=== PATIENT | male | born 1945 | race Caucasian/White ===

== ENCOUNTER 2016-08-05 09:28 | Emergency (ER) | payer MEDICARE, OTHER ==
[2016-08-05] MEDS ORDERED: IPRATROPIUM/ALBUTEROL SULFATE 3 ML AMPUL.NEB NEB ONE (09:36)
[2016-08-05] MEDS ORDERED: metroNIDAZOLE/SODIUM CHLORIDE 500 MG in PREMIX BAG 1 BAG IV ONE (09:37)
[2016-08-05] MEDS ORDERED: KETOROLAC TROMETHAMINE 30 MG/1ML VIAL IVP ONE (09:38)
[2016-08-05 09:57] LABS: BASOPHILS % 0.4 (0.0-1.5); EOSINOPHILS % 2.1 % (0.0-6.8); LYMPHOCYTES # 1.9 # k/uL (0.6-4.0); MONOCYTES # 0.7 # k/uL (0.0-0.9); MONOCYTES % 5.7 % (0.0-11.0)
[2016-08-05 10:15] LABS: eGFR (African) > 60; eGFR (Non-African) > 60
--- NOTE | 2016-08-05 11:10 | Diagnostic Imaging Report ---
[facility] [address] [facility].[address] 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 COMPARISON: 04/22/2016 TECHNIQUE: 2 views of the chest were performed. FINDINGS: The lungs are hyperexpanded. ~Postoperative changes of CABG and left chest AICD are re-identified. ~There is question of subtle new right basilar infiltrate. ~No pneumothorax. ~The heart is borderline enlarged. IMPRESSION: 1. ~Pulmonary hyperexpansion and postoperative changes of the heart. 2. ~Subtle increased opacity in the right lung base may represent developing pneumonia. ~ Electronically signed on Aug 05, 2016 11:04:23 AM [employer] MAINFRAME SYSTEMS PROGRAMMER by: Bill Pena [facility]PITALViolet
--- NOTE | 2016-08-05 11:21 | ED Physician Documentation ---
Upper Respiratory Symptoms - HISTORIAN Historian: patient, spouse - HPI Stated Complaint: SOA and cough Chief Complaint: Cough/ Upper Respiratory Onset: days ago (3) Context: denies: recent foreign travel, insect bite(s), tick(s), recent chemotherapy Associated Symptoms: fever, chills, productive cough, shortness of breath Further Comments: yes (71 year old male patient presents with complaint of SOB, cough, fever and chills for the past 3 days.) - ROS CONST/EYES: denies: weakness CVS/RESP: shortness of breath. denies: chest pain LYMPH: denies: leg swelling, rash GI/: none NEURO/PSYCH: denies: fainting, dizziness MS/SKIN: denies: joint pain, muscle aches - PAST HX Lung Disease: none PE Risk Factors: hypertension Other History: cardiac disease, AMI, CHF, A-Fib, diabetes Type 2, hypertension, other (BPH, CVA 2013, EF 25% 2015) Surgeries/Procedures: cardiac bypass (09/2011), other (spleenectomy, cardiac cath 04/2016, PPM 10/2012) Allergies/Adverse Reactions: Allergies Allergy/AdvReac Type Severity Reaction Status Date / Time carbamazepine [From Tegretol] Allergy Verified 08/05/16 10:08 penicillin G Allergy Verified 08/05/16 10:08 phenytoin sodium Allergy Verified 08/05/16 10:08 [From Dilantin] phenytoin sodium extended Allergy Verified 08/05/16 10:08 [From Dilantin] Home Medications: Ambulatory Orders Medication Instructions Recorded Aspirin EC [Ecotrin] 81 mg PO DAILY 04/16/16 Atorvastatin Calcium [Lipitor] 80 mg PO HS 04/16/16 Finasteride [Proscar] 5 mg PO HS 04/16/16 Furosemide [Lasix] 40 mg PO BID 04/16/16 Glimepiride [Amaryl] 4 mg PO DAILY 04/16/16 Insulin Glargine,Hum.rec.anlog 10 units SQ AM 04/16/16 [Lantus Solostar] Insulin Glargine,Hum.rec.anlog 25 units SQ HS 04/16/16 [Lantus Solostar] Isosorbide Mononitrate [Imdur] 90 mg PO DAILY 04/16/16 Losartan Potassium [Cozaar] 25 mg PO DAILY 04/16/16 Nitroglycerin 0.4 mg SL DIRECTED PRN 04/16/16 Omeprazole [Prilosec] 40 mg PO DAILY 04/16/16 Spironolactone [Aldactone] 12.5 mg PO DAILY 04/16/16 Tamsulosin HCl [Flomax] 0.4 mg PO DAILY 04/16/16 Tramadol HCl [Ultram] 50 mg PO Q12 04/16/16 Warfarin Sodium 2.5 mg PO DAILY 04/16/16 - SOCIAL HX Smoking History: non-smoker - FAMILY HX Family History: denies: none - VITAL SIGNS Vital Signs: Vital Signs Temp Pulse Resp BP Pulse Ox 97.4 F L 54 L 18 138/76 97 08/05/16 09:29 08/05/16 11:00 08/05/16 09:29 08/05/16 09:29 08/05/16 11:00 - REVIEWED ASSESSMENTS Nursing Assessment Reviewed: Yes Vitals Reviewed: Yes Progress - Progress Progress: Multiple episodes of bradycardia noted, as low at 35 and 38 bpm, dual chamber ICD pacemaker. Heart rate ranging from 45-60. states Dr Mayes "had to call the i-marker and they set it lower during his last appointment because it wasn't doing right." Discussed lab and xray results with patient and , recommended consult with cardiology regarding rate. Patient agrees. 1145 Case discussed with Cardiology at [facility], will accept to Er for pacemaker evaluation. Patient accepted by Dr Miguel Mcclain. Will continue O2, levaquin started for CAP, blood cultures completed. ED Results Lab/Radiology - Lab Results Lab Results: Lab Results 08/05/16 08/05/16 08/05/16 10:48 09:50 09:50 WBC RBC Hgb Hct MCV MCH MCHC RDW Plt Count Neut % (Auto) Lymph % (Auto) [place] % (Auto) Eos % (Auto) Baso % (Auto) Neut # Lymph # [place] # Eos # Baso # Reactive Lymphs % Reactive Lymphs # PT 27.4 Seconds H Seconds (9.7-11.5) INR 2.5 H (0.9-1.1) Sodium Potassium Chloride Carbon Dioxide BUN Creatinine Estimated Creat Clear Est GFR ( Amer) Est GFR (Non-Af Amer) Glucose Calcium Total Bilirubin AST ALT Alkaline Phosphatase Troponin I < 0.03 ng/mL ng/mL (0.00-0.06) Total Protein Albumin Influenza Type A Ag Negative (NEGATIVE) Influenza Type B Ag Negative (NEGATIVE) 08/05/16 08/05/16 09:50 09:50 WBC 13.02 K/ul H K/ul (4.00-12.00) RBC 4.37 M/ul M/ul (3.90-5.20) Hgb 11.8 g/dL L g/dL (12.0-18.0) Hct 37.4 % % (37.0-53.0) MCV 85.4 fl fl (80.0-100.0) MCH 27.0 pg L pg (28.0-34.0) MCHC 31.6 g/dL g/dL (30.0-36.0) RDW 17.3 % H % (11.3-14.3) Plt Count 233 K/mm3 K/mm3 (130-400) Neut % (Auto) 76.7 % % (39.0-79.0) Lymph % (Auto) 14.3 % L % (16.0-50.0) [place] % (Auto) 5.7 % % (0.0-11.0) Eos % (Auto) 2.1 % % (0.0-6.8) Baso % (Auto) 0.4 (0.0-1.5) Neut # 10.0 # k/uL H # k/uL (1.4-7.7) Lymph # 1.9 # k/uL # k/uL (0.6-4.0) [place] # 0.7 # k/uL # k/uL (0.0-0.9) Eos # 0.3 # k/uL # k/uL (0.0-0.6) Baso # 0.0 # k/uL # k/uL (0.0-0.5) Reactive Lymphs % 0.9 % % (0.0-5.0) Reactive Lymphs # 0.1 # k/uL # k/uL (0.0-0.8) PT INR Sodium 138 mmol/L mmol/L (136-145) Potassium 4.0 mmol/L mmol/L (3.5-5.0) Chloride 112 mmol/L H mmol/L (98-110) Carbon Dioxide 29 mmol/L mmol/L (20-32) BUN 23 mg/dL mg/dL (10-26) Creatinine 0.9 mg/dL mg/dL (0.4-1.5) Estimated Creat Clear 75 Est GFR ( Amer) > 60 (60 - ) Est GFR (Non-Af Amer) > 60 (60 - ) Glucose 108 mg/dL H mg/dL (70-99) Calcium 9.2 mg/dL mg/dL (8.5-10.5) Total Bilirubin 0.6 mg/dL mg/dL (0.2-1.2) AST 32 U/L U/L (0-41) ALT 53 U/L H U/L (0-45) Alkaline Phosphatase 79 U/L U/L (46-116) Troponin I Total Protein 7.1 g/dL g/dL (6.0-8.5) Albumin 4.4 g/dL g/dL (3.0-5.5) Influenza Type A Ag Influenza Type B Ag - Radiology Radiology Impressions: HISTORY: 71-year-old male with cough and shortness of breath. COMPARISON: 04/22/2016 TECHNIQUE: 2 views of the chest were performed. FINDINGS: The lungs are hyperexpanded. Postoperative changes of CABG and left chest AICD are re-identified. There is question of subtle new right basilar infiltrate. No pneumothorax. The heart is borderline enlarged. IMPRESSION: 1. Pulmonary hyperexpansion and postoperative changes of the heart. 2. Subtle increased opacity in the right lung base may represent developing pneumonia. - Orders Orders: ED Orders Category Date Time Status Continuous EKG monitoring Q30M Care 08/05/16 09:35 Active Continuous Pulse Oximetry Q30M Care 08/05/16 09:[address] Saline Lock/IV NOW Care 08/05/16 09:35 Active CHEST 2 VIEW [CHEST P.A.&LAT 2 VIEWS] [RAD] Stat Exams 08/05/16 Completed BLOOD CULTURE Stat Lab 08/05/16 Ordered CBC/PLATELET/DIFF Stat Lab 08/05/16 09:50 Completed CMP Stat Lab 08/05/16 09:50 Completed INFLUENZA A&B Stat Lab 08/05/16 10:48 Completed PT [PT-INR] Stat Lab 08/05/16 09:50 Completed TROPONIN I (cTnI) Stat Lab 08/05/16 09:50 Completed UA W/MICRO IF INDICATED Stat Lab 08/05/16 09:35 Ordered Ipratropium/Albuterol Sulfate [Duoneb] Med 08/05/16 09:36 Discontinued 3 ml NEB NOW ONE Ketorolac Tromethamine [Toradol] Med 08/05/16 09:38 Discontinued 30 mg IVP NOW ONE Levofloxacin 250Mg/D5w 50Ml [Levaquin] 250 mg Med 08/05/16 11:40 Ordered Premix Bag [Premix Fluid] 1 bag IV NOW Levofloxacin 500Mg/D5w 100Ml [Levaquin] 500 mg Med 08/05/16 11:40 Ordered Premix Bag [Premix Fluid] 1 bag IV NOW metroNIDAZOLE/SODIUM CHLORIDE [Flagyl] 500 mg Med 08/05/16 09:37 Discontinued Premix Bag [Premix Fluid] 1 bag IV NOW Oxygen Daily Oxygen 08/05/16 10:45 Ordered EKG WITH COMPARISON Stat Ther 08/05/16 10:17 Ordered Upper Respiratory Symptoms - EXAM General Appearance: mild distress EENT: eyes nml inspection, nml ENT inspection, lids & conjunct. 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: oriented x3, neuro intact, mood/affect nml, CN's nml as tested Discharge Clincal Impression: CAP (community acquired pneumonia), Bradycardia Home Medications: Ambulatory Orders Aspirin EC [Ecotrin] 81 mg PO DAILY 04/16/16 Atorvastatin Calcium [Lipitor] 80 mg PO HS 04/16/16 Finasteride [Proscar] 5 mg PO HS 04/16/16 Furosemide [Lasix] 40 mg PO BID 04/16/16 Glimepiride [Amaryl] 4 mg PO DAILY 04/16/16 Insulin Glargine,Hum.rec.anlog [Lantus Solostar] 10 units SQ AM 04/16/16 Insulin Glargine,Hum.rec.anlog [Lantus Solostar] 25 units SQ HS 04/16/16 Isosorbide Mononitrate [Imdur] 90 mg PO DAILY 04/16/16 Losartan Potassium [Cozaar] 25 mg PO DAILY 04/16/16 Nitroglycerin 0.4 mg SL DIRECTED PRN 04/16/16 Omeprazole [Prilosec] 40 mg PO DAILY 04/16/16 Spironolactone [Aldactone] 12.5 mg PO DAILY 04/16/16 Tamsulosin HCl [Flomax] 0.4 mg PO DAILY 04/16/16 Tramadol HCl [Ultram] 50 mg PO Q12 04/16/16 Warfarin Sodium 2.5 mg PO DAILY 04/16/16 Condition: Fair Disposition: 02 XFER SHT-TRM HOSP Decision to Admit: NO Decision Time: 11:57
[2016-08-05] MEDS ORDERED: LEVOFLOXACIN 500MG/D5W 100ML 500 MG in PREMIX BAG 1 BAG IV ONE (11:40)
[2016-08-05] MEDS ORDERED: LEVOFLOXACIN 250MG/D5W 50ML 250 MG in PREMIX BAG 1 BAG IV ONE (11:40)
[2016-08-05] MEDS ORDERED: LEVOFLOXACIN 500MG/D5W 100ML 100 ML IV ONE (11:59)
[2016-08-05] MEDS ORDERED: LEVOFLOXACIN 250MG/D5W 50ML 50 ML IV ONE (12:00)
[2016-08-05 12:45] VITALS: BP 114/65
== END 2016-08-05 12:35 | disposition short-term general hospital (02) ==
LOC: ED 09:28
DX: J18.9 Pneumonia, unspecified organism (principal); R00.1 Bradycardia, unspecified; I10 Essential (primary) hypertension; E11.9 Type 2 diabetes mellitus without complications; I25.10 Atherosclerotic heart disease of native coronary artery without angina pectoris; I50.9 Heart failure, unspecified
CPT/HCPCS: 71020; 80053; 84484; 85025; 85610; 87040; 87400; 93005; J1956; 94640; 96365; 96367; 96375; 99284; S1016

== ENCOUNTER 2016-08-21 08:27 | Outpatient (CLI) | payer MEDICARE, OTHER | END 2016-08-21 08:30 | LOC: LAB 08:27 | PROVIDERS: ATTEND Internal Medicine Cardiovascular Disease | DX: Z51.81 Encounter for therapeutic drug level monitoring (principal); Z79.01 Long term (current) use of anticoagulants; I48.2 Chronic atrial fibrillation | CPT/HCPCS: 36415; 85610 ==

== ENCOUNTER 2016-08-27 14:16 | Outpatient (CLI) | payer MEDICARE, OTHER | END 2016-08-27 14:20 | LOC: CARD 14:16 | PROVIDERS: ATTEND Internal Medicine Cardiovascular Disease | DX: I25.5 Ischemic cardiomyopathy (principal) | CPT/HCPCS: G0463 ==

== ENCOUNTER 2016-09-02 08:40 | Outpatient (CLI) | payer MEDICARE, OTHER | END 2016-09-02 08:42 | LOC: LAB 08:40 | PROVIDERS: ATTEND Internal Medicine Cardiovascular Disease | DX: I48.2 Chronic atrial fibrillation (principal); Z79.01 Long term (current) use of anticoagulants | CPT/HCPCS: 36415; 85610 ==

== ENCOUNTER 2016-09-11 07:49 | Outpatient (CLI) | payer MEDICARE, OTHER | END 2016-09-11 07:50 | LOC: POD 07:49 | PROVIDERS: ATTEND Podiatrist Public Medicine | DX: E11.9 Type 2 diabetes mellitus without complications (principal); B35.1 Tinea unguium; L60.0 Ingrowing nail; M79.674 Pain in right toe(s); M79.675 Pain in left toe(s) | CPT/HCPCS: 11721; G0463 ==

== ENCOUNTER 2016-09-16 15:06 | Emergency (ER) | payer MEDICARE, OTHER ==
[2016-09-16] MEDS ORDERED: NITROGLYCERIN/D5W 250 ML IV ONE (15:15)
[2016-09-16] MEDS ORDERED: 0.9 % SODIUM CHLORIDE 1,000 ML IV ONE (15:16)
[2016-09-16 15:26] LABS: BASOPHILS % 0.4 (0.0-1.5); EOSINOPHILS % 1.5 % (0.0-6.8); LYMPHOCYTES # 2.4 # k/uL (0.6-4.0); MEAN CORPUSCULAR HEMOGLOBIN 26.9 pg (28.0-34.0); MONOCYTES # 0.9 # k/uL (0.0-0.9); MONOCYTES % 9.8 % (0.0-11.0); NEUTROPHILS # 5.6 # k/uL (1.4-7.7)
[2016-09-16] MEDS ORDERED: IPRATROPIUM/ALBUTEROL SULFATE 3 ML AMPUL.NEB NEB ONE (15:29)
[2016-09-16 15:43] LABS: eGFR (African) > 60; eGFR (Non-African) > 60
--- NOTE | 2016-09-16 15:58 | Diagnostic Imaging Report ---
GURJIT MCKEON (CREATIVE ENGAGEMENT DIRECTOR) - ER [facility] [address] [facility].[address] [address] Report Submission Date: Sep 16, 2016 3:35:23 PM SEE WHEELER Patient Study Name: KIMBER JOSEPH Date: Sep 16, 2016 3:19:01 PM SEE WHEELER MRN: [id number] Modality Type: CR Gender: M Description: CHEST : 43 Institution: [facility] Physician: GURJIT MCKEON (VIKAS) - ER Portable chest History: Chest pain, cough, shortness of breath Findings: Low lung volumes are observed. Cardiomegaly, central pulmonary artery and large mid, pulmonary vascular congestion, implantable cardiac defibrillator , and coronary artery bypass grafting are observed. There is no confluent infiltrate or pleural effusion. Pulmonary edema has resolved or nearly resolved since the August 05, 2016 exam. Impression: Mild congestive heart failure, improved since the prior exam. Electronically signed on Sep 16, 2016 3:35:23 PM SEE WHEELER by: Kimber PARIKH
[2016-09-16] MEDS ORDERED: methylPREDNISolone SOD SUCC 125 MG/2 ML VIAL IVP ONE (17:08)
--- NOTE | 2016-09-16 17:15 | ED Physician Documentation ---
Syncope/Near Syncope - HISTORIAN Historian: patient - HPI Stated Complaint: chest pain Chief Complaint: Near Syncope Witnessed: Yes Witnessed By: bystander Position at Time of Episode: standing Symptoms Prior to Episode: chest pain Character of Events(s): almost passed out Symptoms after Event: denies: confused after event, incontinent of urine, breathing shallow, breathing stopped, lost pulse Location of Injury: none Associated Symptoms: none Further Comments: yes (71 year old male patient brought in via EMS. Patient was exercising at the PT when he experience CP, his gave him 2 nitro tabs. Patient had near syncopal episode after the 2nd nitro tab. EMS was called. On arrival to ER patient c/o 11/11 chest pain, c/o cough. Denies SOB, denies edema in ankle or lower extremities. States he has been feeling good this week , except for his cough.) - ROS CONST: cough. denies: fever, chills EYES/ENT: none GI/: denies: diarrhea, black stools, problems urinating MS/SKIN/LYMPH: denies: joint pain, leg swelling, rash, swollen glands, ankle swelling NEURO/PSYCH: denies: confusion, anxiety, depression, other - PAST HX Cardiac Disease: CHF, AMI PE Risk Factors: hypertension Other History: diabetes Type 2, Other (BPH, CVA 2013, EF 25% 2015) Surgeries/Procedures: cardiac bypass ( redo 09/2011), other (spleenectomy, PPM 2012, cardiac cath 04/2016) Allergies/Adverse Reactions: Allergies Allergy/AdvReac Type Severity Reaction Status Date / Time carbamazepine [From Tegretol] Allergy Verified 08/05/16 10:08 penicillin G Allergy Verified 08/05/16 10:08 phenytoin sodium Allergy Verified 08/05/16 10:08 [From Dilantin] phenytoin sodium extended Allergy Verified 08/05/16 10:08 [From Dilantin] Home Medications: Ambulatory Orders Medication Instructions Recorded Aspirin EC [Ecotrin] 81 mg PO DAILY 04/16/16 Atorvastatin Calcium [Lipitor] 80 mg PO HS 04/16/16 Finasteride [Proscar] 5 mg PO HS 04/16/16 Furosemide [Lasix] 40 mg PO BID 04/16/16 Glimepiride [Amaryl] 4 mg PO DAILY 04/16/16 Insulin Glargine,Hum.rec.anlog 10 units SQ AM 04/16/16 [Lantus Solostar] Insulin Glargine,Hum.rec.anlog 25 units SQ HS 04/16/16 [Lantus Solostar] Isosorbide Mononitrate [Imdur] 90 mg PO DAILY 04/16/16 Losartan Potassium [Cozaar] 25 mg PO DAILY 04/16/16 Nitroglycerin 0.4 mg SL DIRECTED PRN 04/16/16 Omeprazole [Prilosec] 40 mg PO DAILY 04/16/16 Spironolactone [Aldactone] 12.5 mg PO DAILY 04/16/16 Tamsulosin HCl [Flomax] 0.4 mg PO DAILY 04/16/16 Tramadol HCl [Ultram] 50 mg PO Q12 04/16/16 Warfarin Sodium 2.5 mg PO DAILY 04/16/16 Benzonatate [Tessalon Perles] 200 mg PO TID PRN #30 capsule 09/16/16 Prednisone 30 mg PO DAILY #12 tablet 09/16/16 - SOCIAL HX Smoking History: non-smoker - FAMILY HX Family History: denies: none - VITAL SIGNS Vital Signs: Vital Signs Temp Pulse Resp BP Pulse Ox 97.5 F L 60 16 135/57 94 09/16/16 15:06 09/16/16 20:19 09/16/16 20:19 09/16/16 20:19 09/16/16 20:19 - REVIEWED ASSESSMENTS Nursing Assessment Reviewed: Yes Vitals Reviewed: Yes Progress - Progress Progress: ntg drip at 5mcg/min at arrival. Patient was given ASA in route. CP is not reproducible with palpation. 1600 No further CP 0/10, productive cough - old records reviewed [address] Parrish. Will recheck Trop at 1800, if negative - ok to dc home. Will start IV steroid, likely COPD exacerbation. NTG off. 1845 Trop negative, discharge instructions reviewed, and patient verbalized understanding. ED Results Lab/Radiology - Lab Results Lab Results: Lab Results 09/16/16 09/16/16 09/16/16 18:20 16:55 16:50 WBC RBC Hgb Hct MCV MCH MCHC RDW Plt Count Neut % (Auto) Lymph % (Auto) [place] % (Auto) Eos % (Auto) Baso % (Auto) Neut # Lymph # [place] # Eos # Baso # Reactive Lymphs % Reactive Lymphs # PT INR Sodium Potassium Chloride Carbon Dioxide BUN Creatinine Est GFR ( Amer) Est GFR (Non-Af Amer) Glucose Calcium Total Bilirubin AST ALT Alkaline Phosphatase Troponin I < 0.03 ng/mL L ng/mL (0.03-0.06) NT-Pro-B Natriuret Pep Total Protein Albumin Adenovirus DNA Negative (NEGATIVE) B. pertussis DNA (PCR) Negative (NEGATIVE) C. pneumoniae DNA (PCR) Negative (NEGATIVE) Coronavirus OC43 (PCR) Negative (NEGATIVE) Coronavirus HKU1 (PCR) Negative (NEGATIVE) Coronavirus 229E (PCR) Negative (NEGATIVE) Coronavirus NL63 (PCR) Negative (NEGATIVE) Human Metapneumovir RNA Negative (NEGATIVE) Influenza A (H1) PCR Negative (NEGATIVE) Influenza A (H1N1) Ab Negative (NEGATIVE) Influenza A (H1N1) Ag Negative (NEGATIVE) Influenza A (H3) Ab Negative (NEGATIVE) Influenza Type A Ag Negative (NEGATIVE) H.influenzae Type B Ab Negative (NEGATIVE) Influenza Type B Ag Negative (NEGATIVE) M.pneumoniae DNA (PCR) Negative (NEGATIVE) Parainfluenza 1 (PCR) Negative (NEGATIVE) Parainfluenza 2 (PCR) Negative (NEGATIVE) Parainfluenza 3 (PCR) Negative (NEGATIVE) Parainfluenza 4 (PCR) Negative (NEGATIVE) RSV (PCR) Negative (NEGATIVE) Rhinovirus (PCR) Negative (NEGATIVE) Virus Source Swab 09/16/16 09/16/16 09/16/16 15:15 15:15 15:15 WBC RBC Hgb Hct MCV MCH MCHC RDW Plt Count Neut % (Auto) Lymph % (Auto) [place] % (Auto) Eos % (Auto) Baso % (Auto) Neut # Lymph # [place] # Eos # Baso # Reactive Lymphs % Reactive Lymphs # PT 25.6 Seconds H Seconds (9.7-11.5) INR 2.4 H (0.9-1.1) Sodium 146 mmol/L H mmol/L (136-145) Potassium 3.5 mmol/L mmol/L (3.5-5.0) Chloride 108 mmol/L mmol/L (98-110) Carbon Dioxide 25 mmol/L mmol/L (20-32) BUN 22 mg/dL mg/dL (10-26) Creatinine 0.9 mg/dL mg/dL (0.4-1.5) Est GFR ( Amer) > 60 (60 - ) Est GFR (Non-Af Amer) > 60 (60 - ) Glucose 140 mg/dL H mg/dL (70-99) Calcium 9.8 mg/dL mg/dL (8.5-10.5) Total Bilirubin 0.5 mg/dL mg/dL (0.2-1.2) AST 28 U/L U/L (0-41) ALT 41 U/L U/L (0-45) Alkaline Phosphatase 73 U/L U/L (46-116) Troponin I < 0.03 ng/mL L ng/mL (0.03-0.06) NT-Pro-B Natriuret Pep 938.4 pg/mL H pg/mL (15.0-125.0) Total Protein 6.7 g/dL g/dL (6.0-8.5) Albumin 4.3 g/dL g/dL (3.0-5.5) Adenovirus DNA B. pertussis DNA (PCR) C. pneumoniae DNA (PCR) Coronavirus OC43 (PCR) Coronavirus HKU1 (PCR) Coronavirus 229E (PCR) Coronavirus NL63 (PCR) Human Metapneumovir RNA Influenza A (H1) PCR Influenza A (H1N1) Ab Influenza A (H1N1) Ag Influenza A (H3) Ab Influenza Type A Ag H.influenzae Type B Ab Influenza Type B Ag M.pneumoniae DNA (PCR) Parainfluenza 1 (PCR) Parainfluenza 2 (PCR) Parainfluenza 3 (PCR) Parainfluenza 4 (PCR) RSV (PCR) Rhinovirus (PCR) Virus Source 09/16/16 15:15 WBC 9.40 K/ul K/ul (4.00-12.00) RBC 4.22 M/ul M/ul (3.90-5.20) Hgb 11.4 g/dL L g/dL (12.0-18.0) Hct 35.8 % L % (37.0-53.0) MCV 84.7 fl fl (80.0-100.0) MCH 26.9 pg L pg (28.0-34.0) MCHC 31.8 g/dL g/dL (30.0-36.0) RDW 17.4 % H % (11.3-14.3) Plt Count 275 K/mm3 K/mm3 (130-400) Neut % (Auto) 60.0 % % (39.0-79.0) Lymph % (Auto) 25.8 % % (16.0-50.0) [place] % (Auto) 9.8 % % (0.0-11.0) Eos % (Auto) 1.5 % % (0.0-6.8) Baso % (Auto) 0.4 (0.0-1.5) Neut # 5.6 # k/uL # k/uL (1.4-7.7) Lymph # 2.4 # k/uL # k/uL (0.6-4.0) [place] # 0.9 # k/uL # k/uL (0.0-0.9) Eos # 0.1 # k/uL # k/uL (0.0-0.6) Baso # 0.0 # k/uL # k/uL (0.0-0.5) Reactive Lymphs % 2.4 % % (0.0-5.0) Reactive Lymphs # 0.2 # k/uL # k/uL (0.0-0.8) PT INR Sodium Potassium Chloride Carbon Dioxide BUN Creatinine Est GFR ( Amer) Est GFR (Non-Af Amer) Glucose Calcium Total Bilirubin AST ALT Alkaline Phosphatase Troponin I NT-Pro-B Natriuret Pep Total Protein Albumin Adenovirus DNA B. pertussis DNA (PCR) C. pneumoniae DNA (PCR) Coronavirus OC43 (PCR) Coronavirus HKU1 (PCR) Coronavirus 229E (PCR) Coronavirus NL63 (PCR) Human Metapneumovir RNA Influenza A (H1) PCR Influenza A (H1N1) Ab Influenza A (H1N1) Ag Influenza A (H3) Ab Influenza Type A Ag H.influenzae Type B Ab Influenza Type B Ag M.pneumoniae DNA (PCR) Parainfluenza 1 (PCR) Parainfluenza 2 (PCR) Parainfluenza 3 (PCR) Parainfluenza 4 (PCR) RSV (PCR) Rhinovirus (PCR) Virus Source - Orders Orders: ED Orders Category Date Time Status Continuous EKG monitoring Q30M Care 09/16/16 15:14 Active Continuous Pulse Oximetry Q30M Care 09/16/16 15:[address] Saline Lock/IV NOW Care 09/16/16 15:14 Active CHEST 1 VIEW [RAD] Stat Exams 09/16/16 15:14 Completed BNP [NT-proBNP] Stat Lab 09/16/16 15:15 Completed CBC/PLATELET/DIFF Stat Lab 09/16/16 15:15 Completed CMP Stat Lab 09/16/16 15:15 Completed INFLUENZA A&B Stat Lab 09/16/16 16:50 Completed PT [PT-INR] Stat Lab 09/16/16 15:15 Completed RESPIRATORY VIRAL PROFILE Stat Lab 09/16/16 16:55 Completed TROPONIN I (cTnI) Stat Lab 09/16/16 15:15 Completed TROPONIN I (cTnI) Stat Lab 09/16/16 18:20 Completed 0.9 % Sodium Chloride [Normal Saline] 1,000 ml Med 09/16/16 15:16 Discontinued IV .STK-MED Benzonatate [Tessalon] Med 09/16/16 19:03 Discontinued 200 mg PO NOW ONE Ipratropium/Albuterol Sulfate [Duoneb] Med 09/16/16 15:29 Discontinued 3 ml NEB NOW ONE Nitroglycerin/D5w [Ntg 0.2 mg/ml in D5w] 250 ml Med 09/16/16 15:15 Ordered IV 1T methylPREDNISolone SOD SUCC [Solu-MEDROL] Med 09/16/16 17:08 Discontinued 62.5 mg IVP NOW ONE EKG WITH COMPARISON Stat Ther 09/16/16 15:14 Completed Syncope Physical Exam - Physical Exam General Appearance: mild distress EENT: nml eye inspection, PERRL, nml ENT inspection, no apparent trauma, pharynx nml, no CSF leak Respiratory: no resp distress, other (fine crackles bases) CVS: reg rate & rhythm (1 degree AV, wide QRS), heart sounds normal, equal pulses, no murmur, no gallop, PMI nml, no JVD, no friction rub, other Skin: normal color, warm/dry, NR, INT, PAL, DR Extremities: non-tender, normal range of motion, no evidence of injury, no edema , J, 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 Your BS will run higher while on the steroid. See Dr Parrish in 2 days. Home Medications: Ambulatory Orders Aspirin EC [Ecotrin] 81 mg PO DAILY 04/16/16 Atorvastatin Calcium [Lipitor] 80 mg PO HS 04/16/16 Finasteride [Proscar] 5 mg PO HS 04/16/16 Furosemide [Lasix] 40 mg PO BID 04/16/16 Glimepiride [Amaryl] 4 mg PO DAILY 04/16/16 Insulin Glargine,Hum.rec.anlog [Lantus Solostar] 10 units SQ AM 04/16/16 Insulin Glargine,Hum.rec.anlog [Lantus Solostar] 25 units SQ HS 04/16/16 Isosorbide Mononitrate [Imdur] 90 mg PO DAILY 04/16/16 Losartan Potassium [Cozaar] 25 mg PO DAILY 04/16/16 Nitroglycerin 0.4 mg SL DIRECTED PRN 04/16/16 Omeprazole [Prilosec] 40 mg PO DAILY 04/16/16 Spironolactone [Aldactone] 12.5 mg PO DAILY 04/16/16 Tamsulosin HCl [Flomax] 0.4 mg PO DAILY 04/16/16 Tramadol HCl [Ultram] 50 mg PO Q12 04/16/16 Warfarin Sodium 2.5 mg PO DAILY 04/16/16 Benzonatate [Tessalon Perles] 200 mg PO TID PRN #30 capsule 09/16/16 Prednisone 30 mg PO DAILY #12 tablet 09/16/16 Condition: Stable Disposition: 01 HOME, SELF-CARE Decision to Admit: NO Decision Time: 19:00
[2016-09-16] MEDS ORDERED: BENZONATATE 100 MG CAPSULE PO ONE (19:03)
[2016-09-16 20:22] VITALS: BP 135/57
[2016-09-17 13:50] LABS: ADENOVIRUS DNA NEGATIVE (NEGATIVE); BORDETELLA PERTUSSIS DNA NEGATIVE (NEGATIVE); SOURCE: SWAB
== END 2016-09-16 18:50 | disposition home or self-care (01) ==
LOC: ED 15:06
DX: R07.9 Chest pain, unspecified (principal); J44.1 Chronic obstructive pulmonary disease with (acute) exacerbation
CPT/HCPCS: 71010; 80053; 83880; 84484; 85025; 85610; 87400; 87486; 87581; 87633; 87798; 93005; A9270; J2930; J7030; 96361; 96374; 99283; 99284

== ENCOUNTER 2016-09-24 14:47 | Outpatient (CLI) | payer MEDICARE, OTHER ==
[2016-09-24 17:18] LABS: eGFR (African) > 60; eGFR (Non-African) > 60
== END 2016-09-24 14:50 ==
LOC: CARD 14:47
PROVIDERS: ATTEND Internal Medicine Cardiovascular Disease
DX: I25.5 Ischemic cardiomyopathy (principal); I10 Essential (primary) hypertension; E11.9 Type 2 diabetes mellitus without complications; E78.5 Hyperlipidemia, unspecified; Z95.0 Presence of cardiac pacemaker; Z79.899 Other long term (current) drug therapy; Z79.01 Long term (current) use of anticoagulants
CPT/HCPCS: 36415; 80048; 93005; G0463

== ENCOUNTER 2016-10-01 14:36 | Outpatient (CLI) | payer MEDICARE, OTHER | END 2016-10-01 14:37 | LOC: CARD 14:36 | PROVIDERS: ATTEND Internal Medicine Cardiovascular Disease | DX: I50.9 Heart failure, unspecified (principal) | CPT/HCPCS: G0463 ==

== ENCOUNTER 2016-10-08 08:14 | Outpatient (CLI) | payer MEDICARE, OTHER | END 2016-10-08 09:00 | LOC: LAB 08:14 | PROVIDERS: ATTEND Internal Medicine Cardiovascular Disease | DX: Z51.81 Encounter for therapeutic drug level monitoring (principal); Z79.01 Long term (current) use of anticoagulants; I48.2 Chronic atrial fibrillation | CPT/HCPCS: 36415; 85610 ==

== ENCOUNTER 2016-11-05 14:19 | Outpatient (CLI) | payer MEDICARE, OTHER | END 2016-11-05 14:20 | LOC: CARD 14:19 | PROVIDERS: ATTEND Internal Medicine Cardiovascular Disease | DX: I25.5 Ischemic cardiomyopathy (principal) | CPT/HCPCS: G0463 ==

== ENCOUNTER 2016-11-12 07:50 | Outpatient (CLI) | payer MEDICARE, OTHER | END 2016-11-12 07:52 | LOC: LAB 07:50 | PROVIDERS: ATTEND Internal Medicine Cardiovascular Disease | DX: Z51.81 Encounter for therapeutic drug level monitoring (principal); Z79.01 Long term (current) use of anticoagulants; I48.2 Chronic atrial fibrillation | CPT/HCPCS: 36415; 85610 ==

== ENCOUNTER 2016-12-03 07:42 | Outpatient (CLI) | payer MEDICARE, OTHER | END 2016-12-03 07:43 | LOC: LAB 07:42 | PROVIDERS: ATTEND Internal Medicine Cardiovascular Disease | DX: Z51.81 Encounter for therapeutic drug level monitoring (principal); Z79.01 Long term (current) use of anticoagulants; I48.2 Chronic atrial fibrillation | CPT/HCPCS: 36415; 85610 ==

== ENCOUNTER 2016-12-25 08:44 | Outpatient (CLI) | payer MEDICARE, OTHER | END 2016-12-25 08:45 | LOC: POD 08:44 | PROVIDERS: ATTEND Podiatrist Public Medicine | DX: E11.9 Type 2 diabetes mellitus without complications (principal); B35.1 Tinea unguium; L60.0 Ingrowing nail; M79.674 Pain in right toe(s); M79.675 Pain in left toe(s) | CPT/HCPCS: 11721; G0463 ==

== ENCOUNTER 2016-12-27 11:04 | Outpatient (CLI) | payer MEDICARE, OTHER | END 2016-12-27 11:05 | LOC: LAB 11:04 | PROVIDERS: ATTEND Family Medicine | DX: E11.9 Type 2 diabetes mellitus without complications (principal) | CPT/HCPCS: 36415; 83036 ==

== ENCOUNTER 2017-01-07 08:42 | Outpatient (CLI) | payer MEDICARE, OTHER | END 2017-01-07 08:44 | LOC: LAB 08:42 | PROVIDERS: ATTEND Internal Medicine Cardiovascular Disease | DX: I48.2 Chronic atrial fibrillation (principal) | CPT/HCPCS: 36415; 85610 ==

== ENCOUNTER 2017-02-11 07:59 | Outpatient (CLI) | payer MEDICARE, OTHER | END 2017-02-11 08:00 | LOC: LAB 07:59 | PROVIDERS: ATTEND Internal Medicine Cardiovascular Disease | DX: I48.2 Chronic atrial fibrillation (principal) | CPT/HCPCS: 36415; 85610 ==

== ENCOUNTER 2017-02-11 15:12 | Outpatient (CLI) | payer MEDICARE, OTHER | END 2017-02-11 15:13 | LOC: CARD 15:12 | PROVIDERS: ATTEND Internal Medicine Cardiovascular Disease | DX: I25.5 Ischemic cardiomyopathy (principal); I10 Essential (primary) hypertension; I48.91 Unspecified atrial fibrillation; Z95.810 Presence of automatic (implantable) cardiac defibrillator; Z86.73 Personal history of transient ischemic attack (TIA), and cerebral infarction without residual deficits; I73.9 Peripheral vascular disease, unspecified; E11.9 Type 2 diabetes mellitus without complications; E78.5 Hyperlipidemia, unspecified; Z79.01 Long term (current) use of anticoagulants; Z79.82 Long term (current) use of aspirin | CPT/HCPCS: G0463 ==

== ENCOUNTER 2017-02-17 09:25 | Outpatient (CLI) | payer MEDICARE, OTHER | END 2017-02-17 09:26 | LOC: RT 09:25 | PROVIDERS: ATTEND Internal Medicine Cardiovascular Disease | DX: I25.5 Ischemic cardiomyopathy (principal) | CPT/HCPCS: 94761 ==

== ENCOUNTER 2017-02-23 18:58 | Emergency (ER) | payer MEDICARE, OTHER ==
--- NOTE | 2017-02-23 19:01 | ED Physician Documentation ---
General Adult - HISTORIAN Historian: patient, spouse - [facility] Stated Complaint: hip pain Chief Complaint: General Adult Onset: days ago Timing: still present Severity: moderate Further Comments: yes (Pt is a 72 yo male with spontaneous onset of L hip pain. Pt early complained to his of L foot pain. Later he developed L hip pain. No previous hx hip pain, he says. Pain is worse with weight bearing. 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 Pt has hx gout and states that he has had gouty joint pain in the past.) - ROS CONST: no problems EYES/ENT: none CVS/RESP: none GI/: none MS/SKIN/LYMPH: other (L hip & L foot pain) - PAST HX Past History: other (CHF, COPD, DM, HLD, HTN, Stents & CABG, splenectomy, appendectomy) Allergies/Adverse Reactions: Allergies Allergy/AdvReac Type Severity Reaction Status Date / Time carbamazepine [From Tegretol] Allergy Verified 02/23/17 19:01 penicillin G Allergy Verified 02/23/17 19:01 phenytoin sodium Allergy Verified 02/23/17 19:01 [From Dilantin] phenytoin sodium extended Allergy Verified 02/23/17 19:01 [From Dilantin] Home Medications: Ambulatory Orders Medication Instructions Recorded Aspirin EC [Ecotrin] 81 mg PO DAILY 04/16/16 Atorvastatin Calcium [Lipitor] 80 mg PO HS 04/16/16 Finasteride [Proscar] 5 mg PO HS 04/16/16 Furosemide [Lasix] 40 mg PO BID 04/16/16 Insulin Glargine,Hum.rec.anlog 10 units SQ AM 04/16/16 [Lantus Solostar] Insulin Glargine,Hum.rec.anlog 25 units SQ HS 04/16/16 [Lantus Solostar] Isosorbide Mononitrate [Imdur] 90 mg PO DAILY 04/16/16 Losartan Potassium [Cozaar] 25 mg PO DAILY 04/16/16 Nitroglycerin 0.4 mg SL DIRECTED PRN 04/16/16 Omeprazole [Prilosec] 40 mg PO DAILY 04/16/16 Spironolactone [Aldactone] 12.5 mg PO DAILY 04/16/16 Tamsulosin HCl [Flomax] 0.4 mg PO DAILY 04/16/16 Tramadol HCl [Ultram] 50 mg PO Q12 04/16/16 Warfarin Sodium 2.5 mg PO DAILY 04/16/16 Benzonatate [Tessalon Perles] 200 mg PO TID PRN #30 capsule 09/16/16 Antiarthritic Combination No.2 900 mg PO QDAY 02/23/17 [Glucosamine-Chondroitin] Multivitamin/Ferrous Sulfate 18 mg PO QDAY 02/23/17 [One-Daily Wjnyv-Whf-Xzre Tab] Prednisone 40 mg PO DAILY 02/23/17 amLODIPine BESYLATE [Norvasc] 2.5 mg PO 0900 02/23/17 - SOCIAL HX Smoking History: non-smoker - FAMILY HX Family History: No - VITAL SIGNS Vital Signs: Vital Signs Temp Pulse Resp BP Pulse Ox 135/57 09/16/16 20:19 - REVIEWED ASSESSMENTS Nursing Assessment Reviewed: Yes Vitals Reviewed: Yes Progress - Progress Progress: X-ray L foot: No acute osseous process. X-ray L hip & pelvis: Degenerative spurring. No acute osseous abnormality. [place] (5/325) 2 tabs po in ER. Uric Acid = 10.2 Solu-medrol 80 mg IM in ER. Rx Colchicine 0.6 mg. Take 2 tablets by mouth and then 1 tablet after 1 hr. Rx Prednisone 50 mg. Take one once daily for 4 days. Rx [place] (5/325). Take 1 or 2 every 4 to 6 hrs as needed for moderate to severe pain. Follow up with primary provider in 1 week for reassessment and treatment of gout. General Adult Physical Exam - PHYSICAL EXAM GENERAL APPEARANCE: moderate distress NECK: normal inspection, supple RESPIRATORY: no resp distress, chest non-tender, breath sounds normal CVS: reg rate & rhythm, heart sounds normal BACK: normal inspection SKIN: warm/dry, normal color EXTREMITIES: other (L hip tenderness; no LE rotation or shortening. Pain with flexion. L foot: no swelling, no redness.) NEURO: oriented X3, motor nml, sensation nml Discharge Clincal Impression: elevated uric acid, hx gout Hip pain Qualifiers: Laterality: left Qualified Code(s): M25.552 - Pain in left hip Referrals: Joanne Parrish MD [Primary Care Provider] - Home Medications: Ambulatory Orders Aspirin EC [Ecotrin] 81 mg PO DAILY 04/16/16 Atorvastatin Calcium [Lipitor] 80 mg PO HS 04/16/16 Finasteride [Proscar] 5 mg PO HS 04/16/16 Furosemide [Lasix] 40 mg PO BID 04/16/16 Insulin Glargine,Hum.rec.anlog [Lantus Solostar] 10 units SQ AM 04/16/16 Insulin Glargine,Hum.rec.anlog [Lantus Solostar] 25 units SQ HS 04/16/16 Isosorbide Mononitrate [Imdur] 90 mg PO DAILY 04/16/16 Losartan Potassium [Cozaar] 25 mg PO DAILY 04/16/16 Nitroglycerin 0.4 mg SL DIRECTED PRN 04/16/16 Omeprazole [Prilosec] 40 mg PO DAILY 04/16/16 Spironolactone [Aldactone] 12.5 mg PO DAILY 04/16/16 Tamsulosin HCl [Flomax] 0.4 mg PO DAILY 04/16/16 Tramadol HCl [Ultram] 50 mg PO Q12 04/16/16 Warfarin Sodium 2.5 mg PO DAILY 04/16/16 Benzonatate [Tessalon Perles] 200 mg PO TID PRN #30 capsule 09/16/16 Antiarthritic Combination No.2 [Glucosamine-Chondroitin] 900 mg PO QDAY Multivitamin/Ferrous Sulfate [One-Daily Lvzwi-Nbo-Vnzg Tab] 18 mg PO QDAY Prednisone 40 mg PO DAILY 02/23/17 amLODIPine BESYLATE [Norvasc] 2.5 mg PO 0900 02/23/17 Condition: Stable Disposition: 01 HOME, SELF-CARE Decision to Admit: NO Decision Time: 21:51
--- NOTE | 2017-02-23 19:51 | Diagnostic Imaging Report ---
HALEIGH CHOWDHURY - YUNG [facility] [address] [facility] [address] [address] Report Submission Date: Feb 23, 2017 7:46:28 PM CDT Patient Study Name: KIMBER JOSEPH Date: Feb 23, 2017 7:24:14 PM CDT MRN: [id number] Modality Type: CR Gender: M Description: PELVIS : 41 Institution: [facility] Physician: HALEIGH CHOWDHURY - YUNG Examination: Plain film pelvis/hip History: Hip discomfort Comparison exams: None provided Findings: 3 views of the pelvis and hip demonstrate normal cortical margins. No fracture no dislocation. Joint space narrowing. Groin and vascular calcifications. Pelvic phleboliths. Lumbar fixation hardware. Impression: Degenerative spurring. No acute osseous abnormality. Electronically signed on Feb 23, 2017 7:46:28 PM CDT by: Zeferino PARIKH
[2017-02-23] MEDS: HYDROcodone /APAP 5/325 1 EACH TABLET PO ONE (20:04)
--- NOTE | 2017-02-23 20:20 | Diagnostic Imaging Report ---
HALEIGH CHOWDHURY YUNG [facility] [address] [facility] [address] [address] Report Submission Date: Feb 23, 2017 7:42:33 PM CDT Patient Study Name: KIMBER JOSEPH Date: Feb 23, 2017 7:16:35 PM CDT MRN: [id number] Modality Type: CR Gender: M Description: LOWER EXTREMITY : 41 Institution: [facility] Physician: HALEIGH CHOWDHURY - YUNG Examination: Plain film foot History: Discomfort Findings: 3 views of the foot demonstrates normal cortical margins. No fracture or dislocation. Mild osteopenia. Early articular degenerative changes. No soft tissue swelling. No joint effusion. Scattered vascular calcifications. Impression: No acute osseous process. Electronically signed on Feb 23, 2017 7:42:33 PM CDT by: Zeferino PARIKH
[2017-02-23 21:12] LABS: BASOPHILS % 0.7 (0.0-1.5); EOSINOPHILS % 3.2 % (0.0-6.8); MEAN CORPUSCULAR HEMOGLOBIN 29.2 pg (28.0-34.0); MEAN CORPUSCULAR VOLUME 85.3 fl (80.0-100.0); MONOCYTES % 10.1 % (0.0-11.0); NEUTROPHILS # 4.9 # k/uL (1.4-7.7)
[2017-02-23 21:29] LABS: eGFR (African) > 60; eGFR (Non-African) > 60
[2017-02-23] MEDS ORDERED: methylPREDNISolone SOD SUCC 40 MG/ML VIAL ONE (21:38)
[2017-02-23] MEDS ORDERED: KETOROLAC TROMETHAMINE 30 MG/1ML VIAL ONE (21:38)
[2017-02-23] MEDS: methylPREDNISolone SOD SUCC 40 MG/ML VIAL IM ONE (21:43)
[2017-02-23] MEDS: KETOROLAC TROMETHAMINE 30 MG/1ML VIAL IM ONE (21:43)
[2017-02-23 23:11] VITALS: BP 126/62
== END 2017-02-23 22:00 | disposition home or self-care (01) ==
LOC: ED 18:58
DX: E79.0 Hyperuricemia without signs of inflammatory arthritis and tophaceous disease (principal); M25.552 Pain in left hip
CPT/HCPCS: 73502; 73630; 80053; 84550; 85025; A9270; J1030; 96372; 99283; J1885; J2920

== ENCOUNTER 2017-03-18 07:45 | Outpatient (CLI) | payer MEDICARE, OTHER | END 2017-03-18 09:45 | LOC: LAB 07:45 | PROVIDERS: ATTEND Internal Medicine Cardiovascular Disease | DX: I48.2 Chronic atrial fibrillation (principal) | CPT/HCPCS: 36415; 85610 ==

== ENCOUNTER 2017-03-26 08:23 | Outpatient (CLI) | payer MEDICARE, OTHER | END 2017-03-26 08:24 | LOC: POD 08:23 | PROVIDERS: ATTEND Podiatrist Public Medicine | DX: E11.9 Type 2 diabetes mellitus without complications (principal); M10.072 Idiopathic gout, left ankle and foot; B35.1 Tinea unguium; L60.0 Ingrowing nail; M79.674 Pain in right toe(s); M79.675 Pain in left toe(s) | CPT/HCPCS: 11721; G0463 ==

== ENCOUNTER 2017-04-15 07:24 | Outpatient (CLI) | payer MEDICARE, OTHER ==
[2017-04-15 08:16] LABS: eGFR (African) > 60; eGFR (Non-African) > 60
== END 2017-04-15 07:25 ==
LOC: LAB 07:24
PROVIDERS: ATTEND Internal Medicine Cardiovascular Disease
DX: I48.2 Chronic atrial fibrillation (principal); Z79.4 Long term (current) use of insulin; E11.9 Type 2 diabetes mellitus without complications
CPT/HCPCS: 36415; 80053; 80061; 83036; 85610

== ENCOUNTER 2017-04-15 14:39 | Outpatient (CLI) | payer MEDICARE, OTHER | END 2017-04-15 14:40 | LOC: CARD 14:39 | PROVIDERS: ATTEND Internal Medicine Cardiovascular Disease | DX: I25.5 Ischemic cardiomyopathy (principal); I50.9 Heart failure, unspecified; I48.91 Unspecified atrial fibrillation; I73.89 Other specified peripheral vascular diseases; E11.9 Type 2 diabetes mellitus without complications; E78.5 Hyperlipidemia, unspecified; Z79.01 Long term (current) use of anticoagulants; Z79.899 Other long term (current) drug therapy | CPT/HCPCS: G0463 ==

== ENCOUNTER 2017-05-02 13:49 | Emergency (ER) | payer MEDICARE, OTHER ==
[2017-05-02 14:08] LABS: BASOPHILS % 0.5 (0.0-1.5); EOSINOPHILS % 1.9 % (0.0-6.8); MEAN CORPUSCULAR HEMOGLOBIN 28.5 pg (28.0-34.0); MEAN CORPUSCULAR VOLUME 85.4 fl (80.0-100.0); MONOCYTES % 5.1 % (0.0-11.0); NEUTROPHILS # 9.6 # k/uL (1.4-7.7)
--- NOTE | 2017-05-02 14:18 | Diagnostic Imaging Report ---
HALEIGH CHOWDHURY [facility] [address] [facility].[address] [address] Report Submission Date: May 02, 2017 2:17:15 PM CDT Patient Study Name: KIMBER JOSEPH Date: May 02, 2017 1:59:41 PM CDT MRN: [id number] Modality Type: CR Gender: M Description: CHEST : 41 Institution: [facility] Physician: HALEIGH CHOWDHURY Examination: Portable chest History: Chest discomfort Comparison exam: 16 September 2016 Findings: Single view of the chest demonstrates a normal cardiac silhouette. Sternotomy wires. Vascular calcifications involving the aortic arch. Left-sided cardiac pacemaker. Stable prominence of the central pulmonary vasculature. Lung mckenzie without peripheral infiltrate. No effusion. Osseous structures are appropriate for age. Impression: Stable chronic changes and prominent central pulmonary vasculature. No peripheral consolidation or effusion. Electronically signed on May 02, 2017 2:17:15 PM CDT by: Zeferino PARIKH
[2017-05-02 14:20] LABS: eGFR (African) > 60; eGFR (Non-African) > 60
--- NOTE | 2017-05-02 14:24 | ED Physician Documentation ---
General Adult - HISTORIAN Historian: patient - HPI Stated Complaint: chest pain due to cough Chief Complaint: General Adult Onset: days ago (3) Timing: still present Severity: moderate Further Comments: yes (Pt is a 72 yo male with sob, cough, that has been worsening over the past 2 days. Pt has not had fever. Pt has had chest pain, but this is associated with coughing. Pt has hx CHF, Afib, pacemaker, COPD. Pt was rx'd symbicort, among other meds, but stopped taking symbicort when he was feeling well.) - ROS CONST: weakness EYES/ENT: other (cough) CVS/RESP: chest pain (pt says cp is 2nd to cough), shortness of breath, cough GI/: none MS/SKIN/LYMPH: none - PAST HX Past History: other (Afib, CAD, EF 25% with global hypokinesis, CHF, HTN, Pacemaker, DM, HLD, pneumonia, CVA, seizure, Diverticulitis, cancer, OA, BPH.) Surgeries/Procedures: cardiac bypass, other (pacemaker, arthroscopy) Allergies/Adverse Reactions: Allergies Allergy/AdvReac Type Severity Reaction Status Date / Time carbamazepine [From Tegretol] Allergy Verified 05/02/17 14:19 penicillin G Allergy Verified 05/02/17 14:19 phenytoin sodium Allergy Verified 05/02/17 14:19 [From Dilantin] phenytoin sodium extended Allergy Verified 05/02/17 14:19 [From Dilantin] Home Medications: Ambulatory Orders Medication Instructions Recorded Aspirin EC [Ecotrin] 81 mg PO DAILY 04/16/16 Atorvastatin Calcium [Lipitor] 80 mg PO HS 04/16/16 Finasteride [Proscar] 5 mg PO HS 04/16/16 Insulin Glargine,Hum.rec.anlog 10 units SQ AM 04/16/16 [Lantus Solostar] Insulin Glargine,Hum.rec.anlog 25 units SQ HS 04/16/16 [Lantus Solostar] Isosorbide Mononitrate [Imdur] 90 mg PO DAILY 04/16/16 Losartan Potassium [Cozaar] 25 mg PO DAILY 04/16/16 Nitroglycerin 0.4 mg SL DIRECTED PRN 04/16/16 Omeprazole [Prilosec] 40 mg PO DAILY 04/16/16 Spironolactone [Aldactone] 12.5 mg PO DAILY 04/16/16 Tamsulosin HCl [Flomax] 0.4 mg PO DAILY 04/16/16 Antiarthritic Combination No.2 900 mg PO QDAY 02/23/17 [Glucosamine-Chondroitin] Multivitamin/Ferrous Sulfate 18 mg PO QDAY 02/23/17 [One-Daily Imssi-Naz-Sxxw Tab] Ascorbic Acid [C-1000] 1,000 mg PO QDAY 05/02/17 Budesonide/Formoterol Fumarate 2 puff IH Q12H 05/02/17 [Symbicort 160-4.5 Mcg Inhaler] Metolazone [Zaroxolyn] 5 mg PO QD 05/02/17 [place]-3 Fatty Acids/Epa [Neurepa 1 2 gm PO BID 05/02/17 Gram Capsule] - SOCIAL HX Smoking History: non-smoker - FAMILY HX Family History: No - VITAL SIGNS Vital Signs: Vital Signs Temp Pulse Resp BP Pulse Ox 97.7 F 59 L 14 123/66 93 05/02/17 13:49 05/02/17 13:57 05/02/17 13:49 05/02/17 13:49 05/02/17 13:57 - REVIEWED ASSESSMENTS Nursing Assessment Reviewed: Yes Vitals Reviewed: Yes Progress - Progress Progress: CXR: Single view of the chest demonstrates a normal cardiac silhouette. Sternotomy wires. Vascular calcifications involving the aortic arch. Left-sided cardiac pacemaker. Stable prominence of the central pulmonary vasculature. Lung mckenzie without peripheral infiltrate. No effusion. Osseous structures are appropriate for age. Impression: Stable chronic changes and prominent central pulmonary vasculature. No peripheral consolidation or effusion. Duoneb HFN x 1 Pulmicort HFN Resume Symbicort as directed. F/u with Dr. Glass tomorrow 05/03/17 at 10 am in clinic. - EKG/XRAY/CT EKG: rhythm (undertermined rhythm, pvc's, no pacer spikes seen; HR=67.) ED Results Lab/Radiology - Lab Results Lab Results: Lab Results 05/02/17 05/02/17 14:00 14:00 WBC 13.50 K/ul H K/ul (4.00-12.00) RBC 4.13 M/ul M/ul (3.90-5.20) Hgb 11.8 g/dL L g/dL (12.0-18.0) Hct 35.2 % L % (37.0-53.0) MCV 85.4 fl fl (80.0-100.0) MCH 28.5 pg pg (28.0-34.0) MCHC 33.4 g/dL g/dL (30.0-36.0) RDW 17.7 % H % (11.3-14.3) Plt Count 207 K/mm3 K/mm3 (130-400) Neut % (Auto) 71.1 % % (39.0-79.0) Lymph % (Auto) 20.4 % % (16.0-50.0) [facility] % (Auto) 5.1 % % (0.0-11.0) Eos % (Auto) 1.9 % % (0.0-6.8) Baso % (Auto) 0.5 (0.0-1.5) Neut # (Auto) 9.6 # k/uL H # k/uL (1.4-7.7) Lymph # (Auto) 2.8 # k/uL # k/uL (0.6-4.0) [facility] # (Auto) 0.7 # k/uL # k/uL (0.0-0.9) Eos # (Auto) 0.3 # k/uL # k/uL (0.0-0.6) Baso # (Auto) 0.1 # k/uL # k/uL (0.0-0.5) Reactive Lymphs % 0.9 % % (0.0-5.0) Reactive Lymphs # 0.1 # k/uL # k/uL (0.0-0.8) Sodium 139 mmol/L mmol/L (137-145) Potassium 3.5 mmol/L mmol/L (3.5-5.1) Chloride 106 mmol/L mmol/L (98-107) Carbon Dioxide 26 mmol/L mmol/L (22-30) BUN 24 mg/dL H mg/dL (9-20) Creatinine 0.90 mg/dL mg/dL (0.66-1.25) Estimated Creat Clear 72 Est GFR ( Amer) > 60 (60 - ) Est GFR (Non-Af Amer) > 60 (60 - ) Glucose 170 mg/dL H mg/dL (74-106) Calcium 8.8 mg/dL mg/dL (8.4-10.2) Total Bilirubin 0.3 mg/dL mg/dL (0.2-1.3) AST 28 U/L U/L (15-46) ALT 40 U/L U/L (13-69) Alkaline Phosphatase 72 U/L U/L (38-126) Creatine Kinase 88 U/L U/L (55-170) Total Protein 6.2 g/dL L g/dL (6.3-8.2) Albumin 3.3 g/dL L g/dL (3.5-5.0) - Orders Orders: ED Orders Category Date Time Status Continuous EKG monitoring Q30M Care 05/02/17 13:57 Active Continuous Pulse Oximetry Q30M Care 05/02/17 13:57 Active CHEST 1 VIEW [RAD] Stat Exams 05/02/17 13:57 Completed BLOOD CULTURE Stat Lab 05/02/17 Ordered CBC/PLATELET/DIFF Routine Lab 05/02/17 14:00 Completed CKMB Stat Lab 05/02/17 14:00 Received CMP Routine Lab 05/02/17 14:00 Completed CREATINE KINASE Routine Lab 05/02/17 14:00 Completed NT-proBNP Stat Lab 05/02/17 14:00 Received TROPONIN I (cTnI) Stat Lab 05/02/17 14:00 Received Oxygen Daily Oxygen 05/02/17 14:00 Ordered EKG WITH COMPARISON Stat Ther 05/02/17 13:57 Ordered General Adult Physical Exam - PHYSICAL EXAM GENERAL APPEARANCE: moderate distress EENT: pharynx normal NECK: normal inspection, supple RESPIRATORY: wheezes (R lower lung field) CVS: irregularly irregular rhy ABDOMEN: soft, no organomegaly, normal bowel sounds BACK: normal inspection, no CVA tenderness SKIN: warm/dry, normal color EXTREMITIES: non-tender, normal range of motion NEURO: oriented X3, motor nml, sensation nml Discharge Clincal Impression: sob, cough COPD (chronic obstructive pulmonary disease) Qualifiers: COPD type: unspecified COPD Qualified Code(s): J44.9 - Chronic obstructive pulmonary disease, unspecified Referrals: Joanne Parrish MD [Primary Care Provider] - Condition: Stable Disposition: 01 HOME, SELF-CARE Decision to Admit: NO Decision Time: 16:21
[2017-05-02] MEDS ORDERED: IPRATROPIUM/ALBUTEROL SULFATE 3 ML AMPUL.NEB NEB ONE (14:46)
[2017-05-02] MEDS ORDERED: BUDESONIDE 0.5MG/2ML AMPUL.NEB NEB SCH (16:00)
[2017-05-02] MEDS ORDERED: BUDESONIDE 0.5MG/2ML AMPUL.NEB NEB ONE (16:04)
[2017-05-02 16:32] VITALS: BP 125/56
== END 2017-05-02 16:22 | disposition home or self-care (01) ==
LOC: SUPCPDRO 13:49 → ED 13:49
DX: R06.02 Shortness of breath (principal); R05 Cough; J44.9 Chronic obstructive pulmonary disease, unspecified
CPT/HCPCS: 71010; 80053; 82550; 82553; 83880; 84484; 85025; 85379; 87040; 93005; J7626; 99283; S1016

== ENCOUNTER 2017-05-16 17:07 | Inpatient (IN) | payer MEDICARE, OTHER ==
[2017-05-16] MEDS ORDERED: 0.9 % SODIUM CHLORIDE 500 ML IV ONE (17:54)
[2017-05-16] MEDS ORDERED: IPRATROPIUM/ALBUTEROL SULFATE 3 ML AMPUL.NEB NEB ONE (17:54)
[2017-05-16] MEDS ORDERED: BUDESONIDE 0.5MG/2ML AMPUL.NEB NEB SCH (18:00)
[2017-05-16 18:45] LABS: BASOPHILS % 0.3 (0.0-1.5); EOSINOPHILS % 0.6 % (0.0-6.8); MEAN CORPUSCULAR HEMOGLOBIN 26.9 pg (28.0-34.0); MEAN CORPUSCULAR VOLUME 84.8 fl (80.0-100.0); MONOCYTES % 8.2 % (0.0-11.0); NEUTROPHILS # 12.3 # k/uL (1.4-7.7)
--- NOTE | 2017-05-16 18:56 | Diagnostic Imaging Report ---
NICOLLE VILLAFANA [facility] [address] [facility].[address] [address] Report Submission Date: May 16, 2017 6:53:28 PM CDT Patient Study Name: KIMBER JOSEPH Date: May 16, 2017 6:21:11 PM CDT MRN: [id number] Modality Type: CR Gender: M Description: CHEST : 41 Institution: [facility] Physician: NICOLLE VILLAFANA a prior radiograph of the chest Clinical history Comparison May 02, 2017 Technique PA upright Findings: Cardiomegaly is unchanged. The aorta is tortuous and calcified. Pacemaker is unchanged. There is a new infiltrate in the medial right lung base.. Central pulmonary vascularity is within normal limits. Impression: New medial right lung base infiltrate otherwise no change from the previous chest radiograph of the aida Electronically signed on May 16, 2017 6:53:28 PM CDT by: Chiki PARIKH
[2017-05-16 18:58] LABS: eGFR (African) > 60; eGFR (Non-African) > 60
--- NOTE | 2017-05-16 18:58 | Diagnostic Imaging Report ---
NICOLLE VILLAFANA [facility] [address] [facility].[address] [address] Report Submission Date: May 16, 2017 6:55:50 PM CDT Patient Study Name: KIMBER JOSEPH Date: May 16, 2017 6:28:11 PM CDT MRN: [id number] Modality Type: CR Gender: M Description: ABDOMEN : 41 Institution: [facility] Physician: NICOLLE VILLAFANA Clinical history: Abdominal pain Technique ap supine radiograph of the abdomen Findings: The bowel gas pattern is nonspecific. No renal calcifications are seen. No abdominal mass. Postoperative changes overlie the abdomen. There is lumbar fusion. Heavy aortoiliac vascular calcification is present. Impression: Extensive vascular calcification. L5/S1 fusion Postoperative changes in the abdomen Nonspecific bowel gas pattern Electronically signed on May 16, 2017 6:55:50 PM CDT by: Chiki PARIKH
[2017-05-16] MEDS ORDERED: cefTRIAXone SODIUM ADVANTAGE 1 GM in NORMAL SALINE ADD-VANTAGE 50 ML IV ONE (19:48)
[2017-05-16] MEDS ORDERED: cefTRIAXone SODIUM 1 GM VIAL ONE (20:07)
--- NOTE | 2017-05-16 20:09 | ED Physician Documentation ---
Upper Respiratory Symptoms - HISTORIAN Historian: patient - HPI Stated Complaint: Cough- Shortness of Breath Chief Complaint: Cough/ Upper Respiratory Additional Information: Wet cough for several weeks, no improvement with Symbicort. Onset: days ago (14) Duration: sudden-Onset Context: denies: recent foreign travel, insect bite(s), tick(s), recent chemotherapy, multiple patients, same sx Severity: moderate Associated Symptoms: productive cough Worsened by Deep Breath: Yes Further Comments: no - ROS CONST/EYES: denies: weakness, eye redness, eye itching CVS/RESP: other (productive cough). denies: chest pain, shortness of breath, palpitations LYMPH: denies: leg swelling, rash, swollen glands, ankle swelling GI/: none NEURO/PSYCH: denies: fainting, dizziness, confusion, anxiety, depression MS/SKIN: denies: joint pain, muscle aches, rash - PAST HX Lung Disease: COPD PE Risk Factors: hypertension Other History: cardiac disease, CHF, diabetes Type 2, hypertension, other (bph, hyperlipidemia, gerd) Surgeries/Procedures: cardiac bypass, cholecystectomy Immunizations: referred to PCP Allergies/Adverse Reactions: Allergies Allergy/AdvReac Type Severity Reaction Status Date / Time carbamazepine [From Tegretol] Allergy Verified 05/02/17 14:19 penicillin G Allergy Verified 05/02/17 14:19 phenytoin sodium Allergy Verified 05/02/17 14:19 [From Dilantin] phenytoin sodium extended Allergy Verified 05/02/17 14:19 [From Dilantin] Home Medications: Ambulatory Orders Medication Instructions Recorded Aspirin EC [Ecotrin] 81 mg PO DAILY 04/16/16 Atorvastatin Calcium [Lipitor] 80 mg PO HS 04/16/16 Finasteride [Proscar] 5 mg PO HS 04/16/16 Insulin Glargine,Hum.rec.anlog 10 units SQ AM 04/16/16 [Lantus Solostar] Insulin Glargine,Hum.rec.anlog 25 units SQ HS 04/16/16 [Lantus Solostar] Isosorbide Mononitrate [Imdur] 90 mg PO DAILY 04/16/16 Losartan Potassium [Cozaar] 25 mg PO DAILY 04/16/16 Nitroglycerin 0.4 mg SL DIRECTED PRN 04/16/16 Omeprazole [Prilosec] 40 mg PO DAILY 04/16/16 Tamsulosin HCl [Flomax] 0.4 mg PO DAILY 04/16/16 Antiarthritic Combination No.2 900 mg PO QDAY 02/23/17 [Glucosamine-Chondroitin] Multivitamin/Ferrous Sulfate 18 mg PO QDAY 02/23/17 [One-Daily Fpjpa-Wrh-Ytkb Tab] Ascorbic Acid [C-1000] 1,000 mg PO QDAY 05/02/17 Budesonide/Formoterol Fumarate 2 puff IH Q12H 05/02/17 [Symbicort 160-4.5 Mcg Inhaler] Metolazone [Zaroxolyn] 5 mg PO QD 05/02/17 [place]-3 Fatty Acids/Epa [Neurepa 1 2 gm PO BID 05/02/17 Gram Capsule] - SOCIAL HX Smoking History: quit greater than 1 year Alcohol Use: none Drug Use: none - FAMILY HX Family History: no significant history - VITAL SIGNS Vital Signs: Vital Signs Temp Pulse Resp BP Pulse Ox 98.8 F 72 22 137/65 96 05/16/17 17:10 05/16/17 17:10 05/16/17 17:10 05/16/17 17:10 05/16/17 17:10 - REVIEWED ASSESSMENTS Nursing Assessment Reviewed: Yes Vitals Reviewed: Yes Progress - Results/Orders Results/Orders: cbc, cmp, ua, pt/ptt/inr, bnp, cxr ordered in er - Progress Progress: Blood cultures taken in er, rocephin 1 gram ivpb started in er, case discussed with Dr. Gipson who accepts admission. Critical Care Note - Critical Care Note Total Time (mins): 0 ED Results Lab/Radiology - Lab Results Lab Results: Lab Results 05/16/17 05/16/17 05/16/17 18:30 18:30 18:30 WBC RBC Hgb Hct MCV MCH MCHC RDW Plt Count Neut % (Auto) Lymph % (Auto) [place] % (Auto) Eos % (Auto) Baso % (Auto) Neut # (Auto) Lymph # (Auto) [place] # (Auto) Eos # (Auto) Baso # (Auto) Reactive Lymphs % Reactive Lymphs # PT 26.2 Seconds H Seconds (9.4-11.6) INR 2.48 H (0.9-1.2) APTT 33.0 Seconds H Seconds (24.5-32.8) Sodium 140 mmol/L mmol/L (137-145) Potassium 3.4 mmol/L L mmol/L (3.5-5.1) Chloride 108 mmol/L H mmol/L (98-107) Carbon Dioxide 22 mmol/L mmol/L (22-30) BUN 28 mg/dL H mg/dL (9-20) Creatinine 1.00 mg/dL mg/dL (0.66-1.25) Estimated Creat Clear 54 Est GFR ( Amer) > 60 (60 - ) Est GFR (Non-Af Amer) > 60 (60 - ) Glucose 128 mg/dL H mg/dL (74-106) Calcium 9.4 mg/dL mg/dL (8.4-10.2) Total Bilirubin 0.4 mg/dL mg/dL (0.2-1.3) AST 29 U/L U/L (15-46) ALT 46 U/L U/L (13-69) Alkaline Phosphatase 83 U/L U/L (38-126) NT-Pro-B Natriuret Pep 1091.9 pg/mL H pg/mL (15.0-125.0) Total Protein 6.5 g/dL g/dL (6.3-8.2) Albumin 3.5 g/dL g/dL (3.5-5.0) 05/16/17 18:30 WBC 16.00 K/ul H K/ul (4.00-12.00) RBC 4.35 M/ul M/ul (3.90-5.20) Hgb 11.7 g/dL L g/dL (12.0-18.0) Hct 36.9 % L % (37.0-53.0) MCV 84.8 fl fl (80.0-100.0) MCH 26.9 pg L pg (28.0-34.0) MCHC 31.7 g/dL g/dL (30.0-36.0) RDW 17.9 % H % (11.3-14.3) Plt Count 253 K/mm3 K/mm3 (130-400) Neut % (Auto) 77.3 % % (39.0-79.0) Lymph % (Auto) 12.0 % L % (16.0-50.0) [place] % (Auto) 8.2 % % (0.0-11.0) Eos % (Auto) 0.6 % % (0.0-6.8) Baso % (Auto) 0.3 (0.0-1.5) Neut # (Auto) 12.3 # k/uL H # k/uL (1.4-7.7) Lymph # (Auto) 1.9 # k/uL # k/uL (0.6-4.0) [place] # (Auto) 1.3 # k/uL H # k/uL (0.0-0.9) Eos # (Auto) 0.1 # k/uL # k/uL (0.0-0.6) Baso # (Auto) 0.0 # k/uL # k/uL (0.0-0.5) Reactive Lymphs % 1.6 % % (0.0-5.0) Reactive Lymphs # 0.3 # k/uL # k/uL (0.0-0.8) PT INR APTT Sodium Potassium Chloride Carbon Dioxide BUN Creatinine Estimated Creat Clear Est GFR ( Amer) Est GFR (Non-Af Amer) Glucose Calcium Total Bilirubin AST ALT Alkaline Phosphatase NT-Pro-B Natriuret Pep Total Protein Albumin - Radiology Radiology Impressions: cxr shows right middle lobe infiltrate - Orders Orders: ED Orders Category Date Time Status Place IV Lock 1T Care 05/16/17 17:54 Active CHEST P.A.&LAT 2 VIEWS [RAD] Stat Exams 05/16/17 Completed KUB [ABDOMEN 1 VIEW] [RAD] Stat Exams 05/16/17 Completed BLOOD CULTURE Routine Lab 05/16/17 18:30 Received CBC/PLATELET/DIFF Routine Lab 05/16/17 18:30 Completed CMP Routine Lab 05/16/17 18:30 Completed NT-proBNP Routine Lab 05/16/17 18:30 Completed PT-INR Routine Lab 05/16/17 18:30 Completed PTT Routine Lab 05/16/17 18:30 Completed URINALYSIS Routine Lab 05/16/17 17:51 Ordered 0.9 % Sodium Chloride [Normal Saline] 500 ml Med 05/16/17 17:54 Discontinued IV NOW Budesonide [Pulmicort] Med 05/16/17 18:00 Ordered 0.5 mg NEB 1T Ipratropium/Albuterol Sulfate [Duoneb] Med 05/16/17 17:54 Discontinued 3 ml NEB NOW ONE cefTRIAXone SODIUM ADVANTAGE [Rocephin Advantage] 1 gm Med 05/16/17 19:48 Active Normal Saline Add-[place] [Sodium Chloride] 50 ml IV NOW Upper Respiratory Symptoms - EXAM General Appearance: alert, moderate distress EENT: eyes nml inspection, nml ENT inspection, lids & conjunct. nml, PERRL, ear nml Neck: normal inspection, thyroid normal Respiratory: no pain on inspiration, speaks full sentences, rales, rhonchi. No : accessory muscle use, stridor, no pleuritic chest pain, resp. fatigue Abdomen: non-tender, no organomegaly, nml bowel sounds, no distention, tenderness (bilateral lower quadrants) CVS: reg rate & rhythm, heart sounds normal, equal pulses Skin: color nml, no rash Extremities: non-tender, normal range of motion Neuro/Psych: oriented x3, neuro intact, mood/affect nml Discharge Clincal Impression: Pneumonia Qualifiers: Pneumonia type: due to unspecified organism Laterality: right Lung location: middle lobe of lung Qualified Code(s): J18.1 - Lobar pneumonia, unspecified organism Referrals: Cong Glass MD [Primary Care Provider] - 2 Days Comments: Pt. transferred to [facility] in stable condition Condition: Stable Disposition: 01 HOME, SELF-CARE Decision to Admit: NO Decision Time: 20:00
[2017-05-16] MEDS ORDERED: NITROGLYCERIN 0.4 MG TAB.SUBL SL PRN (20:41)
[2017-05-16] MEDS ORDERED: WARFARIN SODIUM 2.5 MG TABLET PO SCH (21:00)
--- NOTE | 2017-05-16 21:05 | History and Physical Report ---
History of Present Illnes - History of Present Illness Reason for Visit: dyspnea History of Present Illness: 72-year-old white male who stated he is been having some increasing dyspnea over the last 3 to 4 weeks. Patient was recently seen in the ED and in the clinic for evaluation. Patient was felt to be having some mild exacerbation of COPD and congestive heart failure. Patient states that despite therapy he has been getting worse especially over the last 24 hours. Patient has developed a productive sounding cough. Patient data the is unable to get any flameout. Patient denies any orthotic symptoms. Patient is not had a pedal edema. Patient denies any chest pain or chest pressure. Patient was subsequently evaluated in the ED again. Chest x-ray showed a right middle lobe pneumonia with a leukocytosis. It was felt that with the patient other chronic comorbidities to admit the patient to acute care further evaluation and treatment. Patient stated he is getting worn out by his cough. Has developed some left lower quadrant abdominal wall pain felt to be related to coughing. Patient stated he is not had any chills. Has had a mild low-grade fever at times. 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 Endocrine: Diabetes (type 2) Dermatology: Other (skin cancer) - Past Surgical History Past Surgical History: Arthroscopy, CABG, Other (spleenectomy) - Past Family History Mother Family History: CAD, Other (Alzheimers disease) Father Family History: Cancer (colon) Brother 1 Family History: CAD, (45yo) Brother 2 Family History: DM - Past Social History Smoke: No Occupation: Retired from the [employer] Alcohol: None Drugs: None Lives: With Family Domestic Violence: Negative - Health Maintenance Health Maintenance: Pneumococcal Vaccine (23 & 13). denies: Influenza Vaccine Influenza Vaccine: No, Hx of Guillian-Phillips Syn. w/in 6 wks. after influenza Pneumonia Vaccine: Yes Resuscitation Status: Resusciation Status Resuscitation Status Full Code - Unable to Obtain History Unable to Obtain: No Review of Systems - Review of Systems Constitutional: Weakness. negative: Fever, Chills, Sweats Eyes: negative: pain, vision change ENT: Nose Congestion (clear). negative: Ear Pain, Ear Discharge, Nose Pain, Mouth Pain, Mouth Swelling, Throat Swelling Respiratory: Cough, Dry (occcasionally productive), Shortness of Breath, SOB with Excertion, Wheezing. negative: Hemoptysis, Pleuritic Pain, Sputum Cardiovascular: negative: Chest Pain, Palpitations, Orthopnea, Edema Gastrointestinal: Abdominal Pain (LLQ, felt to be related to coughing), Diarrhea. negative: Nausea, Vomiting, Melena Genitourinary: negative: Dysuria, Frequency, Incontinence, Hematuria, Retention Musculoskeletal: Back Pain Skin: negative: Rash, Lesions, Jaundice Neurological: negative: Weakness, Change in Speech, Confusion - Medications/Allergies Allergies/Adverse Reactions: Allergies Allergy/AdvReac Type Severity Reaction Status Date / Time carbamazepine [From Tegretol] Allergy Verified 05/02/17 14:19 penicillin G Allergy Verified 05/02/17 14:19 phenytoin sodium Allergy Verified 05/02/17 14:19 [From Dilantin] phenytoin sodium extended Allergy Verified 05/02/17 14:19 [From Dilantin] Current Inpatient Medications: Current Inpatient Medications Albuterol/Ipratropium (Duoneb) 3 ml NEB Q4 [facility] Aspirin (Ecotrin) 81 mg PO DAILY [facility] Atorvastatin Calcium (Lipitor) 80 mg PO HS [facility] Budesonide (Pulmicort) 0.5 mg NEB 1T [facility] Last Admin: 05/16/17 18:05 Dose: 0.5 mg Carvedilol (Coreg) 25 mg PO BID [facility] Finasteride (Proscar) 5 mg PO HS [facility] Furosemide (Lasix) 40 mg PO SEE.INSTRUCTIONS [facility] Glimepiride (Amaryl) 4 mg PO 0730 [facility] Azithromycin 500 mg/ Sodium (Chloride) 250 mls @ 125 mls/hr IV Q24H [facility] Stop: 05/21/17 20:59 Ceftriaxone Sodium 1 gm/ (Sodium Chloride) 50 mls @ 100 mls/hr IV QD [facility] Insulin Detemir (Levemir Flex-Pen) 25 unit SQ HS [facility] Insulin Detemir (Levemir Flex-Pen) 10 unit SQ AM [facility] Isosorbide Mononitrate (Imdur) 90 mg PO DAILY [facility] Losartan Potassium (Cozaar) 25 mg PO DAILY [facility] Metolazone (Zaroxolyn) 5 mg PO QD [facility] Multivitamins (Tab-A-Murray) 1 each PO DAILY [facility] Nitroglycerin (Nitroquick) 0.4 mg SL DIRECTED PRN PRN Reason: Chest Pain Pantoprazole Sodium (Protonix) 40 mg PO 0700 [facility] Spironolactone (Aldactone) 12.5 mg PO QDAY [facility] Tamsulosin HCl (Flomax) 0.4 mg PO DAILY [facility] Tramadol HCl (Ultram) 50 mg PO Q12 [facility] Warfarin Sodium (Coumadin) 2.5 mg PO D [facility] Exam - Exam Vital Signs: Vital Signs (72 hours) 05/16/17 20:35 Temperature 97.6 F Pulse Rate [ 54 L Pulse ox] Respiratory 16 Rate Blood Pressure 111/47 [Right Arm] O2 Sat by Pulse 96 Oximetry General: Alert, Oriented to Person, Oriented to Place, Oriented to Time, Cooperative, Moderate distress HEENT: Atraumatic, PERRLA, EOMI, Mouth Mucous membr. moist/[place], Nose Mucous membr. moist/[place], Edentulous (dentures), Hearing Grossly Normal Neck: Normal Range of Motion Carotids: WNL Thyroid: WNL Lungs: Speaks full Sentences, Respiratory Distress (mild), Wheezes (L>R), Rales (course bilateral), Rhonchi (RLL area). No: Prolonged Expiration Cardiovascular: Regular rate, Normal S1, Normal S2, No murmurs. No: Murmur Abdomen: Normal bowel sounds, Soft, No hepatospenomegaly, No masses, Other ( tenderness to the abd wall over the RLQ area) Integumentary: Normal, [place], Warm, Dry Extremities: No clubbing, No cyanosis, No edema, Normal pulses, No tenderness/ swelling Neurological: Normal gait, Normal speech, Strength Equal Bilat, Normal tone, Sensation intact, Cranial nerves 3-12 NL, Reflexes 2+ Psych/Mental Status: Mental status NL, Mood NL, Appropriate Affect, Intact Judgment Assessment/Plan - Assessment/Plan (1) Pneumonia Status: Acute Current Visit: Yes Qualifiers: Pneumonia type: due to unspecified organism Laterality: right Lung location: middle lobe of lung Qualified Code(s): J18.1 - Lobar pneumonia, unspecified organism (2) Chest pain Status: Acute Current Visit: No Qualifiers: Chest pain type: chest pain on breathing Qualified Code(s): R07.1 - Chest pain on breathing (3) CAD (coronary artery disease) Status: Chronic Current Visit: No Qualifiers: Coronary Disease-Associated Artery/Lesion type: bypass graft [place] vs. 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
[2017-05-16 21:06] VITALS: BMI 29.2
[2017-05-16] MEDS: IPRATROPIUM/ALBUTEROL SULFATE 3 ML AMPUL.NEB NEB SCH (21:20)
[2017-05-16] MEDS: PANTOPRAZOLE SODIUM 40 MG TABLET PO SCH (21:20)
[2017-05-16] MEDS ORDERED: 0.9 % SODIUM CHLORIDE 250 ML IV ONE (21:24)
[2017-05-16] MEDS ORDERED: CARVEDILOL 12.5 MG TABLET PO ONE (21:25)
[2017-05-16] MEDS ORDERED: AZITHROMYCIN 500 MG VIAL IV ONE (21:25)
[2017-05-16] MEDS: GLIMEPIRIDE 2 MG TABLET PO SCH (21:30)
[2017-05-16] MEDS: LOSARTAN POTASSIUM 50 MG TABLET PO SCH (21:31)
[2017-05-16] MEDS: MULTIVITAMIN 1 EACH TABLET PO SCH (21:32)
[2017-05-16] MEDS: cefTRIAXone SODIUM 1 GM in 0.9 % SODIUM CHLORIDE 50 ML IV SCH (21:32)
[2017-05-16] MEDS: ATORVASTATIN CALCIUM 80 MG TABLET PO SCH (21:39)
[2017-05-16] MEDS: METOLAZONE 2.5 MG TABLET PO SCH (21:39)
[2017-05-16] MEDS: FINASTERIDE 5 MG TABLET PO SCH (21:39)
[2017-05-16] MEDS: traMADol HCL 50 MG TABLET PO SCH (21:39)
[2017-05-16] MEDS: INSULIN DETEMIR 100 UNIT/ML 3ML PEN.INJCTR SQ SCH (21:40)
[2017-05-16] MEDS: CARVEDILOL 25 MG TABLET PO SCH (21:40)
[2017-05-16] MEDS: AZITHROMYCIN 500 MG in 0.9 % SODIUM CHLORIDE 250 ML IV SCH (21:42)
[2017-05-17] MEDS ORDERED: CARVEDILOL 12.5 MG TABLET PO ONE ×2 (00:17→13:21)
[2017-05-17] MEDS: IPRATROPIUM/ALBUTEROL SULFATE 3 ML AMPUL.NEB NEB SCH ×6 (01:00→21:03)
[2017-05-17] MEDS: PANTOPRAZOLE SODIUM 40 MG TABLET PO SCH (05:28)
[2017-05-17 06:30] LABS: BASOPHILS % 0.4 (0.0-1.5); EOSINOPHILS % 1.1 % (0.0-6.8); MEAN CORPUSCULAR VOLUME 84.5 fl (80.0-100.0); MONOCYTES % 8.4 % (0.0-11.0); NEUTROPHILS # 8.7 # k/uL (1.4-7.7)
[2017-05-17 06:39] LABS: APPEARANCE,URINE CLEAR (CLEAR); COLOR,URINE YELLOW (YELLOW); OCCULT BLOOD,URINE TRACE-INTACT (NEGATIVE); PH URINE 5.5 (5.0 - 8.0); UROBILINOGEN URINE 0.2 Eu (0.2-1.0)
[2017-05-17 06:39] LABS: eGFR (African) > 60; eGFR (Non-African) > 60
[2017-05-17] MEDS: SPIRONOLACTONE 25 MG TABLET PO SCH (07:29)
[2017-05-17] MEDS: GLIMEPIRIDE 2 MG TABLET PO SCH (07:29)
[2017-05-17] MEDS: CARVEDILOL 25 MG TABLET PO SCH ×2 (07:30→20:09)
[2017-05-17] MEDS: LOSARTAN POTASSIUM 50 MG TABLET PO SCH (07:32)
[2017-05-17] MEDS: ISOSORBIDE MONONITRATE 30 MG TAB.ER.24H PO SCH (07:34)
[2017-05-17] MEDS: ASPIRIN EC 81 MG TABLET.DR PO SCH (07:34)
[2017-05-17] MEDS: MULTIVITAMIN 1 EACH TABLET PO SCH (07:35)
[2017-05-17] MEDS: traMADol HCL 50 MG TABLET PO SCH ×2 (07:35→20:09)
[2017-05-17] MEDS: TAMSULOSIN HCL 0.4 MG CAP.ER.24H PO SCH (07:36)
[2017-05-17] MEDS: WARFARIN SODIUM 2.5 MG TABLET PO SCH (08:42)
[2017-05-17] MEDS: INSULIN DETEMIR 100 UNIT/ML 3ML PEN.INJCTR SQ SCH ×2 (08:43→20:12)
--- NOTE | 2017-05-17 16:55 | Diagnostic Imaging Report ---
[facility]/MED SURG [facility] [address] [facility].[address] [address] Report Submission Date: May 17, 2017 3:58:02 PM CDT Patient Study Name: KIMBER JOSEPH Date: May 17, 2017 2:53:56 PM CDT MRN: [id number] Modality Type: CT\SR Gender: M Description: CT ABD & PELVIS W/ CON : 41 Institution: [facility] Physician: [facility] WING/MED SURG CT abdomen and pelvis with contrast Date of study: May 17, 2017. CLINICAL HISTORY: RLQ PAIN (Hx) / RLQ PAIN (DICOM Hx) TECHNIQUE: 5 mm contiguous axial images of the abdomen and pelvis with IV contrast. With ; WATER/OMNI 300 & 87 CC OMNIPAQUE FINDINGS: The lung bases are clear aside from left basilar dependent lung densities. Abdomen: Dense calcified atherosclerotic plaque is present in the common hepatic artery and left hepatic artery. The liver somewhat enlarged. The pancreas is normal. There are multiple splenules in the left upper abdomen. The gallbladder is unremarkable. The kidneys enhance appropriately and symmetrically. Bilateral perinephric scarring is noted. There are left renal lower pole and upper pole cortical cysts. The aorta is normal in caliber with diffuse atherosclerotic calcifications evident. The small bowel is nondistended. Slight infiltration of the central abdominal mesenteric fat is noted. Pelvis: Diverticulosis of the descending and sigmoid colon is present. There is wall thickening of the sigmoid colon in the lower and left pelvis consistent with colitis. An area of inflammatory stranding along the medial aspect of the sigmoid colon in the central pelvis may also represent a component of acute diverticulitis. There is wall thickening of the distal and terminal ileum in the right pelvis that may represent a reactive ileitis or underlying small bowel inflammation. The appendix is not identified. The distal ureters and bladder are normal. There is no evidence of free air or free fluid. The rectum is filled with stool. The remaining pelvic structures are within normal limits and the bones of the pelvis are intact. Fat containing bilateral inguinal hernias are noted. There is artifact associated with L5/S1 posterior transpedicular fusion. Slight grade I L45 anterior spondylolisthesis is present as well as degenerative lumbar spondylosis. IMPRESSION: Descending and sigmoid colon diverticulosis with wall thickening of the sigmoid colon in the lower and left pelvis consistent with colitis. An area of inflammation and inflammatory stranding along the medial aspect of the sigmoid colon in the central pelvis may also represent a component of acute diverticulitis. Thickening of the distal and terminal ileum of the right pelvis that may represent a reactive ileitis or underlying small bowel inflammation. Appendix not identified. Electronically signed on May 17, 2017 3:58:02 PM CDT by: Kayla PARIKH
[2017-05-17] MEDS ORDERED: 0.9 % SODIUM CHLORIDE 50 ML IV ONE (20:00)
[2017-05-17] MEDS ORDERED: cefTRIAXone SODIUM 1 GM VIAL ONE (20:00)
[2017-05-17] MEDS ORDERED: SALINE FLUSH 10 ML DISP.SYRIN IVF ONE ×2 (20:00→20:54)
[2017-05-17] MEDS: METOLAZONE 2.5 MG TABLET PO SCH (20:08)
[2017-05-17] MEDS: FINASTERIDE 5 MG TABLET PO SCH (20:08)
[2017-05-17] MEDS: ATORVASTATIN CALCIUM 80 MG TABLET PO SCH (20:09)
[2017-05-17] MEDS: cefTRIAXone SODIUM 1 GM in 0.9 % SODIUM CHLORIDE 50 ML IV SCH (20:15)
[2017-05-17] MEDS ORDERED: 0.9 % SODIUM CHLORIDE 250 ML IV ONE (20:54)
[2017-05-17] MEDS ORDERED: AZITHROMYCIN 500 MG VIAL IV ONE (20:54)
[2017-05-17] MEDS: AZITHROMYCIN 500 MG in 0.9 % SODIUM CHLORIDE 250 ML IV SCH (21:00)
[2017-05-18] MEDS ORDERED: CARVEDILOL 12.5 MG TABLET PO ONE ×2 (00:21→15:25)
[2017-05-18] MEDS: IPRATROPIUM/ALBUTEROL SULFATE 3 ML AMPUL.NEB NEB SCH ×6 (01:14→21:13)
[2017-05-18] MEDS: PANTOPRAZOLE SODIUM 40 MG TABLET PO SCH (06:02)
[2017-05-18 06:19] LABS: BASOPHILS % 0.6 (0.0-1.5); EOSINOPHILS % 2.7 % (0.0-6.8); MEAN CORPUSCULAR HEMOGLOBIN 27.1 pg (28.0-34.0); MEAN CORPUSCULAR VOLUME 85.6 fl (80.0-100.0); MONOCYTES % 7.9 % (0.0-11.0); NEUTROPHILS # 7.4 # k/uL (1.4-7.7)
[2017-05-18 06:32] LABS: eGFR (African) > 60; eGFR (Non-African) > 60
[2017-05-18] MEDS: GLIMEPIRIDE 2 MG TABLET PO SCH (07:35)
[2017-05-18] MEDS: SPIRONOLACTONE 25 MG TABLET PO SCH (08:01)
[2017-05-18] MEDS ORDERED: metroNIDAZOLE/SODIUM CHLORIDE 100 ML IV ONE ×3 (08:04→21:18)
[2017-05-18] MEDS ORDERED: SALINE FLUSH 10 ML DISP.SYRIN IVF ONE ×2 (08:05→13:02)
[2017-05-18] MEDS: metroNIDAZOLE/SODIUM CHLORIDE 500 MG in PREMIX BAG 1 BAG IV SCH ×3 (08:06→22:00)
[2017-05-18] MEDS: WARFARIN SODIUM 2.5 MG TABLET PO SCH (08:13)
[2017-05-18] MEDS: CARVEDILOL 25 MG TABLET PO SCH ×2 (08:19→19:31)
[2017-05-18] MEDS: LOSARTAN POTASSIUM 50 MG TABLET PO SCH (08:20)
[2017-05-18] MEDS: ASPIRIN EC 81 MG TABLET.DR PO SCH (08:21)
[2017-05-18] MEDS: TAMSULOSIN HCL 0.4 MG CAP.ER.24H PO SCH (08:21)
[2017-05-18] MEDS: ISOSORBIDE MONONITRATE 30 MG TAB.ER.24H PO SCH (08:21)
[2017-05-18] MEDS: INSULIN DETEMIR 100 UNIT/ML 3ML PEN.INJCTR SQ SCH ×2 (08:22→19:33)
[2017-05-18] MEDS: MULTIVITAMIN 1 EACH TABLET PO SCH (08:26)
[2017-05-18] MEDS: traMADol HCL 50 MG TABLET PO SCH ×2 (08:29→19:31)
[2017-05-18] MEDS: INSULIN REGULAR, HUMAN 100 UNIT/ML 3ML VIAL SQ SCH (17:14)
--- NOTE | 2017-05-18 19:06 | Inpatient Progress Note ---
Subjective - Required Recertification Statement I anticipate X number of days because-include discharge plan: 1 day - Review of Systems Events since last encounter: Patient states that his cough seems to be getting some better. Is still having s difficult time getting phlegm up. No fever or chills. Wheezing seems to be some better. He is not sure if HFN treatment seems to be helping. No chest pain or pressure. No swelling in feet. No bleeding problems. Is still having some pain in the RLQ area. Has had two normal BM today. No blood noted. No nausea noted, appetite is still poor. General: Denies: Chills Pulmonary: Dyspnea, Cough. Denies: Pleuritic Chest Pain Cardiovascular: Denies: Chest Pain, Palpitations, Orthopnea, Edema Gastrointestinal: Abdominal Pain. Denies: Nausea, Vomiting, Diarrhea, Constipation, Melena, Hematochezia Objective - Exam Vitals and I&O: Vital Signs Temp 97.4 F L 05/18/17 17:38 Pulse 64 05/18/17 17:38 Resp 18 05/18/17 17:38 BP 137/76 05/18/17 17:38 Pulse Ox 97 05/18/17 17:38 Intake & Output 05/17/17 05/18/17 05/18/17 23:59 11:59 23:59 Intake Total 1440 360 480 Output Total 700 975 Balance 740 -615 480 Intake: IV 300 Left Hand 300 Oral 1140 360 480 Output: Urine 700 975 Other: Voiding Method Toilet Urinal # Voids 3 # Bowel Movements 2 General: Alert, Oriented to Person, Oriented to Place, Oriented to Time, Cooperative, No acute distress Neck: Supple, No JVD Lungs: Speaks full Sentences, Wheezes (mild with forced expiration.), Rhonchi ( course bilateral, R>L). No: Rales Cardiovascular: Regular rate, Normal S1, Normal S2 Abdomen: Normal bowel sounds, Soft, Other (tenderness to the LLQ area. No guarding or rebound tenderness noted.). No: Distended Extremities: No: No clubbing, No cyanosis, No edema Skin: No: Normal, [place], Warm, Dry Neurological: Normal gait, Normal speech, Strength Equal Bilat Psych/Mental Status: Mental status NL, Mood NL, Appropriate Affect - Results Results: Laboratory Results WBC 10.90 K/ul (4.00-12.00) 05/18/17 06:15 RBC 4.37 M/ul (3.90-5.20) 05/18/17 06:15 Hgb 11.9 g/dL (12.0-18.0) L 05/18/17 06:15 Hct 37.4 % (37.0-53.0) 05/18/17 06:15 MCV 85.6 fl (80.0-100.0) 05/18/17 06:15 MCH 27.1 pg (28.0-34.0) L 05/18/17 06:15 MCHC 31.7 g/dL (30.0-36.0) 05/18/17 06:15 RDW 17.8 % (11.3-14.3) H 05/18/17 06:15 Plt Count 241 K/mm3 (130-400) 05/18/17 06:15 Neut % (Auto) 67.5 % (39.0-79.0) 05/18/17 06:15 Lymph % (Auto) 19.3 % (16.0-50.0) 05/18/17 06:15 [place] % (Auto) 7.9 % (0.0-11.0) 05/18/17 06:15 Eos % (Auto) 2.7 % (0.0-6.8) 05/18/17 06:15 Baso % (Auto) 0.6 (0.0-1.5) 05/18/17 06:15 Neut # (Auto) 7.4 # k/uL (1.4-7.7) 05/18/17 06:15 Lymph # (Auto) 2.1 # k/uL (0.6-4.0) 05/18/17 06:15 [place] # (Auto) 0.9 # k/uL (0.0-0.9) 05/18/17 06:15 Eos # (Auto) 0.3 # k/uL (0.0-0.6) 05/18/17 06:15 Baso # (Auto) 0.1 # k/uL (0.0-0.5) 05/18/17 06:15 Reactive Lymphs % 2.0 % (0.0-5.0) 05/18/17 06:15 Reactive Lymphs # 0.2 # k/uL (0.0-0.8) 05/18/17 06:15 PT 26.2 Seconds (9.4-11.6) H 05/16/17 18:30 INR 2.48 (0.9-1.2) H 05/16/17 18:30 APTT 33.0 Seconds (24.5-32.8) H 05/16/17 18:30 Sodium 139 mmol/L (137-145) 05/18/17 06:15 Potassium 3.7 mmol/L (3.5-5.1) 05/18/17 06:15 Chloride 104 mmol/L (98-107) 05/18/17 06:15 Carbon Dioxide 26 mmol/L (22-30) 05/18/17 06:15 BUN 20 mg/dL (9-20) 05/18/17 06:15 Creatinine 1.00 mg/dL (0.66-1.25) 05/18/17 06:15 Estimated Creat Clear 66 05/18/17 06:15 Est GFR ( Amer) > 60 (60-) 05/18/17 06:15 Est GFR (Non-Af Amer) > 60 (60-) 05/18/17 06:15 Glucose 220 mg/dL (74-106) H 05/18/17 06:15 Calcium 9.7 mg/dL (8.4-10.2) 05/18/17 06:15 Total Bilirubin 0.3 mg/dL (0.2-1.3) 05/18/17 06:15 AST 23 U/L (15-46) 05/18/17 06:15 ALT 44 U/L (13-69) 05/18/17 06:15 Alkaline Phosphatase 77 U/L (38-126) 05/18/17 06:15 NT-Pro-B Natriuret Pep 1091.9 pg/mL (15.0-125.0) H 05/16/17 18:30 Total Protein 6.4 g/dL (6.3-8.2) 05/18/17 06:15 Albumin 3.4 g/dL (3.5-5.0) L 05/18/17 06:15 Urine Color Yellow (YELLOW) 05/16/17 18:54 Urine Appearance Clear (CLEAR) 05/16/17 18:54 Urine pH 5.5 (5.0 - 8.0) 05/16/17 18:54 Ur Specific [place] 1.015 (1.010-1.030) 05/16/17 18:54 Urine Protein 1+ mg/dL (NEGATIVE) H 05/16/17 18:54 Urine Ketones Negative mg/dL (NEGATIVE) 05/16/17 18:54 Urine Occult Blood Trace-intact (NEGATIVE) H 05/16/17 18:54 Urine Nitrite Negative (NEGATIVE) 05/16/17 18:54 Urine Bilirubin Negative (NEGATIVE) 05/16/17 18:54 Urine Urobilinogen 0.2 Eu (0.2-1.0) 05/16/17 18:54 Ur Leukocyte Esterase Negative (NEGATIVE) 05/16/17 18:54 Urine Glucose Negative mg/dL (NEGATIVE) 05/16/17 18:54 Assessment/Plan - Assessment/Plan (1) Pneumonia Status: Acute Current Visit: Yes Qualifiers: Pneumonia type: due to unspecified organism Laterality: right Lung location: middle lobe of lung Qualified Code(s): J18.1 - Lobar pneumonia, unspecified organism Assessment: cough seems to be improving, WBC has improved, SAO2 is stable. Will conitnue with present treatment. WIll repeat CXR in AM. (2) Chest pain Status: Acute Current Visit: No Qualifiers: Chest pain type: chest pain on breathing Qualified Code(s): R07.1 - Chest pain on breathing (3) CAD (coronary artery disease) Status: Chronic Current Visit: No Qualifiers: Coronary Disease-Associated Artery/Lesion type: bypass graft [place] vs. 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 Is on coumadin. Will recheck INR in the AM due to antibiotic therapy. (8) Diverticulitis Status: Acute Current Visit: Yes Plan: Patients' WBC count is improving, with results of CT scan showing possible diverticulitis and patient is still having some abd pain, I will start some metronidizole.
[2017-05-18] MEDS ORDERED: cefTRIAXone SODIUM 1 GM VIAL ONE (19:09)
[2017-05-18] MEDS ORDERED: 0.9 % SODIUM CHLORIDE 50 ML IV ONE (19:10)
--- NOTE | 2017-05-18 19:20 | Inpatient Progress Note ---
Subjective - Required Recertification Statement I anticipate X number of days because-include discharge plan: 2 days - Review of Systems Events since last encounter: Patient states he continued to have some mild shortness of breath with exertion. Patient called with about the same. Patient states that is just productive but is not able to get up completely out. Patient is not had any fever or chills that he is aware. Patient continued to have some mild left lower quadrant abdominal pain. Patient denies any nausea vomiting. General: Denies: Chills Pulmonary: Dyspnea, Cough. Denies: Pleuritic Chest Pain Cardiovascular: Denies: Chest Pain, Palpitations Gastrointestinal: Abdominal Pain. Denies: Nausea, Vomiting, Diarrhea, Constipation, Melena, Hematochezia Objective - Exam Vitals and I&O: Vital Signs Temp 97.4 F L 05/18/17 17:38 Pulse 64 05/18/17 17:38 Resp 18 05/18/17 17:38 BP 137/76 05/18/17 17:38 Pulse Ox 97 05/18/17 17:38 Intake & Output 05/17/17 05/18/17 05/18/17 23:59 11:59 23:59 Intake Total 1440 360 480 Output Total 700 975 Balance 740 -615 480 Intake: IV 300 Left Hand 300 Oral 1140 360 480 Output: Urine 700 975 Other: Voiding Method Toilet Urinal # Voids 3 # Bowel Movements 2 General: Alert, Oriented to Person, Oriented to Place, Oriented to Time, Cooperative Neck: Supple, No JVD, No thyromegaly Lungs: Normal air movement, Speaks full Sentences, Respiratory Distress (mild), Wheezes, Rhonchi. No: Strid[place] Cardiovascular: Regular rate, Normal S1, Normal S2 Abdomen: Normal bowel sounds, Soft, No hepatospenomegaly, Other (tenderness in the RLQ) Extremities: No clubbing, No cyanosis, No edema Skin: Normal, [place], Warm, Dry, Pale - Results Results: Laboratory Results WBC 10.90 K/ul (4.00-12.00) 05/18/17 06:15 RBC 4.37 M/ul (3.90-5.20) 05/18/17 06:15 Hgb 11.9 g/dL (12.0-18.0) L 05/18/17 06:15 Hct 37.4 % (37.0-53.0) 05/18/17 06:15 MCV 85.6 fl (80.0-100.0) 05/18/17 06:15 MCH 27.1 pg (28.0-34.0) L 05/18/17 06:15 MCHC 31.7 g/dL (30.0-36.0) 05/18/17 06:15 RDW 17.8 % (11.3-14.3) H 05/18/17 06:15 Plt Count 241 K/mm3 (130-400) 05/18/17 06:15 Neut % (Auto) 67.5 % (39.0-79.0) 05/18/17 06:15 Lymph % (Auto) 19.3 % (16.0-50.0) 05/18/17 06:15 [place] % (Auto) 7.9 % (0.0-11.0) 05/18/17 06:15 Eos % (Auto) 2.7 % (0.0-6.8) 05/18/17 06:15 Baso % (Auto) 0.6 (0.0-1.5) 05/18/17 06:15 Neut # (Auto) 7.4 # k/uL (1.4-7.7) 05/18/17 06:15 Lymph # (Auto) 2.1 # k/uL (0.6-4.0) 05/18/17 06:15 [place] # (Auto) 0.9 # k/uL (0.0-0.9) 05/18/17 06:15 Eos # (Auto) 0.3 # k/uL (0.0-0.6) 05/18/17 06:15 Baso # (Auto) 0.1 # k/uL (0.0-0.5) 05/18/17 06:15 Reactive Lymphs % 2.0 % (0.0-5.0) 05/18/17 06:15 Reactive Lymphs # 0.2 # k/uL (0.0-0.8) 05/18/17 06:15 PT 26.2 Seconds (9.4-11.6) H 05/16/17 18:30 INR 2.48 (0.9-1.2) H 05/16/17 18:30 APTT 33.0 Seconds (24.5-32.8) H 05/16/17 18:30 Sodium 139 mmol/L (137-145) 05/18/17 06:15 Potassium 3.7 mmol/L (3.5-5.1) 05/18/17 06:15 Chloride 104 mmol/L (98-107) 05/18/17 06:15 Carbon Dioxide 26 mmol/L (22-30) 05/18/17 06:15 BUN 20 mg/dL (9-20) 05/18/17 06:15 Creatinine 1.00 mg/dL (0.66-1.25) 05/18/17 06:15 Estimated Creat Clear 66 05/18/17 06:15 Est GFR ( Amer) > 60 (60-) 05/18/17 06:15 Est GFR (Non-Af Amer) > 60 (60-) 05/18/17 06:15 Glucose 220 mg/dL (74-106) H 05/18/17 06:15 Calcium 9.7 mg/dL (8.4-10.2) 05/18/17 06:15 Total Bilirubin 0.3 mg/dL (0.2-1.3) 05/18/17 06:15 AST 23 U/L (15-46) 05/18/17 06:15 ALT 44 U/L (13-69) 05/18/17 06:15 Alkaline Phosphatase 77 U/L (38-126) 05/18/17 06:15 NT-Pro-B Natriuret Pep 1091.9 pg/mL (15.0-125.0) H 05/16/17 18:30 Total Protein 6.4 g/dL (6.3-8.2) 05/18/17 06:15 Albumin 3.4 g/dL (3.5-5.0) L 05/18/17 06:15 Urine Color Yellow (YELLOW) 05/16/17 18:54 Urine Appearance Clear (CLEAR) 05/16/17 18:54 Urine pH 5.5 (5.0 - 8.0) 05/16/17 18:54 Ur Specific [place] 1.015 (1.010-1.030) 05/16/17 18:54 Urine Protein 1+ mg/dL (NEGATIVE) H 05/16/17 18:54 Urine Ketones Negative mg/dL (NEGATIVE) 05/16/17 18:54 Urine Occult Blood Trace-intact (NEGATIVE) H 05/16/17 18:54 Urine Nitrite Negative (NEGATIVE) 05/16/17 18:54 Urine Bilirubin Negative (NEGATIVE) 05/16/17 18:54 Urine Urobilinogen 0.2 Eu (0.2-1.0) 05/16/17 18:54 Ur Leukocyte Esterase Negative (NEGATIVE) 05/16/17 18:54 Urine Glucose Negative mg/dL (NEGATIVE) 05/16/17 18:54 Assessment/Plan - Assessment/Plan (1) Pneumonia Status: Acute Current Visit: Yes Qualifiers: Pneumonia type: due to unspecified organism Laterality: right Lung location: middle lobe of lung Qualified Code(s): J18.1 - Lobar pneumonia, unspecified organism Assessment: WBC count is improved. Patient states that his breathing is about the same to some better. (2) CAD (coronary artery disease) Status: Chronic Current Visit: No Qualifiers: Coronary Disease-Associated Artery/Lesion type: bypass graft [place] vs. transplanted heart: [place] heart Associated angina: without angina Qualified Code(s): I25.810 - Atherosclerosis of coronary artery bypass graft(s) without angina pectoris Assessment: stable (3) Congestive heart failure (CHF) Status: Chronic Current Visit: No Qualifiers: Assessment: stable (4) Diabetes mellitus Status: Chronic Current Visit: No Qualifiers: Diabetes mellitus type: type 2 Diabetes mellitus complication status: with unspecified complications Diabetes mellitus mcc insulin use: with manager intermediate use Qualified Code(s): E11.8 - Type 2 diabetes mellitus with unspecified complications; 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 No guarding or rebound tenderness noted. Will get CT scan to look for possible diverticulitis.
[2017-05-18] MEDS: cefTRIAXone SODIUM 1 GM in 0.9 % SODIUM CHLORIDE 50 ML IV SCH (19:29)
[2017-05-18] MEDS: ATORVASTATIN CALCIUM 80 MG TABLET PO SCH (19:30)
[2017-05-18] MEDS: METOLAZONE 2.5 MG TABLET PO SCH (19:31)
[2017-05-18] MEDS: FINASTERIDE 5 MG TABLET PO SCH (19:31)
[2017-05-18] MEDS: BUDESONIDE 0.5MG/2ML AMPUL.NEB NEB SCH (21:12)
[2017-05-18] MEDS: AZITHROMYCIN 500 MG in 0.9 % SODIUM CHLORIDE 250 ML IV SCH (23:30)
[2017-05-19] MEDS ORDERED: AZITHROMYCIN 500 MG VIAL IV ONE (00:37)
[2017-05-19] MEDS ORDERED: 0.9 % SODIUM CHLORIDE 250 ML IV ONE (00:37)
[2017-05-19] MEDS: IPRATROPIUM/ALBUTEROL SULFATE 3 ML AMPUL.NEB NEB SCH ×6 (01:05→20:51)
[2017-05-19] MEDS: BUDESONIDE 0.5MG/2ML AMPUL.NEB NEB SCH ×3 (01:07→22:03)
[2017-05-19] MEDS ORDERED: metroNIDAZOLE/SODIUM CHLORIDE 100 ML IV ONE ×3 (05:03→21:40)
[2017-05-19] MEDS ORDERED: CARVEDILOL 12.5 MG TABLET PO ONE (05:04)
[2017-05-19] MEDS: metroNIDAZOLE/SODIUM CHLORIDE 500 MG in PREMIX BAG 1 BAG IV SCH ×3 (06:00→21:42)
[2017-05-19 06:19] LABS: BASOPHILS % 0.5 (0.0-1.5); EOSINOPHILS % 3.2 % (0.0-6.8); MEAN CORPUSCULAR VOLUME 85.6 fl (80.0-100.0); MONOCYTES % 7.2 % (0.0-11.0)
[2017-05-19] MEDS: PANTOPRAZOLE SODIUM 40 MG TABLET PO SCH (06:31)
[2017-05-19] MEDS ORDERED: SALINE FLUSH 10 ML DISP.SYRIN IVF ONE ×5 (06:57→20:55)
[2017-05-19] MEDS: INSULIN REGULAR, HUMAN 100 UNIT/ML 3ML VIAL SQ SCH ×3 (07:45→16:21)
[2017-05-19 08:03] LABS: eGFR (African) > 60; eGFR (Non-African) > 60
[2017-05-19] MEDS ORDERED: POTASSIUM CHLORIDE 20 MEQ TABLET.ER PO ONE (08:09)
[2017-05-19] MEDS: GLIMEPIRIDE 2 MG TABLET PO SCH (08:21)
[2017-05-19] MEDS: SPIRONOLACTONE 25 MG TABLET PO SCH (08:23)
[2017-05-19] MEDS: CARVEDILOL 25 MG TABLET PO SCH (08:23)
[2017-05-19] MEDS: LOSARTAN POTASSIUM 50 MG TABLET PO SCH (08:26)
[2017-05-19] MEDS: ASPIRIN EC 81 MG TABLET.DR PO SCH (08:27)
[2017-05-19] MEDS: TAMSULOSIN HCL 0.4 MG CAP.ER.24H PO SCH (08:28)
[2017-05-19] MEDS: ISOSORBIDE MONONITRATE 30 MG TAB.ER.24H PO SCH (08:29)
[2017-05-19] MEDS: MULTIVITAMIN 1 EACH TABLET PO SCH (08:32)
[2017-05-19] MEDS: traMADol HCL 50 MG TABLET PO SCH ×2 (08:38→21:18)
[2017-05-19] MEDS: WARFARIN SODIUM 2.5 MG TABLET PO SCH (08:39)
[2017-05-19] MEDS: INSULIN DETEMIR 100 UNIT/ML 3ML PEN.INJCTR SQ SCH ×2 (08:40→21:05)
[2017-05-19] MEDS: [UNRECOGNIZED DRUG - OTHER] PO SCH ×2 (11:35→21:02)
[2017-05-19] MEDS: ACIDOPHILUS PO SCH ×2 (11:35→21:02)
--- NOTE | 2017-05-19 12:50 | Inpatient Progress Note ---
Subjective - Required Recertification Statement I anticipate X number of days because-include discharge plan: 2 - Review of Systems Subjective: Patient worried about his cough. Feels about like he did when he came in. Objective - Exam Vitals and I&O: Vital Signs Temp 97.2 F L 05/19/17 10:00 Pulse 68 05/19/17 10:00 Resp 22 05/19/17 10:00 BP 124/67 05/19/17 10:00 Pulse Ox 96 05/19/17 10:00 Intake & Output 05/18/17 05/19/17 05/19/17 23:59 11:59 23:59 Intake Total 480 360 Balance 480 360 Weight 72.575 kg Intake: Oral 480 360 Other: Voiding Method Urinal Urinal # Voids 1 # Bowel Movements 2 General: Alert, Oriented to Person, Oriented to Place, Oriented to Time, Cooperative, No acute distress Lungs: Rhonchi Cardiovascular: Regular rate Abdomen: Normal bowel sounds, Soft. No: No tenderness (Tender BLQ) - Results Results: Laboratory Results WBC 11.40 K/ul (4.00-12.00) 05/19/17 06:10 RBC 4.24 M/ul (3.90-5.20) 05/19/17 06:10 Hgb 11.5 g/dL (12.0-18.0) L 05/19/17 06:10 Hct 36.3 % (37.0-53.0) L 05/19/17 06:10 MCV 85.6 fl (80.0-100.0) 05/19/17 06:10 MCH 27.0 pg (28.0-34.0) L 05/19/17 06:10 MCHC 31.6 g/dL (30.0-36.0) 05/19/17 06:10 RDW 17.5 % (11.3-14.3) H 05/19/17 06:10 Plt Count 220 K/mm3 (130-400) 05/19/17 06:10 Neut % (Auto) 69.7 % (39.0-79.0) 05/19/17 06:10 Lymph % (Auto) 18.0 % (16.0-50.0) 05/19/17 06:10 [place] % (Auto) 7.2 % (0.0-11.0) 05/19/17 06:10 Eos % (Auto) 3.2 % (0.0-6.8) 05/19/17 06:10 Baso % (Auto) 0.5 (0.0-1.5) 05/19/17 06:10 Neut # (Auto) 8.0 # k/uL (1.4-7.7) H 05/19/17 06:10 Lymph # (Auto) 2.1 # k/uL (0.6-4.0) 05/19/17 06:10 [place] # (Auto) 0.8 # k/uL (0.0-0.9) 05/19/17 06:10 Eos # (Auto) 0.4 # k/uL (0.0-0.6) 05/19/17 06:10 Baso # (Auto) 0.0 # k/uL (0.0-0.5) 05/19/17 06:10 Reactive Lymphs % 1.5 % (0.0-5.0) 05/19/17 06:10 Reactive Lymphs # 0.2 # k/uL (0.0-0.8) 05/19/17 06:10 PT 26.3 Seconds (9.4-11.6) H 05/19/17 06:10 INR 2.48 (0.9-1.2) H 05/19/17 06:10 APTT 33.0 Seconds (24.5-32.8) H 05/16/17 18:30 Sodium 135 mmol/L (137-145) L 05/19/17 06:10 Potassium 3.4 mmol/L (3.5-5.1) L 05/19/17 06:10 Chloride 102 mmol/L (98-107) 05/19/17 06:10 Carbon Dioxide 25 mmol/L (22-30) 05/19/17 06:10 BUN 20 mg/dL (9-20) 05/19/17 06:10 Creatinine 1.00 mg/dL (0.66-1.25) 05/19/17 06:10 Estimated Creat Clear 66 05/19/17 06:10 Est GFR ( Amer) > 60 (60-) 05/19/17 06:10 Est GFR (Non-Af Amer) > 60 (60-) 05/19/17 06:10 Glucose 216 mg/dL (74-106) H 05/19/17 06:10 Calcium 9.5 mg/dL (8.4-10.2) 05/19/17 06:10 Total Bilirubin 0.2 mg/dL (0.2-1.3) 05/19/17 06:10 AST 21 U/L (15-46) 05/19/17 06:10 ALT 40 U/L (13-69) 05/19/17 06:10 Alkaline Phosphatase 79 U/L (38-126) 05/19/17 06:10 NT-Pro-B Natriuret Pep 1091.9 pg/mL (15.0-125.0) H 05/16/17 18:30 Total Protein 6.4 g/dL (6.3-8.2) 05/19/17 06:10 Albumin 3.2 g/dL (3.5-5.0) L 05/19/17 06:10 Urine Color Yellow (YELLOW) 05/16/17 18:54 Urine Appearance Clear (CLEAR) 05/16/17 18:54 Urine pH 5.5 (5.0 - 8.0) 05/16/17 18:54 Ur Specific [place] 1.015 (1.010-1.030) 05/16/17 18:54 Urine Protein 1+ mg/dL (NEGATIVE) H 05/16/17 18:54 Urine Ketones Negative mg/dL (NEGATIVE) 05/16/17 18:54 Urine Occult Blood Trace-intact (NEGATIVE) H 05/16/17 18:54 Urine Nitrite Negative (NEGATIVE) 05/16/17 18:54 Urine Bilirubin Negative (NEGATIVE) 05/16/17 18:54 Urine Urobilinogen 0.2 Eu (0.2-1.0) 05/16/17 18:54 Ur Leukocyte Esterase Negative (NEGATIVE) 05/16/17 18:54 Urine Glucose Negative mg/dL (NEGATIVE) 05/16/17 18:54 Assessment/Plan - Assessment/Plan (1) Diverticulitis Status: Acute Current Visit: Yes Comment: Patient continues to have some pain in th LLQ area. No guarding or rebound tenderness noted. Will get CT scan to look for possible diverticulitis. Plan: Continue on IV flagyl and rocephin. Trial of liquid diet. (2) Pneumonia Status: Acute Current Visit: Yes Qualifiers: Pneumonia type: due to unspecified organism Laterality: right Lung location: middle lobe of lung Qualified Code(s): J18.1 - Lobar pneumonia, unspecified organism Plan: WBC back to normal. Try to wean off O2. CXR today unchanged - does not show failure. Zithromax 3 days complete. Send viral respiratory panel. Start acidophilus with the 3 antibiotics. Replace K+ orally.
--- NOTE | 2017-05-19 14:54 | Diagnostic Imaging Report ---
BRITT QUAN [facility] [address] [address] Report Submission Date: May 19, 2017 7:18:39 AM CDT Patient Study Name: KIMBER JOSEPH Date: May 19, 2017 6:56:00 AM CDT MRN: [id number] Modality Type: CR Gender: M Description: CHEST : 41 Institution: [facility] Physician: BRITT QUAN HISTORY: 72-year-old male with cough, pneumonia. COMPARISON: Chest x-ray dated 05/16/2017 TECHNIQUE: 2 views of the chest were performed. FINDINGS: Left chest AICD and postoperative changes of median sternotomy are re- identified. No pneumothorax, new infiltrates, pleural effusions, or pulmonary edema. The heart is not enlarged. IMPRESSION: Postoperative changes of the heart without evidence of acute intrathoracic process. Electronically signed on May 19, 2017 7:18:39 AM CDT by: Bill PARIKH
[2017-05-19] MEDS: FUROSEMIDE 40 MG TABLET PO SCH ×3 (15:23→19:24)
[2017-05-19 16:40] LABS: ADENOVIRUS DNA NEGATIVE (NEGATIVE); BORDETELLA PERTUSSIS DNA NEGATIVE (NEGATIVE); SOURCE: SWAB
[2017-05-19] MEDS: CARVEDILOL 12.5 MG TABLET PO SCH (21:03)
[2017-05-19] MEDS: FINASTERIDE 5 MG TABLET PO SCH (21:06)
[2017-05-19] MEDS: ATORVASTATIN CALCIUM 80 MG TABLET PO SCH (21:06)
[2017-05-19] MEDS: cefTRIAXone SODIUM 1 GM in 0.9 % SODIUM CHLORIDE 50 ML IV SCH (21:07)
[2017-05-19] MEDS: METOLAZONE 2.5 MG TABLET PO SCH (21:07)
[2017-05-20] MEDS ORDERED: metroNIDAZOLE/SODIUM CHLORIDE 100 ML IV ONE ×3 (04:40→21:19)
[2017-05-20] MEDS ORDERED: SALINE FLUSH 10 ML DISP.SYRIN IVF ONE ×4 (05:35→20:47)
[2017-05-20] MEDS: metroNIDAZOLE/SODIUM CHLORIDE 500 MG in PREMIX BAG 1 BAG IV SCH ×3 (05:37→21:32)
[2017-05-20] MEDS: PANTOPRAZOLE SODIUM 40 MG TABLET PO SCH (05:37)
[2017-05-20] MEDS: FUROSEMIDE 20 MG TABLET PO SCH ×2 (05:37→13:05)
[2017-05-20] MEDS: IPRATROPIUM/ALBUTEROL SULFATE 3 ML AMPUL.NEB NEB SCH ×6 (05:48→21:04)
[2017-05-20 06:08] LABS: BASOPHILS % 0.6 (0.0-1.5); EOSINOPHILS % 3.5 % (0.0-6.8); MEAN CORPUSCULAR HEMOGLOBIN 26.9 pg (28.0-34.0); MEAN CORPUSCULAR VOLUME 84.9 fl (80.0-100.0); MONOCYTES % 8.8 % (0.0-11.0); NEUTROPHILS # 6.2 # k/uL (1.4-7.7)
[2017-05-20 06:31] LABS: eGFR (African) > 60; eGFR (Non-African) > 60
--- NOTE | 2017-05-20 07:20 | Inpatient Progress Note ---
Subjective - Required Recertification Statement I anticipate X number of days because-include discharge plan: 1 - Review of Systems Subjective: Patient feeling some better today. Still coughing and feels a bit SOB if too active though walked in [place] yesterday. Still having LLQ pain but it is some better. Normal BM yesterday. Objective - Exam Vitals and I&O: Vital Signs Temp 97.7 F 05/20/17 05:41 Pulse 62 05/20/17 05:41 Resp 20 05/20/17 05:41 BP 110/85 05/20/17 05:41 Pulse Ox 95 05/20/17 05:41 Intake & Output 05/19/17 05/19/17 05/20/17 11:59 23:59 11:59 Intake Total 360 1180 200 Balance 360 1180 200 Weight 72.575 kg Intake: IV 200 Left Forearm 200 Oral 360 1180 Other: Voiding Method Urinal Urinal # Voids 1 3 2 General: Alert, Oriented to Person, Oriented to Place, Oriented to Time, Cooperative, Mild distress (If talks too much gets a cough and mild SOB) Neck: Supple Lungs: Rhonchi Cardiovascular: Regular rate Abdomen: Normal bowel sounds, Soft. No: No tenderness (BLQ) - Results Results: Laboratory Results WBC 9.60 K/ul (4.00-12.00) 05/20/17 06:00 RBC 4.29 M/ul (3.90-5.20) 05/20/17 06:00 Hgb 11.5 g/dL (12.0-18.0) L 05/20/17 06:00 Hct 36.4 % (37.0-53.0) L 05/20/17 06:00 MCV 84.9 fl (80.0-100.0) 05/20/17 06:00 MCH 26.9 pg (28.0-34.0) L 05/20/17 06:00 MCHC 31.7 g/dL (30.0-36.0) 05/20/17 06:00 RDW 17.4 % (11.3-14.3) H 05/20/17 06:00 Plt Count 226 K/mm3 (130-400) 05/20/17 06:00 Neut % (Auto) 63.7 % (39.0-79.0) 05/20/17 06:00 Lymph % (Auto) 20.8 % (16.0-50.0) 05/20/17 06:00 [place] % (Auto) 8.8 % (0.0-11.0) 05/20/17 06:00 Eos % (Auto) 3.5 % (0.0-6.8) 05/20/17 06:00 Baso % (Auto) 0.6 (0.0-1.5) 05/20/17 06:00 Neut # (Auto) 6.2 # k/uL (1.4-7.7) 05/20/17 06:00 Lymph # (Auto) 2.0 # k/uL (0.6-4.0) 05/20/17 06:00 [place] # (Auto) 0.8 # k/uL (0.0-0.9) 05/20/17 06:00 Eos # (Auto) 0.3 # k/uL (0.0-0.6) 05/20/17 06:00 Baso # (Auto) 0.1 # k/uL (0.0-0.5) 05/20/17 06:00 Reactive Lymphs % 2.5 % (0.0-5.0) 05/20/17 06:00 Reactive Lymphs # 0.2 # k/uL (0.0-0.8) 05/20/17 06:00 PT 26.3 Seconds (9.4-11.6) H 05/19/17 06:10 INR 2.48 (0.9-1.2) H 05/19/17 06:10 APTT 33.0 Seconds (24.5-32.8) H 05/16/17 18:30 Sodium 137 mmol/L (137-145) 05/20/17 06:00 Potassium 3.6 mmol/L (3.5-5.1) 05/20/17 06:00 Chloride 101 mmol/L (98-107) 05/20/17 06:00 Carbon Dioxide 29 mmol/L (22-30) 05/20/17 06:00 BUN 17 mg/dL (9-20) 05/20/17 06:00 Creatinine 0.90 mg/dL (0.66-1.25) 05/20/17 06:00 Estimated Creat Clear 73 10/17/17 06:00 Est GFR ( Amer) > 60 (60-) 05/20/17 06:00 Est GFR (Non-Af Amer) > 60 (60-) 05/20/17 06:00 Glucose 99 mg/dL (74-106) 05/20/17 06:00 Calcium 9.8 mg/dL (8.4-10.2) 05/20/17 06:00 Total Bilirubin 0.2 mg/dL (0.2-1.3) 05/19/17 06:10 AST 21 U/L (15-46) 05/19/17 06:10 ALT 40 U/L (13-69) 05/19/17 06:10 Alkaline Phosphatase 79 U/L (38-126) 05/19/17 06:10 NT-Pro-B Natriuret Pep 1091.9 pg/mL (15.0-125.0) H 05/16/17 18:30 Total Protein 6.4 g/dL (6.3-8.2) 05/19/17 06:10 Albumin 3.2 g/dL (3.5-5.0) L 05/19/17 06:10 Urine Color Yellow (YELLOW) 05/16/17 18:54 Urine Appearance Clear (CLEAR) 05/16/17 18:54 Urine pH 5.5 (5.0 - 8.0) 05/16/17 18:54 Ur Specific [place] 1.015 (1.010-1.030) 05/16/17 18:54 Urine Protein 1+ mg/dL (NEGATIVE) H 05/16/17 18:54 Urine Ketones Negative mg/dL (NEGATIVE) 05/16/17 18:54 Urine Occult Blood Trace-intact (NEGATIVE) H 05/16/17 18:54 Urine Nitrite Negative (NEGATIVE) 05/16/17 18:54 Urine Bilirubin Negative (NEGATIVE) 05/16/17 18:54 Urine Urobilinogen 0.2 Eu (0.2-1.0) 05/16/17 18:54 Ur Leukocyte Esterase Negative (NEGATIVE) 05/16/17 18:54 Urine Glucose Negative mg/dL (NEGATIVE) 05/16/17 18:54 Adenovirus DNA Negative (NEGATIVE) 05/19/17 11:00 B. pertussis DNA (PCR) Negative (NEGATIVE) 05/19/17 11:00 C. pneumoniae DNA (PCR) Negative (NEGATIVE) 05/19/17 11:00 Coronavirus OC43 (PCR) Negative (NEGATIVE) 05/19/17 11:00 Coronavirus HKU1 (PCR) Negative (NEGATIVE) 05/19/17 11:00 Coronavirus 229E (PCR) Negative (NEGATIVE) 05/19/17 11:00 Coronavirus NL63 (PCR) Negative (NEGATIVE) 05/19/17 11:00 Human Metapneumovir RNA Negative (NEGATIVE) 05/19/17 11:00 Influenza A (H1) PCR Negative (NEGATIVE) 05/19/17 11:00 Influenza A (H1N1) Ab Negative (NEGATIVE) 05/19/17 11:00 Influenza A (H1N1) Ag Negative (NEGATIVE) 05/19/17 11:00 Influenza A (H3) Ab Negative (NEGATIVE) 05/19/17 11:00 H.influenzae Type B Ab Negative (NEGATIVE) 05/19/17 11:00 M.pneumoniae DNA (PCR) Negative (NEGATIVE) 05/19/17 11:00 Parainfluenza 1 (PCR) Negative (NEGATIVE) 05/19/17 11:00 Parainfluenza 2 (PCR) Negative (NEGATIVE) 05/19/17 11:00 Parainfluenza 3 (PCR) Negative (NEGATIVE) 05/19/17 11:00 Parainfluenza 4 (PCR) Negative (NEGATIVE) 05/19/17 11:00 RSV (PCR) Negative (NEGATIVE) 05/19/17 11:00 Rhinovirus (PCR) Negative (NEGATIVE) 05/19/17 11:00 Virus Source Swab 05/19/17 11:00 Assessment/Plan - Assessment/Plan (1) Diverticulitis Status: Acute Current Visit: Yes Comment: Patient continues to have some pain in th LLQ area. No guarding or rebound tenderness noted. Will get CT scan to look for possible diverticulitis. Plan: Continue IV antbiotics today. Has done a full liquid diet since yesterday. Continue today. (2) Pneumonia Status: Acute Current Visit: Yes Qualifiers: Pneumonia type: due to unspecified organism Laterality: right Lung location: middle lobe of lung Qualified Code(s): J18.1 - Lobar pneumonia, unspecified organism Plan: IV zithromax complete. Now on rocephin - will leave IV as also for diverticulitis. Encourage cough and IS.
[2017-05-20] MEDS: INSULIN REGULAR, HUMAN 100 UNIT/ML 3ML VIAL SQ SCH ×3 (07:35→16:24)
[2017-05-20] MEDS: BUDESONIDE 0.5MG/2ML AMPUL.NEB NEB SCH ×2 (08:53→21:03)
[2017-05-20] MEDS: [UNRECOGNIZED DRUG - OTHER] PO SCH ×2 (09:00→21:36)
[2017-05-20] MEDS: GLIMEPIRIDE 2 MG TABLET PO SCH (09:00)
[2017-05-20] MEDS: ACIDOPHILUS PO SCH ×2 (09:00→21:36)
[2017-05-20] MEDS: SPIRONOLACTONE 25 MG TABLET PO SCH (09:01)
[2017-05-20] MEDS: CARVEDILOL 12.5 MG TABLET PO SCH ×2 (09:01→21:33)
[2017-05-20] MEDS: WARFARIN SODIUM 2.5 MG TABLET PO SCH (09:02)
[2017-05-20] MEDS: LOSARTAN POTASSIUM 50 MG TABLET PO SCH (09:04)
[2017-05-20] MEDS: ISOSORBIDE MONONITRATE 30 MG TAB.ER.24H PO SCH (09:05)
[2017-05-20] MEDS: ASPIRIN EC 81 MG TABLET.DR PO SCH (09:05)
[2017-05-20] MEDS: TAMSULOSIN HCL 0.4 MG CAP.ER.24H PO SCH (09:05)
[2017-05-20] MEDS: traMADol HCL 50 MG TABLET PO SCH ×2 (09:06→21:43)
[2017-05-20] MEDS: MULTIVITAMIN 1 EACH TABLET PO SCH (09:06)
[2017-05-20] MEDS: INSULIN DETEMIR 100 UNIT/ML 3ML PEN.INJCTR SQ SCH ×2 (09:07→21:30)
[2017-05-20] MEDS: FUROSEMIDE 40 MG TABLET PO SCH (13:05)
[2017-05-20] MEDS: cefTRIAXone SODIUM 1 GM in 0.9 % SODIUM CHLORIDE 50 ML IV SCH (21:03)
[2017-05-20] MEDS: ATORVASTATIN CALCIUM 80 MG TABLET PO SCH (21:34)
[2017-05-20] MEDS: FINASTERIDE 5 MG TABLET PO SCH (21:35)
[2017-05-20] MEDS: METOLAZONE 2.5 MG TABLET PO SCH (21:35)
[2017-05-21] MEDS: IPRATROPIUM/ALBUTEROL SULFATE 3 ML AMPUL.NEB NEB SCH ×4 (04:58→13:30)
[2017-05-21] MEDS ORDERED: metroNIDAZOLE/SODIUM CHLORIDE 100 ML IV ONE ×2 (05:22→12:18)
[2017-05-21] MEDS ORDERED: SALINE FLUSH 10 ML DISP.SYRIN IVF ONE ×3 (05:56→13:27)
[2017-05-21] MEDS: metroNIDAZOLE/SODIUM CHLORIDE 500 MG in PREMIX BAG 1 BAG IV SCH ×2 (06:03→12:22)
[2017-05-21] MEDS: PANTOPRAZOLE SODIUM 40 MG TABLET PO SCH (06:08)
[2017-05-21] MEDS: FUROSEMIDE 20 MG TABLET PO SCH (06:11)
[2017-05-21] MEDS: GLIMEPIRIDE 2 MG TABLET PO SCH (07:09)
[2017-05-21] MEDS: INSULIN REGULAR, HUMAN 100 UNIT/ML 3ML VIAL SQ SCH ×2 (07:13→11:17)
--- NOTE | 2017-05-21 07:40 | Discharge Summary ---
Discharge Summary - Discharge Sumary History of Present Illness: 72-year-old white male who stated he is been having some increasing dyspnea over the last 3 to 4 weeks. Patient was recently seen in the ED and in the clinic for evaluation. Patient was felt to be having some mild exacerbation of COPD and congestive heart failure. Patient states that despite therapy he has been getting worse especially over the last 24 hours. Patient has developed a productive sounding cough. Patient data the is unable to get any flameout. Patient denies any orthotic symptoms. Patient is not had a pedal edema. Patient denies any chest pain or chest pressure. Patient was subsequently evaluated in the ED again. Chest x-ray showed a right middle lobe pneumonia with a leukocytosis. It was felt that with the patient other chronic comorbidities to admit the patient to acute care further evaluation and treatment. Patient stated he is getting worn out by his cough. Has developed some left lower quadrant abdominal wall pain felt to be related to coughing. Patient stated he is not had any chills. Has had a mild low-grade fever at times. Condition at Discharge: Stable Home Medications: Ambulatory Orders Medication Instructions Recorded Aspirin EC [Ecotrin] 81 mg PO DAILY 04/16/16 Atorvastatin Calcium [Lipitor] 80 mg PO HS 04/16/16 Finasteride [Proscar] 5 mg PO HS 04/16/16 Insulin Glargine,Hum.rec.anlog 10 units SQ AM 04/16/16 [Lantus Solostar] Insulin Glargine,Hum.rec.anlog 25 units SQ HS 04/16/16 [Lantus Solostar] Isosorbide Mononitrate [Imdur] 90 mg PO DAILY 04/16/16 Losartan Potassium [Cozaar] 25 mg PO DAILY 04/16/16 Nitroglycerin 0.4 mg SL DIRECTED PRN 04/16/16 Omeprazole [Prilosec] 40 mg PO DAILY 04/16/16 Tamsulosin HCl [Flomax] 0.4 mg PO DAILY 04/16/16 Antiarthritic Combination No.2 900 mg PO QDAY 02/23/17 [Glucosamine-Chondroitin] Multivitamin/Ferrous Sulfate 18 mg PO QDAY 02/23/17 [One-Daily Kviaw-Jct-Zsuh Tab] Ascorbic Acid [C-1000] 1,000 mg PO QDAY 05/02/17 Budesonide/Formoterol Fumarate 2 puff IH Q12H 05/02/17 [Symbicort 160-4.5 Mcg Inhaler] Metolazone [Zaroxolyn] 5 mg PO QD 05/02/17 [place]-3 Fatty Acids/Epa [Neurepa 1 2 gm PO BID 05/02/17 Gram Capsule] Levofloxacin [Levaquin] 500 mg PO DAILY #5 tablet 05/20/17 Metronidazole 375 mg PO TID #15 capsule 05/20/17 Consultations this Visit: None Procedures this Visit: None Allergies/Adverse Reactions: Allergies Allergy/AdvReac Type Severity Reaction Status Date / Time carbamazepine [From Tegretol] Allergy Verified 05/02/17 14:19 penicillin G Allergy Verified 05/02/17 14:19 phenytoin sodium Allergy Verified 05/02/17 14:19 [From Dilantin] phenytoin sodium extended Allergy Verified 05/02/17 14:19 [From Dilantin] Patient Problems: Current Active Problems Problem Status Onset Abdominal pain, LLQ (left lower quadrant) Acute Diverticulitis Acute Pneumonia Acute Discharge Summary: Patient was admitted with pneumonia and diverticulitis. Treated with IV zithromax 500 mg, rocephin, and flagyl as well as O2 and HFN. O2 eventually weaned off. Cough remained but repeat CXR showed no change. Abdominal pain improved. Tolerated a regular diet. Discharged home in good condition. Hospital Course: Discharge Dx. Pneumonia. CAD. CHF. DM. Disposition - home
[2017-05-21] MEDS: [UNRECOGNIZED DRUG - OTHER] PO SCH (08:33)
[2017-05-21] MEDS: ACIDOPHILUS PO SCH (08:33)
[2017-05-21] MEDS: SPIRONOLACTONE 25 MG TABLET PO SCH (08:34)
[2017-05-21] MEDS: CARVEDILOL 12.5 MG TABLET PO SCH (08:34)
[2017-05-21] MEDS: WARFARIN SODIUM 2.5 MG TABLET PO SCH (08:35)
[2017-05-21] MEDS: INSULIN DETEMIR 100 UNIT/ML 3ML PEN.INJCTR SQ SCH (08:39)
[2017-05-21] MEDS: LOSARTAN POTASSIUM 50 MG TABLET PO SCH (08:41)
[2017-05-21] MEDS: TAMSULOSIN HCL 0.4 MG CAP.ER.24H PO SCH (08:43)
[2017-05-21] MEDS: ASPIRIN EC 81 MG TABLET.DR PO SCH (08:43)
[2017-05-21] MEDS: ISOSORBIDE MONONITRATE 30 MG TAB.ER.24H PO SCH (08:43)
[2017-05-21] MEDS: MULTIVITAMIN 1 EACH TABLET PO SCH (08:44)
[2017-05-21] MEDS: traMADol HCL 50 MG TABLET PO SCH (08:47)
[2017-05-21 10:25] VITALS: BP 141/69
[2017-05-21] MEDS ORDERED: [UNRECOGNIZED DRUG - OTHER] IM ONE (14:00)
[2017-05-21] MEDS: BUDESONIDE 0.5MG/2ML AMPUL.NEB NEB SCH (15:14)
[2017-05-21] MEDS: FUROSEMIDE 40 MG TABLET PO SCH (15:47)
== END 2017-05-21 14:15 | disposition home health service (06) | DRG 194 ==
LOC: ED 17:07 → SOUTH 20:07 → OBSVTOIN 20:45
PROVIDERS: ADMIT Family Medicine; ATTEND Family Medicine
DX: J18.9 Pneumonia, unspecified organism (principal); K57.92 Diverticulitis of intestine, part unspecified, without perforation or abscess without bleeding
CPT/HCPCS: 36415; 71020; 74000; 74177; 80048; 80053; 81002; 83880; 85025; 85610; 85730; 87040; 87486; 87581; 87633; 87798; 94640; 94760; A9270; G0378; J0456; J0696; J1815; J3490; J7050; J7060; J7626; Q9966; 99223; 99232; 99238; 99283; 99284; A9698; S1016

== ENCOUNTER 2017-06-04 08:36 | Outpatient (CLI) | payer MEDICARE, OTHER | END 2017-06-04 08:37 | LOC: LAB 08:36 | PROVIDERS: ATTEND Family Medicine | DX: R19.7 Diarrhea, unspecified (principal) | CPT/HCPCS: 87493 ==

== ENCOUNTER 2017-06-08 10:30 | Emergency (ER) | payer MEDICARE, OTHER ==
--- NOTE | 2017-06-08 11:22 | ED Physician Documentation ---
Upper Respiratory Symptoms - HISTORIAN Historian: patient, spouse - HPI Stated Complaint: cough, weakness Chief Complaint: Cough/ Upper Respiratory Additional Information: pt c/o cough weakness not eating still on BRAT diet. matt piña inhosp 05-20-17 for pneumonis-not recovered totally from that ache all over worse essp past 2-3 days-has poor immune response - spleen removed yrs ago Onset: days ago (2) Duration: intermittent episodes Context: other (recently exposed at [employer] to very sick flu pt.). denies: recent foreign travel Severity: moderate Associated Symptoms: productive cough, shortness of breath. denies: fever, chills Worsened by Deep Breath: Yes - ROS CONST/EYES: weakness, other (anorexia) CVS/RESP: shortness of breath LYMPH: denies: leg swelling, swollen glands GI/: problems urinating (dec ua output) MS/SKIN: muscle aches - PAST HX Lung Disease: COPD, pneumonia, other (htn cad divertic dm at 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) Immunizations: influenza Allergies/Adverse Reactions: Allergies Allergy/AdvReac Type Severity Reaction Status Date / Time carbamazepine [From Tegretol] Allergy Verified 06/08/17 10:51 penicillin G Allergy Verified 06/08/17 10:51 phenytoin sodium Allergy Verified 06/08/17 10:51 [From Dilantin] phenytoin sodium extended Allergy Verified 06/08/17 10:51 [From Dilantin] Home Medications: Ambulatory Orders Medication Instructions Recorded Aspirin EC [Ecotrin] 81 mg PO DAILY 04/16/16 Atorvastatin Calcium [Lipitor] 80 mg PO HS 04/16/16 Finasteride [Proscar] 5 mg PO HS 04/16/16 Insulin Glargine,Hum.rec.anlog 10 units SQ AM 04/16/16 [Lantus Solostar] Insulin Glargine,Hum.rec.anlog 25 units SQ HS 04/16/16 [Lantus Solostar] Isosorbide Mononitrate [Imdur] 90 mg PO DAILY 04/16/16 Losartan Potassium [Cozaar] 25 mg PO DAILY 04/16/16 Nitroglycerin 0.4 mg SL DIRECTED PRN 04/16/16 Omeprazole [Prilosec] 40 mg PO DAILY 04/16/16 Tamsulosin HCl [Flomax] 0.4 mg PO DAILY 04/16/16 Antiarthritic Combination No.2 900 mg PO QDAY 02/23/17 [Glucosamine-Chondroitin] Multivitamin/Ferrous Sulfate 18 mg PO QDAY 02/23/17 [One-Daily Qhtqm-Cue-Rosz Tab] Ascorbic Acid [C-1000] 1,000 mg PO QDAY 05/02/17 Budesonide/Formoterol Fumarate 2 puff IH Q12H 05/02/17 [Symbicort 160-4.5 Mcg Inhaler] Metolazone [Zaroxolyn] 5 mg PO QD 05/02/17 [place]-3 Fatty Acids/Epa [Neurepa 1 2 gm PO BID 05/02/17 Gram Capsule] Metronidazole 375 mg PO TID #15 capsule 05/20/17 - SOCIAL HX Smoking History: non-smoker Alcohol Use: none Drug Use: none - FAMILY HX Family History: no significant history - VITAL SIGNS Vital Signs: Vital Signs Temp Pulse Resp BP Pulse Ox 98.2 F 63 14 104/49 98 06/08/17 10:54 06/08/17 12:30 06/08/17 10:54 06/08/17 10:54 06/08/17 12:30 - REVIEWED ASSESSMENTS Nursing Assessment Reviewed: Yes Vitals Reviewed: Yes ED Results Lab/Radiology - Lab Results Lab Results: Lab Results 06/08/17 06/08/17 06/08/17 11:40 11:40 11:40 WBC RBC Hgb Hct MCV MCH MCHC RDW Plt Count Neut % (Auto) Lymph % (Auto) [place] % (Auto) Eos % (Auto) Baso % (Auto) Neut # (Auto) Lymph # (Auto) [place] # (Auto) Eos # (Auto) Baso # (Auto) Reactive Lymphs % Reactive Lymphs # Sodium 138 mmol/L mmol/L (137-145) Potassium 3.7 mmol/L mmol/L (3.5-5.1) Chloride 105 mmol/L mmol/L (98-107) Carbon Dioxide 24 mmol/L mmol/L (22-30) BUN 28 mg/dL H mg/dL (9-20) Creatinine 1.00 mg/dL mg/dL (0.66-1.25) Estimated Creat Clear 64 Est GFR ( Amer) > 60 (60 - ) Est GFR (Non-Af Amer) > 60 (60 - ) Glucose 156 mg/dL H mg/dL (74-106) Calcium 9.0 mg/dL mg/dL (8.4-10.2) Total Bilirubin 0.6 mg/dL mg/dL (0.2-1.3) AST 32 U/L U/L (15-46) ALT 41 U/L U/L (13-69) Alkaline Phosphatase 77 U/L U/L (38-126) Creatine Kinase Troponin I 0.13 ng/mL H ng/mL (0.03-0.06) Total Protein 6.3 g/dL g/dL (6.3-8.2) Albumin 3.1 g/dL L g/dL (3.5-5.0) Influenza Type A Ag Negative (NEGATIVE) Influenza Type B Ag Negative (NEGATIVE) 06/08/17 06/08/17 11:40 11:40 WBC 15.30 K/ul H K/ul (4.00-12.00) RBC 3.69 M/ul L M/ul (3.90-5.20) Hgb 10.1 g/dL L g/dL (12.0-18.0) Hct 31.5 % L % (37.0-53.0) MCV 85.4 fl fl (80.0-100.0) MCH 27.5 pg L pg (28.0-34.0) MCHC 32.1 g/dL g/dL (30.0-36.0) RDW 17.1 % H % (11.3-14.3) Plt Count 242 K/mm3 K/mm3 (130-400) Neut % (Auto) 83.9 % H % (39.0-79.0) Lymph % (Auto) 9.1 % L % (16.0-50.0) [place] % (Auto) 4.7 % % (0.0-11.0) Eos % (Auto) 0.6 % % (0.0-6.8) Baso % (Auto) 0.3 (0.0-1.5) Neut # (Auto) 12.9 # k/uL H # k/uL (1.4-7.7) Lymph # (Auto) 1.4 # k/uL # k/uL (0.6-4.0) [place] # (Auto) 0.7 # k/uL # k/uL (0.0-0.9) Eos # (Auto) 0.1 # k/uL # k/uL (0.0-0.6) Baso # (Auto) 0.0 # k/uL # k/uL (0.0-0.5) Reactive Lymphs % 1.4 % % (0.0-5.0) Reactive Lymphs # 0.2 # k/uL # k/uL (0.0-0.8) Sodium Potassium Chloride Carbon Dioxide BUN Creatinine Estimated Creat Clear Est GFR ( Amer) Est GFR (Non-Af Amer) Glucose Calcium Total Bilirubin AST ALT Alkaline Phosphatase Creatine Kinase 34 U/L L U/L (55-170) Troponin I Total Protein Albumin Influenza Type A Ag Influenza Type B Ag - Radiology Radiology Impressions: cxr=probable persistent pneumonia w/ infiltratles rt mid and lower lobes - Orders Orders: ED Orders Category Date Time Status Assess pulse oximetry Q1H Care 06/08/17 11:08 Active Continuous EKG monitoring Q30M Care 06/08/17 11:10 Active Continuous Pulse Oximetry Q30M Care 06/08/17 11:[address] IV Lock 1T Care 06/08/17 11:13 Active CHEST P.A.&LAT 2 VIEWS [RAD] Stat Exams 06/08/17 Completed BLOOD CULTURE Stat Lab 06/08/17 11:40 Received CBC/PLATELET/DIFF Routine Lab 06/08/17 11:40 Completed CMP Routine Lab 06/08/17 11:40 Completed CREATINE KINASE Routine Lab 06/08/17 11:40 Completed INFLUENZA A&B Routine Lab 06/08/17 11:40 Completed TROPONIN I (cTnI) Stat Lab 06/08/17 11:40 Completed URINALYSIS Routine Lab 06/08/17 Ordered 0.9 % Sodium Chloride [Normal Saline] 1,000 ml Med 06/08/17 11:14 Discontinued IV Q1H Ipratropium/Albuterol Sulfate [Duoneb] Med 06/08/17 11:08 Discontinued 3 ml NEB NOW ONE Oxygen Daily Oxygen 06/08/17 11:15 Ordered EKG WITH COMPARISON Stat Ther 06/08/17 11:10 Ordered Upper Respiratory Symptoms - EXAM General Appearance: moderate distress, lethargic EENT: eyes nml inspection Neck: normal inspection. No: lymphadenopathy, carotid bruit Respiratory: speaks full sentences, wheezes, rales. No: breath sounds nml Abdomen: non-tender, no distention CVS: irregularly irregular rhy (has hx at fib ecg sinus rhythm w/1st deg block no at fib on ekg), occasional extrasystoles Skin: color nml, no rash Extremities: non-tender, normal range of motion Neuro/Psych: oriented x3, depressed mood/affect. No: mood/affect nml Discharge Clincal Impression: possible mi chf at fib, possible residual pneumonia-, atypical influenza, UNCON DIABETES Referrals: Joanne Parrish MD [Primary Care Provider] - 2 Days Comments: disc w/pt-- DR LOBO [facility] [place] [facility] DIRECT ADMIT Condition: Fair Disposition: XFER SHT-TRM HOSP Decision to Admit: [id number] Decision Time: 12:57
[2017-06-08] MEDS: IPRATROPIUM/ALBUTEROL SULFATE 3 ML AMPUL.NEB NEB ONE (11:48)
[2017-06-08] MEDS: 0.9 % SODIUM CHLORIDE 1,000 ML IV ONE (11:49)
[2017-06-08 11:57] LABS: BASOPHILS % 0.3 (0.0-1.5); EOSINOPHILS % 0.6 % (0.0-6.8); MEAN CORPUSCULAR HEMOGLOBIN 27.5 pg (28.0-34.0); MEAN CORPUSCULAR VOLUME 85.4 fl (80.0-100.0); MONOCYTES % 4.7 % (0.0-11.0); NEUTROPHILS # 12.9 # k/uL (1.4-7.7)
[2017-06-08 12:07] LABS: eGFR (African) > 60; eGFR (Non-African) > 60
--- NOTE | 2017-06-08 12:46 | Diagnostic Imaging Report ---
[facility] [address] [facility].[address] [address] Report Submission Date: Jun 08, 2017 11:50:07 AM [employer] Patient Study Name: KIMBER JOSEPH Date: Jun 08, 2017 11:34:30 AM [employer] MRN: [id number] Modality Type: CR Gender: M Description: CHEST : 41 Institution: [facility] Physician: VONDA GUZMAN - ER Examination: PA and lateral chest. History: Evaluate lung mckenzie. Comparison exam: 19 May 2017 Findings: PA lateral chest demonstrate a normal cardiac silhouette. Vascular calcifications involving aortic arch. Sternotomy wires. Left-sided cardiac pacemaker. Right middle and lower lung parenchymal infiltrate. No blunting of the costophrenic margins. Osseous structures have remained stable. Impression: Right middle and lower lung parenchymal infiltrates. Electronically signed on Jun 08, 2017 11:50:07 AM [employer] by: Zeferino PARIKH
[2017-06-08 13:16] VITALS: BP 114/58
== END 2017-06-08 13:14 | disposition short-term general hospital (02) ==
LOC: ED 10:30
DX: J11.1 Influenza due to unidentified influenza virus with other respiratory manifestations (principal); E11.65 Type 2 diabetes mellitus with hyperglycemia
CPT/HCPCS: 71020; 80053; 82550; 84484; 85025; 87040; 87400; 93005; J7030; 96360; 99284; S1016

== ENCOUNTER 2017-06-14 11:50 | Inpatient (IN) | payer MEDICARE, OTHER ==
--- NOTE | 2017-06-14 11:57 | History and Physical Report ---
History of Present Illnes - History of Present Illness Reason for Visit: gait disturbance History of Present Illness: Patient is a 72-year-old white male who was recently admitted to the hospital acute care for pneumonia and diverticulitis. Patient was treated with IV antibiotic therapy. Patient was subsequently discharged home. Patient did fairly well for the first few days and then started to develop some generalized weakness. Patient subsequently was seen in the emergency room for chest pain and loss. Patient was found to have an elevated troponin was transferred over to [facility] for further evaluation and treatment. During his hospital stay there he was found to have a non-STEMI. Patient does have a history of coronary artery disease with congestive heart failure and a poor ejection fraction of 15 to 20% with global hypokinesis of the left ventricle. During his hospital stay patient has become a week. Physical therapy consult with the pain it was felt that the patient would benefit from some SNF PT and occupational therapy. Patient does have a history of diabetes mellitus and blood sugars have been stable. Patient has a history of chronic a to a fib it is on anticoagulation therapy for this.Patient was subsequently transferred to this institution for further rehab services. - Past Medical History Cardiac: AFIB (s/p ICD ), CAD, CHF, HTN, Other (cardomyopathy, AAA) Pulmonary: Pneumonia TILER: CVA, Seizure Gastrointestinal: Diverticulosis Heme/Onc: Cancer (skin) Musculoskeletal: Osteoarthritis Rheumatologic: Gout Renal/: Benign prostatic enlarg. Endocrine: Diabetes (type 2) Dermatology: Other (skin cancer) - Past Surgical History Past Surgical History: Arthroscopy, CABG (x2), Other (spleenectomy) - Past Social History Smoke: No Occupation: Retired from the [employer] Alcohol: None Drugs: None Lives: With Family Domestic Violence: Negative - Health Maintenance Health Maintenance: Pneumococcal Vaccine (23 & 13). denies: Influenza Vaccine Pneumonia Vaccine: Yes (Pneumo 23: 06/28/12 ) Resuscitation Status: Full Code Review of Systems - Review of Systems Constitutional: negative: Chills, Weakness Eyes: negative: pain, vision change ENT: negative: Ear Pain, Ear Discharge, Nose Pain, Nose Discharge, Nose Congestion Respiratory: negative: Cough, Dry, Shortness of Breath, Hemoptysis, SOB with Excertion, Pleuritic Pain, Sputum, Wheezing, Deferred, Other Cardiovascular: negative: Chest Pain, Palpitations, Orthopnea, Paroxysmal Noc. Dyspnea, Edema, Light Headedness Gastrointestinal: negative: Nausea, Vomiting, Abdominal Pain, Diarrhea, Constipation, Melena, Hematochezia Genitourinary: negative: Dysuria, Frequency, Incontinence, Hematuria, Retention Musculoskeletal: negative: Neck Pain, Back Pain Skin: negative: Rash Neurological: Weakness - Medications/Allergies Allergies/Adverse Reactions: Allergies Allergy/AdvReac Type Severity Reaction Status Date / Time carbamazepine [From Tegretol] Allergy Verified 06/08/17 10:51 penicillin G Allergy Verified 06/08/17 10:51 phenytoin sodium Allergy Verified 06/08/17 10:51 [From Dilantin] phenytoin sodium extended Allergy Verified 06/08/17 10:51 [From Dilantin] Home Medications: Home Medications Guaifenesin [Mucus Relief] 600 mg PO BID 06/14/17 Exam - Exam General: Alert, Oriented to Person, Oriented to Place, Oriented to Time, Cooperative HEENT: Atraumatic, PERRLA, Mouth Mucous membr. moist/[place], Edentulous (dentures) , Hearing Grossly Normal Neck: Normal Range of Motion. No: Stridor, Lymphadenopathy Carotids: WNL Thyroid: WNL Lungs: Clear to auscultation, Normal air movement, Speaks full Sentences, Respiratory Distress, Rhonchi (few scattered on the right) Cardiovascular: No murmurs, Irregularly Irregular Abdomen: Normal bowel sounds, Soft, No tenderness, No hepatospenomegaly, No masses. No: Distended Integumentary: Normal, [place], Warm, Dry Extremities: No clubbing, No cyanosis, No edema, Normal pulses Neurological: Normal gait (slightly wobbly), Normal speech, Strength Equal Bilat , Normal tone Psych/Mental Status: Mental status NL, Mood NL, Appropriate Affect Assessment/Plan - Assessment/Plan (1) COPD (chronic obstructive pulmonary disease) Status: Acute Current Visit: No Qualifiers: COPD type: unspecified COPD Qualified Code(s): J44.9 - Chronic obstructive pulmonary disease, unspecified (2) Hip pain Status: Acute Current Visit: No Qualifiers: Laterality: left Qualified Code(s): M25.552 - Pain in left hip (3) CAD (coronary artery disease) Status: Chronic Current Visit: No Qualifiers: Coronary Disease-Associated Artery/Lesion type: bypass graft [place] vs. transplanted heart: [place] heart Associated angina: without angina Qualified Code(s): I25.810 - Atherosclerosis of coronary artery bypass graft(s) without angina pectoris (4) Congestive heart failure (CHF) Status: Chronic Current Visit: No Qualifiers: (5) Diabetes mellitus Status: Chronic Current Visit: No Qualifiers: Diabetes mellitus type: type 2 Diabetes mellitus complication status: with unspecified complications Diabetes mellitus longterm insulin use: with longterm use Qualified Code(s): E11.8 - Type 2 diabetes mellitus with unspecified complications; Z79.4 - exterminator termite (current) use of insulin (6) Hypertension Status: Chronic Current Visit: No Qualifiers: Hypertension type: essential hypertension Qualified Code(s): I10 - Essential (primary) hypertension (7) Intermittent atrial fibrillation Status: Chronic Current Visit: No (8) Gait disturbance Status: Acute Current Visit: Yes VTE Assessment - RISK FACTOR SCORE VTE RISK FACTOR SCORES: AGE OVER 60 YEARS, ANTICIPATED BED CONFINEMENT OR IMMOBILIZATION > 24 HOURS, CONGESTIVE HEART FAILURE OR MYOCARDIAL INFARCTION - RISK VTE HIGH RISK: SCORE OF 3-4 (RISK PROXIMAL DVT 4-8%) PROPHYLAXIS NEEDED (on anticoagluation therapy)
[2017-06-14] MEDS ORDERED: NITROGLYCERIN 0.4 MG TAB.SUBL SL PRN (12:20)
[2017-06-14 12:33] VITALS: BMI 27.1
[2017-06-14] MEDS ORDERED: NYSTATIN 500,000 UNIT/5 ML UDC PO SCH (13:00)
[2017-06-14] MEDS ORDERED: WARFARIN SODIUM 2.5 MG TABLET PO ONE (13:02)
[2017-06-14] MEDS ORDERED: INSULIN NPH/REG 100 UNIT/ML 3ML VIAL SQ ONE (13:02)
[2017-06-14] MEDS: WARFARIN SODIUM 2.5 MG TABLET PO SCH (13:05)
[2017-06-14] MEDS: NYSTATIN 500,000 UNIT/5 ML UDC PO SCH ×3 (13:07→20:54)
[2017-06-14] MEDS: INSULIN REGULAR, HUMAN 100 UNIT/ML 3ML VIAL SQ SCH ×2 (13:07→17:02)
[2017-06-14] MEDS ORDERED: CARVEDILOL 12.5 MG TABLET PO ONE (16:35)
[2017-06-14] MEDS: IPRATROPIUM/ALBUTEROL SULFATE 3 ML AMPUL.NEB NEB SCH (17:46)
[2017-06-14] MEDS: FISH OIL 1,000 MG CAP PO SCH (20:23)
[2017-06-14] MEDS: FINASTERIDE 5 MG TABLET PO SCH (20:26)
[2017-06-14] MEDS: CARVEDILOL 25 MG TABLET PO SCH (20:26)
[2017-06-14] MEDS: ATORVASTATIN CALCIUM 80 MG TABLET PO SCH (20:26)
[2017-06-14] MEDS: FLUTICASONE/SALMETEROL 250-50 INHALER IH SCH (20:29)
[2017-06-14] MEDS: INSULIN DETEMIR 100 UNIT/ML 3ML PEN.INJCTR SQ SCH (20:49)
[2017-06-14] MEDS: traMADol HCL 50 MG TABLET PO PRN (20:51)
[2017-06-14] MEDS ORDERED: FATTY ACIDS PO SCH (21:00)
[2017-06-14] MEDS ORDERED: OMEGA PO SCH (21:00)
[2017-06-14] MEDS ORDERED: EPA PO SCH (21:00)
[2017-06-15] MEDS: IPRATROPIUM/ALBUTEROL SULFATE 3 ML AMPUL.NEB NEB SCH ×4 (01:00→17:51)
[2017-06-15] MEDS ORDERED: CARVEDILOL 12.5 MG TABLET PO ONE ×2 (05:43→17:25)
[2017-06-15] MEDS ORDERED: WARFARIN SODIUM 2.5 MG TABLET PO ONE (05:43)
[2017-06-15] MEDS: PANTOPRAZOLE SODIUM 40 MG TABLET PO SCH (06:33)
[2017-06-15] MEDS ORDERED: MULTIVITAMIN PO SCH (09:00)
[2017-06-15] MEDS ORDERED: [UNRECOGNIZED DRUG - OTHER] PO SCH (09:00)
[2017-06-15] MEDS ORDERED: FERROUS SULFATE PO SCH (09:00)
[2017-06-15] MEDS: INSULIN REGULAR, HUMAN 100 UNIT/ML 3ML VIAL SQ SCH ×3 (09:35→16:42)
[2017-06-15] MEDS: FLUTICASONE/SALMETEROL 250-50 INHALER IH SCH ×2 (09:42→20:29)
[2017-06-15] MEDS: CARVEDILOL 25 MG TABLET PO SCH ×2 (09:43→20:29)
[2017-06-15] MEDS: SPIRONOLACTONE 25 MG TABLET PO SCH (09:43)
[2017-06-15] MEDS: ASPIRIN EC 81 MG TABLET.DR PO SCH (09:44)
[2017-06-15] MEDS: FISH OIL 1,000 MG CAP PO SCH ×2 (09:44→20:29)
[2017-06-15] MEDS: FUROSEMIDE 40 MG TABLET PO SCH (09:45)
[2017-06-15] MEDS: TAMSULOSIN HCL 0.4 MG CAP.ER.24H PO SCH (09:45)
[2017-06-15] MEDS: NYSTATIN 500,000 UNIT/5 ML UDC PO SCH ×4 (09:46→20:38)
[2017-06-15] MEDS: INSULIN DETEMIR 100 UNIT/ML 3ML PEN.INJCTR SQ SCH ×2 (09:46→20:35)
[2017-06-15] MEDS: MULTIVITAMIN 1 EACH TABLET PO SCH (09:47)
[2017-06-15] MEDS: FUROSEMIDE 20 MG TABLET PO SCH (13:47)
[2017-06-15] MEDS: WARFARIN SODIUM 2.5 MG TABLET PO SCH (13:47)
[2017-06-15] MEDS: FINASTERIDE 5 MG TABLET PO SCH (20:30)
[2017-06-15] MEDS: ATORVASTATIN CALCIUM 80 MG TABLET PO SCH (20:30)
[2017-06-15] MEDS: traMADol HCL 50 MG TABLET PO PRN (20:32)
[2017-06-16] MEDS: IPRATROPIUM/ALBUTEROL SULFATE 3 ML AMPUL.NEB NEB SCH ×4 (00:25→17:06)
[2017-06-16] MEDS ORDERED: CARVEDILOL 12.5 MG TABLET PO ONE ×2 (05:25→16:19)
[2017-06-16] MEDS ORDERED: WARFARIN SODIUM 2.5 MG TABLET PO ONE (05:25)
[2017-06-16] MEDS: PANTOPRAZOLE SODIUM 40 MG TABLET PO SCH (06:19)
[2017-06-16 06:29] LABS: BASOPHILS % 0.3 (0.0-1.5); EOSINOPHILS % 1.5 % (0.0-6.8); MEAN CORPUSCULAR HEMOGLOBIN 27.1 pg (28.0-34.0); MEAN CORPUSCULAR VOLUME 84.3 fl (80.0-100.0); MONOCYTES % 5.5 % (0.0-11.0); NEUTROPHILS # 16.8 # k/uL (1.4-7.7)
[2017-06-16 06:38] LABS: eGFR (African) > 60; eGFR (Non-African) > 60
[2017-06-16] MEDS: INSULIN REGULAR, HUMAN 100 UNIT/ML 3ML VIAL SQ SCH ×3 (07:30→17:07)
[2017-06-16] MEDS: FLUTICASONE/SALMETEROL 250-50 INHALER IH SCH ×2 (09:42→20:13)
[2017-06-16] MEDS: SPIRONOLACTONE 25 MG TABLET PO SCH (09:43)
[2017-06-16] MEDS: ASPIRIN EC 81 MG TABLET.DR PO SCH (09:43)
[2017-06-16] MEDS: CARVEDILOL 25 MG TABLET PO SCH ×2 (09:43→20:13)
[2017-06-16] MEDS: FISH OIL 1,000 MG CAP PO SCH ×2 (09:44→20:15)
[2017-06-16] MEDS: FUROSEMIDE 40 MG TABLET PO SCH (09:44)
[2017-06-16] MEDS: TAMSULOSIN HCL 0.4 MG CAP.ER.24H PO SCH (09:44)
[2017-06-16] MEDS: INSULIN DETEMIR 100 UNIT/ML 3ML PEN.INJCTR SQ SCH ×2 (09:45→20:21)
[2017-06-16] MEDS: NYSTATIN 500,000 UNIT/5 ML UDC PO SCH ×4 (09:47→20:12)
[2017-06-16] MEDS: MULTIVITAMIN 1 EACH TABLET PO SCH (09:48)
[2017-06-16] MEDS: MAG HYDROX/AL HYDROX/SIMETH 30 ML UDC PO PRN (10:48)
--- NOTE | 2017-06-16 11:21 | Diagnostic Imaging Report ---
[facility]MED SURG [facility] [address] [facility] [address] [place], [place]. [address] Report Submission Date: Jun 16, 2017 10:09:01 AM PROPERTY ASSESSMENT MONITOR Patient Study Name: KIMBER JOSEPH Date: Jun 16, 2017 9:26:53 AM PROPERTY ASSESSMENT MONITOR MRN: [id number] Modality Type: CT\SR Gender: M Description: CT CHEST W/O CONTRAST : 41 Institution: [facility] Physician: [facility]/MED SURG Examination: CT chest History: Cough. Chest discomfort. Comparison exams: Plain film dated 08 June 2017 Technique: CT chest without contrast protocol Findings: Bilateral patchy parenchymal infiltrates, left greater than right. Mild posterior pleural thickening. No effusion. Anterior mediastinum and handy are without gross mass or pathologic adenopathy: though sensitivity is reduced on a noncontrast exam. Thoracic aorta demonstrates peripheral atherosclerotic disease. No aneurysm. Cardiac silhouette not enlarged. Coronary vascular calcifications. No effusion. Lower neck structures and upper abdominal organs are without gross abnormality. Aortic vascular calcifications including the celiac axis. Osseous structures demonstrate degenerative changes. Sternotomy wires. Cardiac pacemaker. Impression: Bilateral, left greater right, parenchymal infiltrates. No gross effusion. Followup recommended to document resolution. Electronically signed on Jun 16, 2017 10:09:01 AM PROPERTY ASSESSMENT MONITOR by: Zeferino PARIKH
--- NOTE | 2017-06-16 12:06 | Inpatient Progress Note ---
Subjective - Required Recertification Statement I anticipate X number of days because-include discharge plan: 14 - Review of Systems Subjective: Patient continues with a cough. Noted some burning in his esophageal area this am. Much better with Mylanta. Objective - Exam Vitals and I&O: Vital Signs Temp 97.1 F L 06/16/17 09:00 Pulse 74 06/16/17 09:00 Resp 20 06/16/17 09:00 BP 144/67 06/16/17 09:00 Pulse Ox 93 06/16/17 09:00 Intake & Output 06/15/17 06/16/17 06/16/17 23:59 11:59 23:59 Intake Total 360 360 Output Total 300 800 Balance 60 -440 Weight 66.678 kg Intake: Oral 360 360 Output: Urine 300 800 Other: Voiding Method Urinal # Voids 0 General: Alert, Oriented to Person, Oriented to Place, Oriented to Time, Cooperative Lungs: Rhonchi Cardiovascular: Regular rate - Results Results: Laboratory Results WBC 20.00 K/ul (4.00-12.00) H 06/16/17 06:00 RBC 4.57 M/ul (3.90-5.20) 06/16/17 06:00 Hgb 12.4 g/dL (12.0-18.0) 06/16/17 06:00 Hct 38.5 % (37.0-53.0) 06/16/17 06:00 MCV 84.3 fl (80.0-100.0) 06/16/17 06:00 MCH 27.1 pg (28.0-34.0) L 06/16/17 06:00 MCHC 32.2 g/dL (30.0-36.0) 06/16/17 06:00 RDW 16.2 % (11.3-14.3) H 06/16/17 06:00 Plt Count 288 K/mm3 (130-400) 06/16/17 06:00 Neut % (Auto) 84.2 % (39.0-79.0) H 06/16/17 06:00 Lymph % (Auto) 7.8 % (16.0-50.0) L 06/16/17 06:00 Nuckolls % (Auto) 5.5 % (0.0-11.0) 06/16/17 06:00 Eos % (Auto) 1.5 % (0.0-6.8) 06/16/17 06:00 Baso % (Auto) 0.3 (0.0-1.5) 06/16/17 06:00 Neut # (Auto) 16.8 # k/uL (1.4-7.7) H 06/16/17 06:00 Lymph # (Auto) 1.6 # k/uL (0.6-4.0) 06/16/17 06:00 [place]uckolls # (Auto) 1.1 # k/uL (0.0-0.9) H 06/16/17 06:00 Eos # (Auto) 0.3 # k/uL (0.0-0.6) 06/16/17 06:00 Baso # (Auto) 0.0 # k/uL (0.0-0.5) 06/16/17 06:00 Reactive Lymphs % 0.8 % (0.0-5.0) 06/16/17 06:00 Reactive Lymphs # 0.2 # k/uL (0.0-0.8) 06/16/17 06:00 PT 21.5 Seconds (9.4-11.6) H 06/16/17 06:00 INR 2.04 (0.9-1.2) H 06/16/17 06:00 Sodium 135 mmol/L (136-145) L 06/16/17 06:00 Potassium 3.6 mmol/L (3.5-5.1) 06/16/17 06:00 Chloride 95 mmol/L (98-107) L 06/16/17 06:00 Carbon Dioxide 33 mmol/L (22-30) H 06/16/17 06:00 BUN 53 mg/dL (9-20) H 06/16/17 06:00 Creatinine 1.20 mg/dL (0.66-1.25) 06/16/17 06:00 Estimated Creat Clear 50 06/16/17 06:00 Est GFR ( Amer) > 60 (60-) 06/16/17 06:00 Est GFR (Non-Af Amer) > 60 (60-) 06/16/17 06:00 Glucose 95 mg/dL (74-106) 06/16/17 06:00 Calcium 9.6 mg/dL (8.4-10.2) 06/16/17 06:00 Total Bilirubin 0.4 mg/dL (0.2-1.3) 06/16/17 06:00 AST 27 U/L (15-46) 06/16/17 06:00 ALT 54 U/L (13-69) 06/16/17 06:00 Alkaline Phosphatase 99 U/L (38-126) 06/16/17 06:00 Total Protein 6.9 g/dL (6.3-8.2) 06/16/17 06:00 Albumin 3.4 g/dL (3.5-5.0) L 06/16/17 06:00 Assessment/Plan - Assessment/Plan (1) Bilateral pulmonary infiltrates on chest x-ray Status: Acute Current Visit: Yes Plan: WBC 20,000 this am. Back in 05/20 it was normal when he was admitted to [facility] for pneumonia and treated with rocephin and zithromax. On transfer to [facility] WBC was 15,000. At [facility] it was 20-25,000 - never returning to baseline. Their CXR showed pneumonia and they treated him with oral levaquin [address] today shows B infiltrates. I believe patient has hospital acquired pneumonia that has not been treated adequately at [facility]> Will start IV vancomycin with pharmacy dosing for 10 days. Add probioitic. Recheck WBC in 48 hours. (2) Gait disturbance Status: Acute Current Visit: Yes
[2017-06-16] MEDS ORDERED: VANCOMYCIN PHARMACY TO DOSE IV SCH (13:00)
[2017-06-16] MEDS ORDERED: SALINE FLUSH 10 ML DISP.SYRIN IVF ONE ×2 (13:02→14:07)
[2017-06-16] MEDS: VANCOMYCIN HCL 1.25 GM in 0.9 % SODIUM CHLORIDE 250 ML IV SCH (13:10)
[2017-06-16] MEDS: FUROSEMIDE 20 MG TABLET PO SCH ×2 (13:33→14:02)
[2017-06-16] MEDS: WARFARIN SODIUM 2.5 MG TABLET PO SCH (17:07)
[2017-06-16] MEDS: ATORVASTATIN CALCIUM 80 MG TABLET PO SCH (20:15)
[2017-06-16] MEDS: [UNRECOGNIZED DRUG - OTHER] PO SCH (20:16)
[2017-06-16] MEDS: FINASTERIDE 5 MG TABLET PO SCH (20:16)
[2017-06-16] MEDS: traMADol HCL 50 MG TABLET PO PRN (20:32)
[2017-06-17] MEDS: IPRATROPIUM/ALBUTEROL SULFATE 3 ML AMPUL.NEB NEB SCH ×4 (05:55→16:33)
[2017-06-17] MEDS: PANTOPRAZOLE SODIUM 40 MG TABLET PO SCH (06:00)
[2017-06-17] MEDS: INSULIN REGULAR, HUMAN 100 UNIT/ML 3ML VIAL SQ SCH ×3 (08:12→17:06)
[2017-06-17] MEDS: [UNRECOGNIZED DRUG - OTHER] PO SCH ×2 (08:42→21:11)
[2017-06-17] MEDS: FLUTICASONE/SALMETEROL 250-50 INHALER IH SCH ×2 (08:42→21:10)
[2017-06-17] MEDS: ASPIRIN EC 81 MG TABLET.DR PO SCH (08:43)
[2017-06-17] MEDS: CARVEDILOL 12.5 MG TABLET PO SCH ×2 (08:43→21:11)
[2017-06-17] MEDS: SPIRONOLACTONE 25 MG TABLET PO SCH (08:43)
[2017-06-17] MEDS: FUROSEMIDE 40 MG TABLET PO SCH (08:44)
[2017-06-17] MEDS: NYSTATIN 500,000 UNIT/5 ML UDC PO SCH ×4 (08:44→21:10)
[2017-06-17] MEDS: FISH OIL 1,000 MG CAP PO SCH ×2 (08:44→21:01)
[2017-06-17] MEDS: TAMSULOSIN HCL 0.4 MG CAP.ER.24H PO SCH (08:44)
[2017-06-17] MEDS: MULTIVITAMIN 1 EACH TABLET PO SCH (08:45)
[2017-06-17] MEDS: INSULIN DETEMIR 100 UNIT/ML 3ML PEN.INJCTR SQ SCH ×2 (08:54→21:08)
[2017-06-17] MEDS: VANCOMYCIN HCL 1.25 GM in 0.9 % SODIUM CHLORIDE 250 ML IV SCH (12:50)
[2017-06-17] MEDS ORDERED: SALINE FLUSH 10 ML DISP.SYRIN IVF ONE (12:51)
[2017-06-17] MEDS: FUROSEMIDE 20 MG TABLET PO SCH (13:34)
[2017-06-17] MEDS: WARFARIN SODIUM 2.5 MG TABLET PO SCH (17:05)
[2017-06-17] MEDS: FINASTERIDE 5 MG TABLET PO SCH (21:11)
[2017-06-17] MEDS: ATORVASTATIN CALCIUM 80 MG TABLET PO SCH (21:11)
[2017-06-18] MEDS: IPRATROPIUM/ALBUTEROL SULFATE 3 ML AMPUL.NEB NEB SCH ×4 (01:03→18:03)
[2017-06-18 06:34] LABS: BASOPHILS % 0.3 (0.0-1.5); EOSINOPHILS % 1.6 % (0.0-6.8); MEAN CORPUSCULAR HEMOGLOBIN 26.9 pg (28.0-34.0); MEAN CORPUSCULAR VOLUME 84.3 fl (80.0-100.0); MONOCYTES % 8.9 % (0.0-11.0); NEUTROPHILS # 11.6 # k/uL (1.4-7.7)
[2017-06-18] MEDS: PANTOPRAZOLE SODIUM 40 MG TABLET PO SCH (06:37)
[2017-06-18] MEDS: INSULIN REGULAR, HUMAN 100 UNIT/ML 3ML VIAL SQ SCH ×3 (07:37→16:31)
[2017-06-18] MEDS: INSULIN DETEMIR 100 UNIT/ML 3ML PEN.INJCTR SQ SCH ×2 (07:38→20:39)
[2017-06-18] MEDS: FLUTICASONE/SALMETEROL 250-50 INHALER IH SCH ×2 (08:13→20:30)
[2017-06-18] MEDS: [UNRECOGNIZED DRUG - OTHER] PO SCH ×2 (08:13→20:31)
[2017-06-18] MEDS: SPIRONOLACTONE 25 MG TABLET PO SCH (08:14)
[2017-06-18] MEDS: CARVEDILOL 12.5 MG TABLET PO SCH ×2 (08:14→20:31)
[2017-06-18] MEDS: ASPIRIN EC 81 MG TABLET.DR PO SCH (08:15)
[2017-06-18] MEDS: TAMSULOSIN HCL 0.4 MG CAP.ER.24H PO SCH (08:15)
[2017-06-18] MEDS: MULTIVITAMIN 1 EACH TABLET PO SCH (08:16)
[2017-06-18] MEDS: NYSTATIN 500,000 UNIT/5 ML UDC PO SCH ×4 (08:16→20:30)
[2017-06-18] MEDS: FUROSEMIDE 40 MG TABLET PO SCH (08:16)
[2017-06-18] MEDS: FISH OIL 1,000 MG CAP PO SCH ×2 (08:18→20:30)
[2017-06-18] MEDS ORDERED: ONDANSETRON HCL/PF 4 MG/ 2ML VIAL IVP PRN (09:17)
[2017-06-18] MEDS: FUROSEMIDE 20 MG TABLET PO SCH (13:07)
[2017-06-18] MEDS: VANCOMYCIN HCL 1.25 GM in 0.9 % SODIUM CHLORIDE 250 ML IV SCH (13:09)
[2017-06-18] MEDS: WARFARIN SODIUM 2.5 MG TABLET PO SCH (17:44)
[2017-06-18] MEDS: ATORVASTATIN CALCIUM 80 MG TABLET PO SCH (20:30)
[2017-06-18] MEDS: FINASTERIDE 5 MG TABLET PO SCH (20:31)
[2017-06-19] MEDS: PANTOPRAZOLE SODIUM 40 MG TABLET PO SCH (06:07)
[2017-06-19] MEDS: IPRATROPIUM/ALBUTEROL SULFATE 3 ML AMPUL.NEB NEB SCH ×4 (06:08→17:40)
[2017-06-19] MEDS: INSULIN REGULAR, HUMAN 100 UNIT/ML 3ML VIAL SQ SCH ×3 (07:47→16:53)
[2017-06-19 08:58] LABS: BASOPHILS % 0.4 (0.0-1.5); EOSINOPHILS % 1.8 % (0.0-6.8); MEAN CORPUSCULAR HEMOGLOBIN 27.4 pg (28.0-34.0); MEAN CORPUSCULAR VOLUME 85.7 fl (80.0-100.0); MONOCYTES % 10.5 % (0.0-11.0); NEUTROPHILS # 9.9 # k/uL (1.4-7.7)
[2017-06-19] MEDS: NYSTATIN 500,000 UNIT/5 ML UDC PO SCH ×4 (09:11→19:08)
[2017-06-19] MEDS: FISH OIL 1,000 MG CAP PO SCH ×2 (09:12→19:08)
[2017-06-19] MEDS: FLUTICASONE/SALMETEROL 250-50 INHALER IH SCH ×2 (09:12→19:08)
[2017-06-19] MEDS: SPIRONOLACTONE 25 MG TABLET PO SCH (09:13)
[2017-06-19] MEDS: TAMSULOSIN HCL 0.4 MG CAP.ER.24H PO SCH (09:14)
[2017-06-19] MEDS: ASPIRIN EC 81 MG TABLET.DR PO SCH (09:14)
[2017-06-19] MEDS: MULTIVITAMIN 1 EACH TABLET PO SCH (09:15)
[2017-06-19] MEDS: CARVEDILOL 12.5 MG TABLET PO SCH ×2 (09:16→19:09)
[2017-06-19] MEDS: [UNRECOGNIZED DRUG - OTHER] PO SCH ×2 (09:16→19:09)
[2017-06-19] MEDS: INSULIN DETEMIR 100 UNIT/ML 3ML PEN.INJCTR SQ SCH ×2 (09:18→19:15)
[2017-06-19] MEDS: FUROSEMIDE 40 MG TABLET PO SCH (09:18)
[2017-06-19] MEDS ORDERED: SALINE FLUSH 10 ML DISP.SYRIN IVF ONE ×3 (14:12→21:09)
[2017-06-19] MEDS: FUROSEMIDE 20 MG TABLET PO SCH (14:20)
[2017-06-19] MEDS: VANCOMYCIN HCL 1.25 GM in 0.9 % SODIUM CHLORIDE 250 ML IV SCH (14:20)
[2017-06-19] MEDS ORDERED: COLCHICINE 0.6 MG TABLET PO ONE (16:33)
[2017-06-19] MEDS: WARFARIN SODIUM 2.5 MG TABLET PO SCH (16:57)
[2017-06-19] MEDS: ATORVASTATIN CALCIUM 80 MG TABLET PO SCH (19:08)
[2017-06-19] MEDS: FINASTERIDE 5 MG TABLET PO SCH (19:08)
[2017-06-19] MEDS: COLCHICINE 0.6 MG TABLET PO SCH (19:09)
[2017-06-19] MEDS: VANCOMYCIN HCL 1 GM in 0.9 % SODIUM CHLORIDE 250 ML IV SCH (21:31)
[2017-06-20] MEDS: IPRATROPIUM/ALBUTEROL SULFATE 3 ML AMPUL.NEB NEB SCH ×5 (00:10→23:47)
[2017-06-20] MEDS: PANTOPRAZOLE SODIUM 40 MG TABLET PO SCH (06:16)
[2017-06-20] MEDS: INSULIN REGULAR, HUMAN 100 UNIT/ML 3ML VIAL SQ SCH ×3 (07:50→16:47)
[2017-06-20] MEDS: COLCHICINE 0.6 MG TABLET PO SCH ×2 (09:00→20:00)
[2017-06-20] MEDS: FLUTICASONE/SALMETEROL 250-50 INHALER IH SCH ×2 (09:56→20:00)
[2017-06-20] MEDS: [UNRECOGNIZED DRUG - OTHER] PO SCH ×2 (09:56→20:00)
[2017-06-20] MEDS: SPIRONOLACTONE 25 MG TABLET PO SCH (09:57)
[2017-06-20] MEDS: TAMSULOSIN HCL 0.4 MG CAP.ER.24H PO SCH (09:58)
[2017-06-20] MEDS: FISH OIL 1,000 MG CAP PO SCH ×2 (09:58→20:01)
[2017-06-20] MEDS: ASPIRIN EC 81 MG TABLET.DR PO SCH (09:58)
[2017-06-20] MEDS: NYSTATIN 500,000 UNIT/5 ML UDC PO SCH ×4 (09:59→20:00)
[2017-06-20] MEDS: FUROSEMIDE 40 MG TABLET PO SCH (09:59)
[2017-06-20] MEDS: INSULIN DETEMIR 100 UNIT/ML 3ML PEN.INJCTR SQ SCH ×2 (10:00→20:08)
[2017-06-20] MEDS: MULTIVITAMIN 1 EACH TABLET PO SCH (10:04)
[2017-06-20] MEDS: VANCOMYCIN HCL 1 GM in 0.9 % SODIUM CHLORIDE 250 ML IV SCH ×2 (10:04→22:13)
[2017-06-20] MEDS: CARVEDILOL 12.5 MG TABLET PO SCH ×2 (10:05→20:01)
[2017-06-20] MEDS ORDERED: SALINE FLUSH 10 ML DISP.SYRIN IVF ONE ×2 (10:11→14:28)
[2017-06-20] MEDS: FUROSEMIDE 20 MG TABLET PO SCH (14:19)
[2017-06-20] MEDS: WARFARIN SODIUM 2.5 MG TABLET PO SCH (17:32)
[2017-06-20] MEDS: ATORVASTATIN CALCIUM 80 MG TABLET PO SCH (20:00)
[2017-06-20] MEDS: FINASTERIDE 5 MG TABLET PO SCH (20:00)
[2017-06-21] MEDS: IPRATROPIUM/ALBUTEROL SULFATE 3 ML AMPUL.NEB NEB SCH ×3 (06:03→18:16)
[2017-06-21] MEDS: PANTOPRAZOLE SODIUM 40 MG TABLET PO SCH (06:09)
[2017-06-21] MEDS: FLUTICASONE/SALMETEROL 250-50 INHALER IH SCH ×2 (08:46→19:46)
[2017-06-21] MEDS: CARVEDILOL 12.5 MG TABLET PO SCH ×2 (08:46→19:45)
[2017-06-21] MEDS: ASPIRIN EC 81 MG TABLET.DR PO SCH (08:46)
[2017-06-21] MEDS: SPIRONOLACTONE 25 MG TABLET PO SCH (08:47)
[2017-06-21] MEDS: COLCHICINE 0.6 MG TABLET PO SCH ×3 (08:47→20:18)
[2017-06-21] MEDS: FISH OIL 1,000 MG CAP PO SCH ×2 (08:48→19:45)
[2017-06-21] MEDS: FUROSEMIDE 40 MG TABLET PO SCH (08:48)
[2017-06-21] MEDS: TAMSULOSIN HCL 0.4 MG CAP.ER.24H PO SCH (08:48)
[2017-06-21] MEDS: MULTIVITAMIN 1 EACH TABLET PO SCH (08:49)
[2017-06-21] MEDS: NYSTATIN 500,000 UNIT/5 ML UDC PO SCH ×4 (08:50→20:13)
[2017-06-21] MEDS: [UNRECOGNIZED DRUG - OTHER] PO SCH ×2 (08:51→20:34)
[2017-06-21] MEDS: INSULIN REGULAR, HUMAN 100 UNIT/ML 3ML VIAL SQ SCH ×3 (08:54→18:00)
[2017-06-21] MEDS: INSULIN DETEMIR 100 UNIT/ML 3ML PEN.INJCTR SQ SCH ×2 (08:55→19:37)
[2017-06-21] MEDS ORDERED: 0.9 % SODIUM CHLORIDE 250 ML IV ONE ×2 (10:18)
[2017-06-21] MEDS ORDERED: VANCOMYCIN HCL 1 GM VIAL IV ONE ×2 (10:18)
[2017-06-21] MEDS: VANCOMYCIN HCL 1 GM in 0.9 % SODIUM CHLORIDE 250 ML IV SCH ×2 (11:00→22:00)
[2017-06-21] MEDS ORDERED: SALINE FLUSH 10 ML DISP.SYRIN IVF ONE ×2 (12:07→22:03)
[2017-06-21] MEDS: FUROSEMIDE 20 MG TABLET PO SCH (13:07)
[2017-06-21] MEDS: WARFARIN SODIUM 2.5 MG TABLET PO SCH (18:03)
[2017-06-21] MEDS: FINASTERIDE 5 MG TABLET PO SCH (19:45)
[2017-06-21] MEDS: ATORVASTATIN CALCIUM 80 MG TABLET PO SCH (19:45)
[2017-06-22] MEDS: MAG HYDROX/AL HYDROX/SIMETH 30 ML UDC PO PRN (04:52)
[2017-06-22] MEDS: IPRATROPIUM/ALBUTEROL SULFATE 3 ML AMPUL.NEB NEB SCH ×4 (05:40→18:06)
[2017-06-22] MEDS: PANTOPRAZOLE SODIUM 40 MG TABLET PO SCH (05:41)
[2017-06-22] MEDS: INSULIN REGULAR, HUMAN 100 UNIT/ML 3ML VIAL SQ SCH ×3 (07:27→16:40)
[2017-06-22] MEDS: [UNRECOGNIZED DRUG - OTHER] PO SCH ×2 (08:11→19:35)
[2017-06-22] MEDS: SPIRONOLACTONE 25 MG TABLET PO SCH (08:12)
[2017-06-22] MEDS: FLUTICASONE/SALMETEROL 250-50 INHALER IH SCH ×2 (08:12→19:34)
[2017-06-22] MEDS: FISH OIL 1,000 MG CAP PO SCH ×2 (08:13→19:33)
[2017-06-22] MEDS: TAMSULOSIN HCL 0.4 MG CAP.ER.24H PO SCH (08:13)
[2017-06-22] MEDS: ASPIRIN EC 81 MG TABLET.DR PO SCH (08:13)
[2017-06-22] MEDS: CARVEDILOL 12.5 MG TABLET PO SCH ×2 (08:13→19:38)
[2017-06-22] MEDS: FUROSEMIDE 40 MG TABLET PO SCH (08:14)
[2017-06-22] MEDS: INSULIN DETEMIR 100 UNIT/ML 3ML PEN.INJCTR SQ SCH ×2 (08:14→19:35)
[2017-06-22] MEDS ORDERED: COLCHICINE 0.6 MG TABLET PO ONE ×2 (08:16→19:28)
[2017-06-22] MEDS: COLCHICINE 0.6 MG TABLET PO SCH ×2 (08:16→19:33)
[2017-06-22] MEDS: MULTIVITAMIN 1 EACH TABLET PO SCH (08:17)
[2017-06-22] MEDS: NYSTATIN 500,000 UNIT/5 ML UDC PO SCH ×4 (08:17→19:33)
[2017-06-22] MEDS ORDERED: SALINE FLUSH 10 ML DISP.SYRIN IVF ONE ×2 (09:47→22:00)
[2017-06-22] MEDS: VANCOMYCIN HCL 1 GM in 0.9 % SODIUM CHLORIDE 250 ML IV SCH ×2 (09:48→22:00)
[2017-06-22] MEDS: FUROSEMIDE 20 MG TABLET PO SCH (13:46)
[2017-06-22] MEDS: WARFARIN SODIUM 2.5 MG TABLET PO SCH (16:43)
[2017-06-22] MEDS: FINASTERIDE 5 MG TABLET PO SCH (19:34)
[2017-06-22] MEDS: ATORVASTATIN CALCIUM 80 MG TABLET PO SCH (19:35)
[2017-06-23] MEDS: IPRATROPIUM/ALBUTEROL SULFATE 3 ML AMPUL.NEB NEB SCH ×4 (00:19→17:54)
[2017-06-23] MEDS: PANTOPRAZOLE SODIUM 40 MG TABLET PO SCH (06:06)
[2017-06-23] MEDS: INSULIN REGULAR, HUMAN 100 UNIT/ML 3ML VIAL SQ SCH ×3 (07:25→16:58)
[2017-06-23] MEDS: FLUTICASONE/SALMETEROL 250-50 INHALER IH SCH ×2 (09:08→20:58)
[2017-06-23] MEDS: NYSTATIN 500,000 UNIT/5 ML UDC PO SCH ×4 (09:08→21:07)
[2017-06-23] MEDS: FISH OIL 1,000 MG CAP PO SCH ×2 (09:09→20:59)
[2017-06-23] MEDS: SPIRONOLACTONE 25 MG TABLET PO SCH (09:09)
[2017-06-23] MEDS: INSULIN DETEMIR 100 UNIT/ML 3ML PEN.INJCTR SQ SCH ×2 (09:10→21:04)
[2017-06-23] MEDS: ASPIRIN EC 81 MG TABLET.DR PO SCH (09:13)
[2017-06-23] MEDS: TAMSULOSIN HCL 0.4 MG CAP.ER.24H PO SCH (09:13)
[2017-06-23] MEDS: FUROSEMIDE 40 MG TABLET PO SCH (09:14)
[2017-06-23] MEDS: CARVEDILOL 12.5 MG TABLET PO SCH ×2 (09:14→21:01)
[2017-06-23] MEDS: MULTIVITAMIN 1 EACH TABLET PO SCH (09:14)
[2017-06-23] MEDS: [UNRECOGNIZED DRUG - OTHER] PO SCH ×2 (09:14→21:01)
[2017-06-23] MEDS ORDERED: COLCHICINE 0.6 MG TABLET PO ONE ×2 (09:22→21:02)
[2017-06-23] MEDS: COLCHICINE 0.6 MG TABLET PO SCH ×2 (09:23→21:06)
[2017-06-23] MEDS ORDERED: SALINE FLUSH 10 ML DISP.SYRIN IVF ONE (09:35)
[2017-06-23] MEDS: VANCOMYCIN HCL IV SCH (10:16)
[2017-06-23] MEDS: SODIUM CHLORIDE 0.9% IV SCH (10:16)
[2017-06-23] MEDS: FUROSEMIDE 20 MG TABLET PO SCH (14:24)
[2017-06-23] MEDS: WARFARIN SODIUM 2.5 MG TABLET PO SCH (16:59)
[2017-06-23] MEDS ORDERED: VANCOMYCIN HCL 1 GM in 0.9 % SODIUM CHLORIDE 250 ML IV SCH (21:00)
[2017-06-23] MEDS: ATORVASTATIN CALCIUM 80 MG TABLET PO SCH (21:07)
[2017-06-23] MEDS: FINASTERIDE 5 MG TABLET PO SCH (21:07)
[2017-06-24] MEDS: IPRATROPIUM/ALBUTEROL SULFATE 3 ML AMPUL.NEB NEB SCH ×4 (00:10→17:52)
[2017-06-24] MEDS ORDERED: COLCHICINE 0.6 MG TABLET PO ONE ×3 (03:21→18:41)
[2017-06-24] MEDS: PANTOPRAZOLE SODIUM 40 MG TABLET PO SCH (06:16)
[2017-06-24] MEDS: SPIRONOLACTONE 25 MG TABLET PO SCH (09:37)
[2017-06-24] MEDS: [UNRECOGNIZED DRUG - OTHER] PO SCH ×2 (09:37→20:02)
[2017-06-24] MEDS: CARVEDILOL 12.5 MG TABLET PO SCH ×2 (09:37→20:03)
[2017-06-24] MEDS: COLCHICINE 0.6 MG TABLET PO SCH ×2 (09:37→20:03)
[2017-06-24] MEDS: FLUTICASONE/SALMETEROL 250-50 INHALER IH SCH ×2 (09:38→20:02)
[2017-06-24] MEDS: FISH OIL 1,000 MG CAP PO SCH ×2 (09:39→20:04)
[2017-06-24] MEDS: ASPIRIN EC 81 MG TABLET.DR PO SCH (09:39)
[2017-06-24] MEDS: TAMSULOSIN HCL 0.4 MG CAP.ER.24H PO SCH (09:40)
[2017-06-24] MEDS: FUROSEMIDE 40 MG TABLET PO SCH (09:41)
[2017-06-24] MEDS: NYSTATIN 500,000 UNIT/5 ML UDC PO SCH ×4 (09:42→20:05)
[2017-06-24] MEDS: MULTIVITAMIN 1 EACH TABLET PO SCH (09:42)
[2017-06-24] MEDS: INSULIN DETEMIR 100 UNIT/ML 3ML PEN.INJCTR SQ SCH ×2 (09:46→20:30)
[2017-06-24] MEDS: VANCOMYCIN HCL IV SCH (10:20)
[2017-06-24] MEDS: SODIUM CHLORIDE 0.9% IV SCH (10:20)
[2017-06-24] MEDS: INSULIN REGULAR, HUMAN 100 UNIT/ML 3ML VIAL SQ SCH ×4 (11:20→17:02)
[2017-06-24] MEDS: FUROSEMIDE 20 MG TABLET PO SCH (14:29)
[2017-06-24] MEDS: INSULIN LISPRO 100 UNIT/ML 3ML VIAL SQ ONE ×2 (15:40→17:27)
[2017-06-24] MEDS: WARFARIN SODIUM 2.5 MG TABLET PO SCH (17:01)
[2017-06-24] MEDS: ATORVASTATIN CALCIUM 80 MG TABLET PO SCH (20:04)
[2017-06-24] MEDS: FINASTERIDE 5 MG TABLET PO SCH (20:05)
[2017-06-25] MEDS ORDERED: COLCHICINE 0.6 MG TABLET PO ONE ×5 (05:54→21:28)
[2017-06-25] MEDS: IPRATROPIUM/ALBUTEROL SULFATE 3 ML AMPUL.NEB NEB SCH ×4 (06:17→17:36)
[2017-06-25] MEDS: PANTOPRAZOLE SODIUM 40 MG TABLET PO SCH (06:17)
[2017-06-25] MEDS: INSULIN REGULAR, HUMAN 100 UNIT/ML 3ML VIAL SQ SCH ×3 (08:02→16:52)
[2017-06-25] MEDS: NYSTATIN 500,000 UNIT/5 ML UDC PO SCH ×4 (10:10→20:52)
[2017-06-25] MEDS: FLUTICASONE/SALMETEROL 250-50 INHALER IH SCH ×2 (10:11→20:43)
[2017-06-25] MEDS: FISH OIL 1,000 MG CAP PO SCH ×2 (10:12→10:18)
[2017-06-25] MEDS: ATORVASTATIN CALCIUM 80 MG TABLET PO SCH ×3 (10:21→21:00)
[2017-06-25] MEDS: SPIRONOLACTONE 25 MG TABLET PO SCH (10:29)
[2017-06-25] MEDS: ASPIRIN EC 81 MG TABLET.DR PO SCH (10:31)
[2017-06-25] MEDS: TAMSULOSIN HCL 0.4 MG CAP.ER.24H PO SCH (10:32)
[2017-06-25] MEDS: traMADol HCL 50 MG TABLET PO PRN ×2 (10:37→20:56)
[2017-06-25] MEDS: FUROSEMIDE 40 MG TABLET PO SCH (10:39)
[2017-06-25] MEDS: MULTIVITAMIN 1 EACH TABLET PO SCH (10:40)
[2017-06-25] MEDS: INSULIN DETEMIR 100 UNIT/ML 3ML PEN.INJCTR SQ SCH ×2 (10:40→20:45)
[2017-06-25] MEDS: VANCOMYCIN HCL IV SCH (11:15)
[2017-06-25] MEDS: SODIUM CHLORIDE 0.9% IV SCH (11:15)
[2017-06-25 11:31] LABS: eGFR (African) > 60; eGFR (Non-African) > 60
[2017-06-25] MEDS: [UNRECOGNIZED DRUG - OTHER] PO SCH ×2 (12:18→20:56)
[2017-06-25] MEDS: CARVEDILOL 12.5 MG TABLET PO SCH ×2 (12:18→20:52)
[2017-06-25] MEDS: COLCHICINE 0.6 MG TABLET PO SCH ×2 (12:18→20:59)
[2017-06-25] MEDS ORDERED: [UNRECOGNIZED DRUG - OTHER] PO ONE (12:23)
[2017-06-25] MEDS: FUROSEMIDE 20 MG TABLET PO SCH (14:25)
[2017-06-25] MEDS ORDERED: SALINE FLUSH 10 ML DISP.SYRIN IVF ONE (14:27)
[2017-06-25] MEDS: WARFARIN SODIUM 2.5 MG TABLET PO SCH (17:37)
[2017-06-25] MEDS: FINASTERIDE 5 MG TABLET PO SCH (20:44)
[2017-06-26] MEDS: IPRATROPIUM/ALBUTEROL SULFATE 3 ML AMPUL.NEB NEB SCH ×2 (02:33→06:06)
[2017-06-26] MEDS: PANTOPRAZOLE SODIUM 40 MG TABLET PO SCH (06:03)
--- NOTE | 2017-06-26 07:29 | Discharge Summary ---
Discharge Summary - Discharge Sumary History of Present Illness: Patient is a 72-year-old white male who was recently admitted to the hospital acute care for pneumonia and diverticulitis. Patient was treated with IV antibiotic therapy. Patient was subsequently discharged home. Patient did fairly well for the first few days and then started to develop some generalized weakness. Patient subsequently was seen in the emergency room for chest pain and loss. Patient was found to have an elevated troponin was transferred over to [facility] for further evaluation and treatment. During his hospital stay there he was found to have a non-STEMI. Patient does have a history of coronary artery disease with congestive heart failure and a poor ejection fraction of 15 to 20% with global hypokinesis of the left ventricle. During his hospital stay patient has become a week. Physical therapy consult with the pain it was felt that the patient would benefit from some SNF PT and occupational therapy. Patient does have a history of diabetes mellitus and blood sugars have been stable. Patient has a history of chronic a to a fib it is on anticoagulation therapy for this.Patient was subsequently transferred to this institution for further rehab services. Condition at Discharge: Stable Home Medications: Ambulatory Orders Medication Instructions Recorded Aspirin EC [Ecotrin] 81 mg PO DAILY 04/16/16 Atorvastatin Calcium [Lipitor] 80 mg PO HS 04/16/16 Finasteride [Proscar] 5 mg PO HS 04/16/16 Insulin Glargine,Hum.rec.anlog 10 units SQ AM 04/16/16 [Lantus Solostar] Insulin Glargine,Hum.rec.anlog 25 units SQ HS 04/16/16 [Lantus Solostar] Isosorbide Mononitrate [Imdur] 90 mg PO DAILY 04/16/16 Losartan Potassium [Cozaar] 25 mg PO DAILY 04/16/16 Nitroglycerin 0.4 mg SL DIRECTED PRN 04/16/16 Omeprazole [Prilosec] 40 mg PO DAILY 04/16/16 Tamsulosin HCl [Flomax] 0.4 mg PO DAILY 04/16/16 Antiarthritic Combination No.2 900 mg PO QDAY 02/23/17 [Glucosamine-Chondroitin] Multivitamin/Ferrous Sulfate 18 mg PO QDAY 02/23/17 [One-Daily Hdtlu-Vlc-Mkas Tab] Ascorbic Acid [C-1000] 1,000 mg PO QDAY 05/02/17 Budesonide/Formoterol Fumarate 2 puff IH Q12H 05/02/17 [Symbicort 160-4.5 Mcg Inhaler] Metolazone [Zaroxolyn] 5 mg PO QD 05/02/17 [place]-3 Fatty Acids/Epa [Neurepa 1 2 gm PO BID 05/02/17 Gram Capsule] Consultations this Visit: None Procedures this Visit: None Allergies/Adverse Reactions: Allergies Allergy/AdvReac Type Severity Reaction Status Date / Time carbamazepine [From Tegretol] Allergy Verified 06/08/17 10:51 penicillin G Allergy Verified 06/08/17 10:51 phenytoin sodium Allergy Verified 06/08/17 10:51 [From Dilantin] phenytoin sodium extended Allergy Verified 06/08/17 10:51 [From Dilantin] Patient Problems: Current Active Problems Problem Status Onset Bilateral pulmonary infiltrates on chest x-ray Acute Gait disturbance Acute Discharge Summary: Patient was admitted to SNF care after hospitalization at [facility] for Non STEMI. He was also treated at [facility] for pneumonia with oral levaquin (despite the fact he had been here a month ago with pneumonia). Repeat WBC here showed 20,000. He had been 20-25,[address] [facility]. Ct of chest showed B penumonia. Given all his recent hospitalizations, patient was given vancomyin IV to treat the infection. WBC returned to normal. Patient complained of pain in L great toe for past month. Uric acid was high. Treated with cochicine and resolved. Had been on allopurinol in past and it didn't agree with him. F/U as outpatient - consider uloric. Did well with PT/OT. BS controlled with SSI. We did have some elevations when his brought him in food after we had already fed him. Hospital Course: Discharge Dx: Weakness. CAD with recent NSTEMI. Gout. Bilateral pneumonia. DM. Disposition - home with home health.
[2017-06-26] MEDS: INSULIN REGULAR, HUMAN 100 UNIT/ML 3ML VIAL SQ SCH ×2 (08:31→11:31)
[2017-06-26] MEDS: INSULIN DETEMIR 100 UNIT/ML 3ML PEN.INJCTR SQ SCH (08:34)
[2017-06-26] MEDS: NYSTATIN 500,000 UNIT/5 ML UDC PO SCH (08:36)
[2017-06-26] MEDS: FLUTICASONE/SALMETEROL 250-50 INHALER IH SCH (08:36)
[2017-06-26] MEDS: FISH OIL 1,000 MG CAP PO SCH (08:37)
[2017-06-26 08:38] VITALS: BP 127/75
[2017-06-26] MEDS: COLCHICINE 0.6 MG TABLET PO SCH (08:39)
[2017-06-26] MEDS: ASPIRIN EC 81 MG TABLET.DR PO SCH (08:40)
[2017-06-26] MEDS: SPIRONOLACTONE 25 MG TABLET PO SCH (08:40)
[2017-06-26] MEDS: MULTIVITAMIN 1 EACH TABLET PO SCH (08:41)
[2017-06-26] MEDS: TAMSULOSIN HCL 0.4 MG CAP.ER.24H PO SCH (08:41)
[2017-06-26] MEDS: [UNRECOGNIZED DRUG - OTHER] PO SCH (08:42)
[2017-06-26] MEDS: CARVEDILOL 12.5 MG TABLET PO SCH (08:42)
[2017-06-26] MEDS: FUROSEMIDE 40 MG TABLET PO SCH (08:45)
[2017-06-26] MEDS: SODIUM CHLORIDE 0.9% IV SCH (10:10)
[2017-06-26] MEDS: VANCOMYCIN HCL IV SCH (10:10)
== END 2017-06-26 12:40 | disposition home or self-care (01) | DRG 947 ==
LOC: SOUTH 11:50
PROVIDERS: ADMIT Family Medicine; ATTEND Family Medicine
DX: R53.1 Weakness (principal); J18.9 Pneumonia, unspecified organism; I25.10 Atherosclerotic heart disease of native coronary artery without angina pectoris; I10 Essential (primary) hypertension; J44.9 Chronic obstructive pulmonary disease, unspecified; M25.552 Pain in left hip; E11.9 Type 2 diabetes mellitus without complications; M10.9 Gout, unspecified
CPT/HCPCS: 36415; 71250; 80053; 80202; 82565; 84550; 85025; 85610; 94640; 94760; 97110; 97112; 97116; 97161; 97165; 97530; 97535; J1815; J2405; J3370; J7050; J7060; S1016

== ENCOUNTER 2017-07-16 07:49 | Outpatient (CLI) | payer MEDICARE, OTHER | END 2017-07-16 09:03 | LOC: POD 07:49 | PROVIDERS: ATTEND Podiatrist Public Medicine | DX: E11.9 Type 2 diabetes mellitus without complications (principal); M10.072 Idiopathic gout, left ankle and foot; B35.1 Tinea unguium; L60.0 Ingrowing nail; M79.674 Pain in right toe(s); M79.675 Pain in left toe(s) | CPT/HCPCS: 11721; G0463 ==

== ENCOUNTER 2017-08-18 10:25 | Outpatient (CLI) | payer MEDICARE, OTHER | END 2017-08-18 10:35 | LOC: LABRHC 10:25 | PROVIDERS: ATTEND Family Medicine | DX: E11.9 Type 2 diabetes mellitus without complications (principal); Z79.4 Long term (current) use of insulin | CPT/HCPCS: 83036 ==

== ENCOUNTER 2017-08-19 13:46 | Outpatient (CLI) | payer MEDICARE, OTHER | END 2017-08-19 13:47 | LOC: CARD 13:46 | PROVIDERS: ATTEND Internal Medicine Cardiovascular Disease | DX: I25.5 Ischemic cardiomyopathy (principal); I50.9 Heart failure, unspecified; I73.9 Peripheral vascular disease, unspecified; E11.9 Type 2 diabetes mellitus without complications; E78.5 Hyperlipidemia, unspecified; Z79.899 Other long term (current) drug therapy | CPT/HCPCS: G0463 ==

== ENCOUNTER 2017-09-01 04:00 | Observation (INO) | payer MEDICARE, OTHER ==
[2017-09-01] MEDS ORDERED: NITROGLYCERIN 0.4 MG TAB.SUBL SL ONE (04:18)
[2017-09-01] MEDS ORDERED: ONDANSETRON HCL/PF 4 MG/ 2ML VIAL IVP ONE (04:19)
--- NOTE | 2017-09-01 04:23 | ED Physician Documentation ---
General Adult - HISTORIAN Historian: patient, spouse - HPI Stated Complaint: sob, L arm pain Chief Complaint: General Adult Onset: minutes Timing: still present Severity: moderate Further Comments: yes (Pt is a 72 yo male who presents with sob and L arm pain. Pt awoke from sleep with coughing about 1 am and became worse with sob and came to ER about 3 hrs later. Pt was admitted earlier this month with sob and tx'd with lasix and steroids and improved. Pt's L arm pain is now 4/10 in severity. He received a HFN tx with EMT's, which he said did not improve his sob.) - ROS CONST: no problems EYES/ENT: none CVS/RESP: shortness of breath, other (L arm pain) GI/: none MS/SKIN/LYMPH: none - PAST HX Past History: other (Afib (s/p ICD), CAD, CHF, HTN, cardiomyopathy, AAA, pneumonia, CVA, seizure, diverticulosis, skin cancer, OA, Gout, BPH, DM2.) Surgeries/Procedures: cardiac bypass (x2), other (splenectomy, arthroscopy) Allergies/Adverse Reactions: Allergies Allergy/AdvReac Type Severity Reaction Status Date / Time carbamazepine [From Tegretol] Allergy Intermediate Rash Verified 09/01/17 04:18 penicillin G Allergy Intermediate Rash Verified 09/01/17 04:18 phenytoin sodium Allergy Intermediate Rash Verified 09/01/17 04:18 [From Dilantin] phenytoin sodium extended Allergy Intermediate Rash Verified 09/01/17 04:18 [From Dilantin] Home Medications: Ambulatory Orders Medication Instructions Recorded Aspirin EC [Ecotrin] 81 mg PO DAILY 04/16/16 Atorvastatin Calcium [Lipitor] 80 mg PO HS 04/16/16 Finasteride [Proscar] 5 mg PO HS 04/16/16 Insulin Glargine,Hum.rec.anlog 10 units SQ AM 04/16/16 [Lantus Solostar] Insulin Glargine,Hum.rec.anlog 25 units SQ HS 04/16/16 [Lantus Solostar] Isosorbide Mononitrate [Imdur] 90 mg PO DAILY 04/16/16 Losartan Potassium [Cozaar] 25 mg PO DAILY 04/16/16 Nitroglycerin 0.4 mg SL DIRECTED PRN 09/13/16 Tamsulosin HCl [Flomax] 0.4 mg PO DAILY 04/16/16 Antiarthritic Combination No.2 900 mg PO QDAY 02/23/17 [Glucosamine-Chondroitin] Multivitamin/Ferrous Sulfate 18 mg PO QDAY 02/23/17 [One-Daily Czwvj-Jlh-Ysqh Tab] Ascorbic Acid [C-1000] 1,000 mg PO QDAY 05/02/17 Metolazone [Zaroxolyn] 5 mg PO QD 05/02/17 [place]-3 Fatty Acids/Epa [Neurepa 1 2 gm PO BID 05/02/17 Gram Capsule] - SOCIAL HX Smoking History: non-smoker Alcohol Use: none Drug Use: none - FAMILY HX Family History: Yes (CAD, Alzheimer's) - VITAL SIGNS Vital Signs: Vital Signs Temp Pulse Resp BP Pulse Ox 104/62 08/22/17 10:00 - REVIEWED ASSESSMENTS Nursing Assessment Reviewed: Yes Vitals Reviewed: Yes Progress - Progress Progress: CXR: Continued interstitial parenchymal haziness - diffuse infiltrate versus increased volume status/congestive failure. Correlate clinically. Cardiomegaly. Zofran 4 mg IV Nitro 0.4 mg SL no change with Nitro Lasix 40 mg IV Admit to Dr. Parrish - EKG/XRAY/CT EKG: rhythm (regular rhythm with PVC's in pt with pacemaker, similar to previous ) ED Results Lab/Radiology - Orders Orders: ED Orders Category Date Time Status Continuous EKG monitoring Q30M Care 09/01/17 04:09 Active Continuous Pulse Oximetry Q30M Care 09/01/17 04:[address] IV Lock 1T Care 09/01/17 04:11 Active CHEST 1 VIEW [RAD] Stat Exams 09/01/17 Ordered CBC/PLATELET/DIFF Routine Lab 09/01/17 04:17 Received CKMB Stat Lab 09/01/17 04:20 Received CMP Routine Lab 09/01/17 04:17 Received INFLUENZA A&B Stat Lab 09/01/17 Uncollected NT-proBNP Stat Lab 09/01/17 04:17 Received PTINR [PT-INR] Routine Lab 09/01/17 04:17 Received TROPONIN I (cTnI) Stat Lab 09/01/17 04:17 Received ck [CREATINE KINASE] Routine Lab 09/01/17 04:20 Received Nitroglycerin [Nitroquick] Med 09/01/17 04:18 Discontinued 0.4 mg SL NOW ONE Ondansetron HCl/Pf [Zofran 4 mg/2 ml] Med 09/01/17 04:19 Discontinued 4 mg IVP NOW ONE EKG WITH COMPARISON Stat Ther 09/01/17 Ordered General Adult Physical Exam - PHYSICAL EXAM GENERAL APPEARANCE: moderate distress EENT: pharynx normal NECK: normal inspection, supple RESPIRATORY: no resp distress, chest non-tender, rales CVS: reg rate & rhythm, heart sounds normal ABDOMEN: soft, no organomegaly, normal bowel sounds BACK: normal inspection, no CVA tenderness SKIN: warm/dry, normal color EXTREMITIES: non-tender, normal range of motion, no evidence of injury, no edema NEURO: oriented X3, motor nml, sensation nml Discharge Clincal Impression: dyspnea Congestive heart failure (CHF) Qualifiers: Congestive heart failure type: unspecified Congestive heart failure chronicity : unspecified Qualified Code(s): I50.9 - Heart failure, unspecified Referrals: Joanne Parrish MD [Primary Care Provider] - Condition: Stable Disposition: ADMITTED INPATIENT Decision to Admit: [id number] Decision Time: 05:15
[2017-09-01 04:27] LABS: BASOPHILS % 0.3 (0.0-1.5); EOSINOPHILS % 1.5 % (0.0-6.8); MEAN CORPUSCULAR HEMOGLOBIN 24.2 pg (28.0-34.0); MEAN CORPUSCULAR VOLUME 82.7 fl (80.0-100.0); MONOCYTES % 6.8 % (0.0-11.0); NEUTROPHILS # 7.6 # k/uL (1.4-7.7)
[2017-09-01 04:42] LABS: eGFR (African) > 60; eGFR (Non-African) > 60
[2017-09-01] MEDS ORDERED: FUROSEMIDE 40 MG/4 ML VIAL IVP ONE (04:51)
[2017-09-01] MEDS ORDERED: GLIMEPIRIDE 2 MG TABLET PO SCH (05:34)
[2017-09-01] MEDS ORDERED: NITROGLYCERIN 0.4 MG TAB.SUBL SL PRN (05:34)
[2017-09-01] MEDS ORDERED: OMEPRAZOLE 20 MG CAPSULE.DR PEG SCH (06:00)
[2017-09-01] MEDS ORDERED: WARFARIN SODIUM 2.5 MG TABLET PO SCH ×2 (06:00→18:00)
[2017-09-01] MEDS ORDERED: LOSARTAN POTASSIUM 50 MG TABLET PO SCH (06:00)
[2017-09-01] MEDS ORDERED: METOLAZONE 2.5 MG TABLET PO SCH (06:00)
--- NOTE | 2017-09-01 06:47 | Diagnostic Imaging Report ---
[facility] CHOWDHURY [facility] [address] [facility] [address] [address] Report Submission Date: Sep 01, 2017 4:46:32 AM ENTRY TECH Patient Study Name: KIMBER JOSEPH Date: Sep 01, 2017 4:34:17 AM ENTRY TECH MRN: [id number] Modality Type: CR Gender: M Description: CHEST : 43 Institution: [facility] Physician: HALEIGH CHOWDHURY Examination: Portable chest History: Evaluate lungs Comparison exam: 21 August 2017 Findings: Single view of the chest demonstrates a prominent cardiac and mediastinal silhouette. Sternotomy wires. Vascular calcification by the aortic arch. Lung mckenzie demonstrate continued diffuse parenchymal haziness. Minimal blunting of the costophrenic margins. Left-sided cardiac pacemaker. articular degenerative changes. Impression: Continued interstitial parenchymal haziness - diffuse infiltrate versus increased volume status/congestive failure. Correlate clinically. Cardiomegaly. Electronically signed on Sep 01, 2017 4:46:32 AM ENTRY TECH by: Zeferino PARIKH
[2017-09-01] MEDS ORDERED: OMEPRAZOLE 20 MG CAPSULE.DR PO SCH (07:00)
--- NOTE | 2017-09-01 07:02 | History and Physical Report ---
History of Present Illnes - History of Present Illness Reason for Visit: SOB History of Present Illness: Patient came to ER early this am by ambulance after he woke up with L arm pain and "couldn't catch my breath." SAT 92% on arrival to ER on RA. Given nitro with no resolution of arm pain. EKG showed no ST changes. Cardiac enzymes negative. BNP was a little higher than when he was here a couple of weeks ago. He had just completed his prednisone from last admission. Reports had been feeling good and scales yesterday showed 2 pound decrease from the day before. Denies cough, fever, chest pain. IV lasix given in the ER. So far he hasn't noted much difference. Feels his breathing is not back to baseline but appears good to me. SAT's 96% on RA. 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 Endocrine: Diabetes (type 2) Dermatology: Other (skin cancer) - Past Surgical History Past Surgical History: Arthroscopy, CABG (x2), Other (spleenectomy) - Past Family History Mother Family History: CAD, Other (Alzheimers disease) Father Family History: Cancer (colon) - Past Social History Smoke: No Occupation: Retired from the [employer] Alcohol: None Drugs: None Lives: With Family Domestic Violence: Negative - Health Maintenance Health Maintenance: Influenza Vaccine, Pneumococcal Vaccine (23 & 13) Influenza Vaccine: Current for this Influenza Season Pneumonia Vaccine: Yes Resuscitation Status: DNR Review of Systems - Review of Systems Constitutional: negative: Fever, Chills, Weakness Eyes: negative: pain ENT: negative: Ear Pain, Nose Congestion Respiratory: negative: Cough Cardiovascular: negative: Chest Pain Gastrointestinal: negative: Nausea, Vomiting Genitourinary: negative: Dysuria Musculoskeletal: Arm Pain Skin: negative: Rash Neurological: negative: Weakness - Medications/Allergies Allergies/Adverse Reactions: Allergies Allergy/AdvReac Type Severity Reaction Status Date / Time carbamazepine [From Tegretol] Allergy Intermediate Rash Verified 09/01/17 04:18 penicillin G Allergy Intermediate Rash Verified 09/01/17 04:18 phenytoin sodium Allergy Intermediate Rash Verified 09/01/17 04:18 [From Dilantin] phenytoin sodium extended Allergy Intermediate Rash Verified 09/01/17 04:18 [From Dilantin] Current Inpatient Medications: Current Inpatient Medications Aspirin (Ecotrin) 81 mg PO DAILY [facility] Atorvastatin Calcium (Lipitor) 80 mg PO HS [facility] Carvedilol (Coreg) 25 mg PO BID [facility] Finasteride (Proscar) 5 mg PO HS [facility] Furosemide (Lasix) 40 mg IVP 714 [facility] Glimepiride (Amaryl) 4 mg PO 0730 [facility] Isosorbide Mononitrate (Imdur) 90 mg PO DAILY [facility] Losartan Potassium (Cozaar) 25 mg PO DAILY [facility] Metolazone (Zaroxolyn) 5 mg PO QD [facility] Nitroglycerin (Nitroquick) 0.4 mg SL DIRECTED PRN PRN Reason: Chest Pain Omeprazole (Omeprazole) 40 mg PO 0700 [facility] Last Admin: 09/01/17 07:00 Dose: 40 mg Fluticasone/Salmeterol (Advair 250-50 Diskus) 1 each IH BID [facility] Sodium Chloride (Normal Saline Flush) 3 ml IV BID [facility] Spironolactone (Aldactone) 12.5 mg PO QDAY [facility] Tamsulosin HCl (Flomax) 0.4 mg PO DAILY [facility] Tramadol HCl (Ultram) 50 mg PO Q12 [facility] Warfarin Sodium (Coumadin) 2.5 mg PO 1800 [facility] Exam - Exam Vital Signs: Vital Signs (72 hours) 09/01/17 09/01/17 06:16 06:20 Temperature 97.2 F L Pulse Rate [ 65 Pulse ox] Respiratory 20 16 Rate Blood Pressure 130/59 124/64 [Right Arm] O2 Sat by Pulse 93 96 Oximetry General: Alert, Oriented to Person, Oriented to Place, Oriented to Time, Cooperative, No acute distress HEENT: Atraumatic, PERRLA, EOMI, Mouth Mucous membr. moist/Relie[place] Neck: Normal Range of Motion Lungs: Normal air movement, Speaks full Sentences, Rhonchi Cardiovascular: Regular rate Murmur: Systolic Murmur Abdomen: Normal bowel sounds, Soft, No tenderness Integumentary: Normal Extremities: No edema Neurological: Normal gait, Normal speech, Strength Equal Bilat, Normal tone Psych/Mental Status: Mental status NL, Mood NL, Appropriate Affect, Intact Judgment Assessment/Plan - Assessment/Plan (1) Arm pain, left Status: Acute Current Visit: Yes Plan: Does not appear to be cardiac related. Patient to be admitted for serial cardiac enzymes and telemetry. (2) Congestive heart failure (CHF) Status: Acute Current Visit: Yes Qualifiers: Congestive heart failure type: unspecified Congestive heart failure chronicity: unspecified Qualified Code(s): I50.9 - Heart failure, unspecified Plan: BNP up mildly compared to last visit as well as CXR suggestive of pulmonary edema. No JVD, edema, or increase weight. Will do IV lasix today. Replace K+ prn. Cardiology to see patient tomorrow. (3) COPD (chronic obstructive pulmonary disease) Status: Acute Current Visit: Yes Qualifiers: COPD type: unspecified COPD Qualified Code(s): J44.9 - Chronic obstructive pulmonary disease, unspecified Plan: Mild wheeze on exam cleared with cough. Encourage IS and deep breathing. Hold on steroids for now. (4) CAD (coronary artery disease) Status: Chronic Current Visit: No Qualifiers: Coronary Disease-Associated Artery/Lesion type: bypass graft [place] vs. 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
[2017-09-01 08:03] VITALS: BMI 26.6
[2017-09-01] MEDS ORDERED: ACETAMINOPHEN 325 MG TABLET PO PRN (08:06)
[2017-09-01] MEDS ORDERED: FLUTICASONE/SALMETEROL 250-50 INHALER IH ONE (08:16)
[2017-09-01] MEDS ORDERED: SPIRONOLACTONE 25 MG TABLET PO ONE (08:17)
[2017-09-01] MEDS ORDERED: TAMSULOSIN HCL 0.4 MG CAP.ER.24H PO ONE (08:17)
[2017-09-01] MEDS ORDERED: GLIMEPIRIDE 2 MG TABLET PO ONE (08:17)
[2017-09-01] MEDS ORDERED: ISOSORBIDE MONONITRATE 30 MG TAB.ER.24H PO ONE (08:17)
[2017-09-01] MEDS ORDERED: LOSARTAN POTASSIUM 50 MG TABLET PO ONE (08:18)
[2017-09-01] MEDS ORDERED: CARVEDILOL 12.5 MG TABLET PO ONE (08:18)
[2017-09-01] MEDS ORDERED: METOLAZONE 2.5 MG TABLET PO ONE (08:19)
[2017-09-01] MEDS ORDERED: ASPIRIN EC 81 MG TABLET.DR ONE (08:19)
[2017-09-01] MEDS: GLIMEPIRIDE 2 MG TABLET PO SCH (08:43)
[2017-09-01] MEDS: TAMSULOSIN HCL 0.4 MG CAP.ER.24H PO SCH (08:44)
[2017-09-01] MEDS: METOLAZONE 2.5 MG TABLET PO SCH (08:44)
[2017-09-01] MEDS: FLUTICASONE/SALMETEROL 250-50 INHALER IH SCH ×2 (08:45→20:16)
[2017-09-01] MEDS: CARVEDILOL 12.5 MG TABLET PO SCH ×2 (08:46→20:16)
[2017-09-01] MEDS: ISOSORBIDE MONONITRATE 30 MG TAB.ER.24H PO SCH (08:47)
[2017-09-01] MEDS: ASPIRIN EC 81 MG TABLET.DR PO SCH (08:47)
[2017-09-01] MEDS: traMADol HCL 50 MG TABLET PO SCH ×2 (08:47→20:20)
[2017-09-01] MEDS: LOSARTAN POTASSIUM 50 MG TABLET PO SCH (08:48)
[2017-09-01] MEDS: SPIRONOLACTONE 25 MG TABLET PO SCH (08:49)
[2017-09-01] MEDS: SALINE FLUSH 10 ML DISP.SYRIN IV SCH ×2 (08:55→20:17)
[2017-09-01] MEDS: FUROSEMIDE 40 MG/4 ML VIAL IVP SCH (13:27)
[2017-09-01] MEDS ORDERED: ATORVASTATIN CALCIUM 80 MG TABLET PO ONE (13:55)
[2017-09-01] MEDS ORDERED: FINASTERIDE 5 MG TABLET PO ONE (13:56)
[2017-09-01] MEDS ORDERED: POTASSIUM CHLORIDE 20 MEQ TABLET.ER PO ONE (14:32)
[2017-09-01] MEDS: IPRATROPIUM/ALBUTEROL SULFATE 3 ML AMPUL.NEB NEB SCH ×3 (16:30→22:10)
[2017-09-01] MEDS ORDERED: FUROSEMIDE 40 MG/4 ML VIAL IVP SCH (18:00)
[2017-09-01] MEDS ORDERED: FINASTERIDE 5 MG TABLET PO SCH (21:00)
[2017-09-01] MEDS ORDERED: INSULIN DETEMIR 100 UNIT/ML 3ML PEN.INJCTR SQ SCH (21:00)
[2017-09-01] MEDS ORDERED: ATORVASTATIN CALCIUM 80 MG TABLET PO SCH (21:00)
[2017-09-02] MEDS: FUROSEMIDE 40 MG/4 ML VIAL IVP SCH (05:42)
[2017-09-02 06:20] LABS: MEAN CORPUSCULAR HEMOGLOBIN 24.4 pg (28.0-34.0); MEAN CORPUSCULAR VOLUME 82.4 fl (80.0-100.0)
[2017-09-02 06:51] LABS: eGFR (African) > 60; eGFR (Non-African) 57
[2017-09-02] MEDS ORDERED: PANTOPRAZOLE SODIUM 40 MG TABLET PO SCH (07:00)
[2017-09-02 07:03] LABS: BASOPHILS % 1 % (0-2); EOSINOPHILS % 5 % (0-7); MONOCYTES % 4 % (0-11); SEGMENTED NEUTROPHILS % 71 % (39-79)
[2017-09-02] MEDS: GLIMEPIRIDE 2 MG TABLET PO SCH (07:12)
[2017-09-02] MEDS: IPRATROPIUM/ALBUTEROL SULFATE 3 ML AMPUL.NEB NEB SCH ×2 (08:31→12:36)
[2017-09-02] MEDS: FLUTICASONE/SALMETEROL 250-50 INHALER IH SCH (08:51)
[2017-09-02] MEDS: LOSARTAN POTASSIUM 50 MG TABLET PO SCH (08:51)
[2017-09-02] MEDS: SPIRONOLACTONE 25 MG TABLET PO SCH (08:51)
[2017-09-02] MEDS: METOLAZONE 2.5 MG TABLET PO SCH (08:51)
[2017-09-02] MEDS: ASPIRIN EC 81 MG TABLET.DR PO SCH (08:52)
[2017-09-02] MEDS: CARVEDILOL 12.5 MG TABLET PO SCH (08:52)
[2017-09-02] MEDS: TAMSULOSIN HCL 0.4 MG CAP.ER.24H PO SCH (08:53)
[2017-09-02] MEDS: ISOSORBIDE MONONITRATE 30 MG TAB.ER.24H PO SCH (08:53)
[2017-09-02] MEDS: SALINE FLUSH 10 ML DISP.SYRIN IV SCH (08:54)
[2017-09-02] MEDS: traMADol HCL 50 MG TABLET PO SCH (08:54)
[2017-09-02] MEDS ORDERED: POTASSIUM CHLORIDE 20 MEQ TABLET.ER PO ONE (12:08)
--- NOTE | 2017-09-02 12:14 | Discharge Summary ---
Discharge Summary - Discharge Sumary History of Present Illness: Patient came to ER early this am by ambulance after he woke up with L arm pain and "couldn't catch my breath." SAT 92% on arrival to ER on RA. Given nitro with no resolution of arm pain. EKG showed no ST changes. Cardiac enzymes negative. BNP was a little higher than when he was here a couple of weeks ago. He had just completed his prednisone from last admission. Reports had been feeling good and scales yesterday showed 2 pound decrease from the day before. Denies cough, fever, chest pain. IV lasix given in the ER. So far he hasn't noted much difference. Feels his breathing is not back to baseline but appears good to me. SAT's 96% on RA. Condition at Discharge: Stable Home Medications: Ambulatory Orders Medication Instructions Recorded Aspirin EC [Ecotrin] 81 mg PO DAILY 04/16/16 Atorvastatin Calcium [Lipitor] 80 mg PO HS 04/16/16 Finasteride [Proscar] 5 mg PO HS 04/16/16 Insulin Glargine,Hum.rec.anlog 10 units SQ AM 04/16/16 [Lantus Solostar] Insulin Glargine,Hum.rec.anlog 25 units SQ HS 04/16/16 [Lantus Solostar] Isosorbide Mononitrate [Imdur] 90 mg PO DAILY 04/16/16 Losartan Potassium [Cozaar] 25 mg PO DAILY 04/16/16 Nitroglycerin 0.4 mg SL DIRECTED PRN 04/16/16 Tamsulosin HCl [Flomax] 0.4 mg PO DAILY 04/16/16 Antiarthritic Combination No.2 900 mg PO QDAY 02/23/17 [Glucosamine-Chondroitin] Multivitamin/Ferrous Sulfate 18 mg PO QDAY 02/23/17 [One-Daily Wsbef-Pyh-Hnjh Tab] Ascorbic Acid [C-1000] 1,000 mg PO QDAY 05/02/17 Metolazone [Zaroxolyn] 5 mg PO QD 05/02/17 [place]-3 Fatty Acids/Epa [Neurepa 1 2 gm PO BID 05/02/17 Gram Capsule] Consultations this Visit: None Procedures this Visit: None Allergies/Adverse Reactions: Allergies Allergy/AdvReac Type Severity Reaction Status Date / Time carbamazepine [From Tegretol] Allergy Intermediate Rash Verified 09/01/17 04:18 penicillin G Allergy Intermediate Rash Verified 09/01/17 04:18 phenytoin sodium Allergy Intermediate Rash Verified 09/01/17 04:18 [From Dilantin] phenytoin sodium extended Allergy Intermediate Rash Verified 09/01/17 04:18 [From Dilantin] Patient Problems: Current Active Problems Problem Status Onset Arm pain, left Acute COPD (chronic obstructive pulmonary disease) Acute Congestive heart failure (CHF) Acute Discharge Summary: Patient admitted with L arm pain and SOB for r/o [facility]. Cardiac enzymes remained normal as well as EKG. Pain resolved with tylenol. SOB resolved - possibly with IV Lasix. Will follow closely as an outpatient. Cardiology as outpatient. Discharged home in good condition. Hospital Course: Discharge Dx: L arm pain. CAD. CHF. DM. Disposition - home
[2017-09-02] MEDS ORDERED: POTASSIUM CHLORIDE 20 MEQ TABLET.ER ONE (12:35)
[2017-09-02 14:18] VITALS: BP 124/84
== END 2017-09-02 13:45 | disposition home or self-care (01) ==
LOC: ED 04:00 → INTOOBSV 05:50 → SOUTH 05:50 → UNDOADMIN 05:50
PROVIDERS: ADMIT Family Medicine; ATTEND Family Medicine
DX: I50.9 Heart failure, unspecified (principal); J44.9 Chronic obstructive pulmonary disease, unspecified; I25.810 Atherosclerosis of coronary artery bypass graft(s) without angina pectoris; E11.8 Type 2 diabetes mellitus with unspecified complications; Z79.4 Long term (current) use of insulin; M79.601 Pain in right arm
CPT/HCPCS: 36415; 71010; 80053; 82550; 82553; 83880; 84484; 85025; 85610; 87400; 93005; 94640; 94760; 96374; 96375; 99283; 99284; A9270; G0378; J1815; J1940; J2405; 99217; 99219; S1016

== ENCOUNTER 2017-09-11 06:02 | Emergency (ER) | payer MEDICARE, OTHER ==
--- NOTE | 2017-09-11 06:29 | ED Physician Documentation ---
Dyspnea - HISTORIAN Historian: patient - HPI Chief Complaint: Dyspnea Additional Information: say "i have chf", states SOA x 8 hrs, no O2 at home. Says " it hurts across here " motioning across his chest. no sweating, no illness. No GI symptoms. seems happy to be here. Onset: hours Duration: continues in ED Severity: mild Exacerbated By: exertion, laying flat Associated Symptoms: none, chest pain, chest discomfort Further Comments: no - ROS CONST: no problems EYES/ENT: none GI/: none NEURO/PSYCH: denies: headache MS/SKIN/LYMPH: none - PAST HX Cardiac Disease: CHF PE Risk Factors: hypertension. denies: leg swelling Other History: diabetes Type 1, hyperlipidemia Immunizations: UTD - SOCIAL HX Smoking History: non-smoker Alcohol Use: none Drug Use: none - FAMILY HX Family History: none - VITAL SIGNS Vital Signs: Vital Signs Temp Pulse Resp BP Pulse Ox 124/63 09/02/17 09:55 - REVIEWED ASSESSMENTS Nursing Assessment Reviewed: Yes Vitals Reviewed: Yes <Tom Cowart - Last Filed: 09/11/17 06:26> - PAST HX Lung Disease: bronchitis - VITAL SIGNS Vital Signs: Vital Signs Temp Pulse Resp BP Pulse Ox 96.5 F L 68 22 133/76 94 09/11/17 06:02 09/11/17 06:02 09/11/17 06:02 09/11/17 06:02 09/11/17 07:02 <Willie Tello - Last Filed: 09/11/17 09:03> - PAST HX Allergies/Adverse Reactions: Allergies Allergy/AdvReac Type Severity Reaction Status Date / Time carbamazepine [From Tegretol] Allergy Intermediate Rash Verified 09/11/17 06:20 penicillin G Allergy Intermediate Rash Verified 09/11/17 06:20 phenytoin sodium Allergy Intermediate Rash Verified 09/11/17 06:20 [From Dilantin] phenytoin sodium extended Allergy Intermediate Rash Verified 09/11/17 06:20 [From Dilantin] Home Medications: Ambulatory Orders Medication Instructions Recorded Aspirin EC [Ecotrin] 81 mg PO DAILY 04/16/16 Atorvastatin Calcium [Lipitor] 80 mg PO HS 04/16/16 Finasteride [Proscar] 5 mg PO HS 04/16/16 Insulin Glargine,Hum.rec.anlog 10 units SQ AM 04/16/16 [Lantus Solostar] Insulin Glargine,Hum.rec.anlog 25 units SQ HS 04/16/16 [Lantus Solostar] Isosorbide Mononitrate [Imdur] 90 mg PO DAILY 04/16/16 Losartan Potassium [Cozaar] 25 mg PO DAILY 04/16/16 Nitroglycerin 0.4 mg SL DIRECTED PRN 04/16/16 Tamsulosin HCl [Flomax] 0.4 mg PO DAILY 04/16/16 Antiarthritic Combination No.2 900 mg PO QDAY 02/23/17 [Glucosamine-Chondroitin] Multivitamin/Ferrous Sulfate 18 mg PO QDAY 02/23/17 [One-Daily Bppuh-Uux-Sgah Tab] Ascorbic Acid [C-1000] 1,000 mg PO QDAY 05/02/17 Metolazone [Zaroxolyn] 5 mg PO QD 05/02/17 [place]-3 Fatty Acids/Epa [Neurepa 1 2 gm PO BID 05/02/17 Gram Capsule] Doxycycline Hyclate 100 mg PO Q12H #20 tablet 09/11/17 Omeprazole [Prilosec] 40 mg PO 0700 09/11/17 Progress - Progress Progress: CXR: 1. Cardiomegaly with aortic calcification and pulmonary vascular congestion. Pleural calcification. 2. Diffuse interstitial and airspace opacities persist suggestive of pulmonary edema/ multifocal infiltrates. Small right pleural effusion. Duoneb HFN Lasix 40 mg IV Rx Doxycycline 100 mg po bid x 10 days. - EKG/XRAY/CT EKG: rhythm (paced rhythm, HR=65.) <Willie Tello Last Filed: 09/11/17 09:03> ED Results Lab/Radiology - Orders Orders: ED Orders Category Date Time Status Assess pulse oximetry Q1H Care 09/11/17 06:23 Ordered CHEST P.A.&LAT 2 VIEWS [RAD] Stat Exams 09/11/17 Ordered BNP [NT-proBNP] Stat Lab 09/11/17 Ordered CBC/PLATELET/DIFF Routine Lab 09/11/17 Ordered CMP Routine Lab 09/11/17 Ordered CREATINE KINASE Routine Lab 09/11/17 Ordered D DIMER Stat Lab 09/11/17 Ordered PT-INR Routine Lab 09/11/17 Ordered TROPONIN I (cTnI) Stat Lab 09/11/17 Ordered Ipratropium/Albuterol Sulfate [Duoneb] Med 09/11/17 06:23 Once 3 ml NEB NOW ONE Oxygen Daily Oxygen 09/11/17 06:30 Ordered EKG WITH COMPARISON Stat Ther 09/11/17 Ordered <Tom Cowart - Last Filed: 09/11/17 06:26> - Lab Results Lab Results: Lab Results 09/11/17 09/11/17 09/11/17 06:25 06:25 06:25 WBC RBC Hgb Hct MCV MCH MCHC RDW Plt Count Neut % (Auto) Lymph % (Auto) [place] % (Auto) Eos % (Auto) Baso % (Auto) Neut # (Auto) Lymph # (Auto) [place] # (Auto) Eos # (Auto) Baso # (Auto) Reactive Lymphs % Reactive Lymphs # PT 33.0 Seconds H Seconds (9.4-11.6) INR 3.10 H (0.9-1.2) D-Dimer 241 ng/mL ng/mL (6.0-682) Sodium 140 mmol/L mmol/L (136-145) Potassium 4.1 mmol/L mmol/L (3.5-5.1) Chloride 103 mmol/L mmol/L (98-107) Carbon Dioxide 24 mmol/L mmol/L (22-30) BUN 47 mg/dL H mg/dL (9-20) Creatinine 1.20 mg/dL mg/dL (0.66-1.25) Estimated Creat Clear 53 Est GFR ( Amer) > 60 (60 - ) Est GFR (Non-Af Amer) > 60 (60 - ) Glucose 188 mg/dL H mg/dL (74-106) Calcium 9.5 mg/dL mg/dL (8.4-10.2) Total Bilirubin 1.0 mg/dL mg/dL (0.2-1.3) AST 72 U/L H U/L (15-46) ALT 75 U/L H U/L (13-69) Alkaline Phosphatase 128 U/L H U/L (38-126) Creatine Kinase 59 U/L U/L (55-170) Troponin I < 0.03 ng/mL L ng/mL (0.03-0.06) NT-Pro-B Natriuret Pep 2637.3 pg/mL H pg/mL (15.0-125.0) Total Protein 6.9 g/dL g/dL (6.3-8.2) Albumin 3.8 g/dL g/dL (3.5-5.0) 09/11/17 06:25 WBC 8.70 K/ul K/ul (4.00-12.00) RBC 4.25 M/ul M/ul (3.90-5.20) Hgb 10.2 g/dL L g/dL (12.0-18.0) Hct 33.6 % L % (37.0-53.0) MCV 79.1 fl L fl (80.0-100.0) MCH 23.9 pg L pg (28.0-34.0) MCHC 30.3 g/dL g/dL (30.0-36.0) RDW 18.3 % H % (11.3-14.3) Plt Count 274 K/mm3 K/mm3 (130-400) Neut % (Auto) 65.8 % % (39.0-79.0) Lymph % (Auto) 20.3 % % (16.0-50.0) Gila % (Auto) 9.2 % % (0.0-11.0) Eos % (Auto) 1.6 % % (0.0-6.8) Baso % (Auto) 0.9 (0.0-1.5) Neut # (Auto) 5.7 # k/uL # k/uL (1.4-7.7) Lymph # (Auto) 1.8 # k/uL # k/uL (0.6-4.0) Gila # (Auto) 0.8 # k/uL # k/uL (0.0-0.9) Eos # (Auto) 0.1 # k/uL # k/uL (0.0-0.6) Baso # (Auto) 0.1 # k/uL # k/uL (0.0-0.5) Reactive Lymphs % 2.2 % % (0.0-5.0) Reactive Lymphs # 0.2 # k/uL # k/uL (0.0-0.8) PT INR D-Dimer Sodium Potassium Chloride Carbon Dioxide BUN Creatinine Estimated Creat Clear Est GFR ( Amer) Est GFR (Non-Af Amer) Glucose Calcium Total Bilirubin AST ALT Alkaline Phosphatase Creatine Kinase Troponin I NT-Pro-B Natriuret Pep Total Protein Albumin - Orders Orders: ED Orders Category Date Time Status Assess pulse oximetry Q1H Care 09/11/17 06:23 Active CHEST P.A.&LAT 2 VIEWS [RAD] Stat Exams 09/11/17 Completed BNP [NT-proBNP] Stat Lab 09/11/17 06:25 Completed CBC/PLATELET/DIFF Routine Lab 09/11/17 06:25 Completed CMP Routine Lab 09/11/17 06:25 Completed CREATINE KINASE Routine Lab 09/11/17 06:25 Completed D DIMER Stat Lab 09/11/17 06:25 Completed PT-INR Routine Lab 09/11/17 06:25 Completed TROPONIN I (cTnI) Stat Lab 09/11/17 06:25 Completed Furosemide [Lasix] Med 09/11/17 07:45 Discontinued 40 mg .ROUTE .STK-MED ONE Furosemide [Lasix] Med 09/11/17 08:00 Discontinued 40 mg IM 714 Furosemide [Lasix] Med 09/11/17 07:45 Discontinued 40 mg IVP NOW ONE Ipratropium/Albuterol Sulfate [Duoneb] Med 09/11/17 06:23 Discontinued 3 ml NEB NOW ONE Oxygen Daily Oxygen 09/11/17 06:30 Ordered EKG WITH COMPARISON Stat Ther 09/11/17 Ordered <Willie Tello - Last Filed: 09/11/17 09:03> Dyspnea Physical Exam - EXAM General Appearance: no acute distress, alert EENT: eye inspection normal, ENT inspection normal, pharynx normal, no signs of dehydration Neck: nml inspection Respiratory: no resp. distress, breath sounds nml, no pain on inspiration, speaks full sentences. No: wheezes, rales, rhonchi CVS: reg. rate & rhythm, no murmur, no friction rub, pulses full, pulses equal Abdomen: non-tender Skin: color nml Extremities: non-tender Neuro/Psych: oriented x3, motor nml, sensation nml, mood/affect nml <Tom Cowart - Last Filed: 09/11/17 06:26> Discharge <Tom Cowart - Last Filed: 09/11/17 06:26> Decision to Admit: NO Decision Time: 08:57 <Willie Tello - Last Filed: 09/11/17 09:03> Clincal Impression: possible interstitial infiltrates Congestive heart failure (CHF) Qualifiers: Congestive heart failure type: unspecified Congestive heart failure chronicity : chronic Qualified Code(s): I50.9 - Heart failure, unspecified Prescriptions: Doxycycline Hyclate 100 mg PO Q12H #20 tablet Referrals: Joanne Parrish MD [Primary Care Provider] - Condition: Stable Disposition: 01 HOME, SELF-CARE
[2017-09-11 06:36] LABS: BASOPHILS % 0.9 (0.0-1.5); EOSINOPHILS % 1.6 % (0.0-6.8); MEAN CORPUSCULAR HEMOGLOBIN 23.9 pg (28.0-34.0); MEAN CORPUSCULAR VOLUME 79.1 fl (80.0-100.0); MONOCYTES % 9.2 % (0.0-11.0); NEUTROPHILS # 5.7 # k/uL (1.4-7.7)
--- NOTE | 2017-09-11 06:50 | Diagnostic Imaging Report ---
DEANGELO REHMAN [facility] [address] [facility] [address] [place], [place]. 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 Left chest wall pacemaker has its leads terminating in the right atrium and right ventricle. There are persistent diffuse parahilar and bibasilar opacities. Reticular interstitial markings are prominent. Right costophrenic angle is blunted. Biapical pleural calcification is seen. No acute osseous pathology. Impression: 1. Cardiomegaly with aortic calcification and pulmonary vascular congestion. Pleural calcification 2. Diffuse interstitial and airspace opacities persist suggestive of pulmonary edema/ multifocal infiltrates. Small right pleural effusion Electronically signed on Sep 11, 2017 6:48:53 AM OBSTETRICIAN GYNECOLOGIST by: Mitzi PARIKH
[2017-09-11 07:14] LABS: eGFR (African) > 60; eGFR (Non-African) > 60
[2017-09-11] MEDS: IPRATROPIUM/ALBUTEROL SULFATE 3 ML AMPUL.NEB NEB ONE (07:24)
[2017-09-11] MEDS: FUROSEMIDE 40 MG/4 ML VIAL IVP ONE (08:00)
[2017-09-11] MEDS: FUROSEMIDE 40 MG/4 ML VIAL ONE (08:34)
[2017-09-11] MEDS: FUROSEMIDE 40 MG/4 ML VIAL IM SCH (08:34)
[2017-09-11 09:14] VITALS: BP 127/66
== END 2017-09-11 09:12 | disposition home or self-care (01) ==
LOC: ED 06:02
DX: I50.9 Heart failure, unspecified (principal); I10 Essential (primary) hypertension; E11.9 Type 2 diabetes mellitus without complications; E78.5 Hyperlipidemia, unspecified
CPT/HCPCS: 36415; 71020; 80053; 82550; 83880; 84484; 85025; 85379; 85610; 93005; J1940; 94640; 96374; 99283; S1016

== ENCOUNTER 2017-09-22 08:01 | Outpatient (CLI) | payer MEDICARE, OTHER | END 2017-09-22 08:02 | LOC: LAB 08:01 | PROVIDERS: ATTEND Internal Medicine Cardiovascular Disease | DX: I48.2 Chronic atrial fibrillation (principal); Z79.899 Other long term (current) drug therapy | CPT/HCPCS: 36415; 85610 ==

== ENCOUNTER 2017-10-13 08:43 | Outpatient (CLI) | payer MEDICARE, OTHER | END 2017-10-13 10:00 | LOC: LAB 08:43 | PROVIDERS: ATTEND Internal Medicine Cardiovascular Disease | DX: I48.2 Chronic atrial fibrillation (principal) | CPT/HCPCS: 36415; 85610 ==

== ENCOUNTER 2017-10-15 08:31 | Outpatient (CLI) | payer MEDICARE, OTHER | END 2017-10-15 09:50 | LOC: POD 08:31 | PROVIDERS: ATTEND Podiatrist Public Medicine | DX: E11.9 Type 2 diabetes mellitus without complications (principal); M10.072 Idiopathic gout, left ankle and foot; B35.1 Tinea unguium; L60.0 Ingrowing nail; M79.674 Pain in right toe(s); M79.675 Pain in left toe(s) | CPT/HCPCS: 11721; G0463 ==

== ENCOUNTER 2017-10-30 15:54 | Outpatient (CLI) | payer MEDICARE, OTHER ==
[2017-10-30 16:12] LABS: MEAN CORPUSCULAR HEMOGLOBIN 21.9 pg (28.0-34.0); MEAN CORPUSCULAR VOLUME 74.9 fl (80.0-100.0)
--- NOTE | 2017-10-30 18:38 | Diagnostic Imaging Report ---
RUTHIE MITCHELL [facility] [address] [facility] [address] [address] Report Submission Date: Oct 30, 2017 4:21:55 PM CDT Patient Study Name: KIMBER JOSEPH Date: Oct 30, 2017 4:05:28 PM CDT Modality Type: DX Gender: M Description: CHEST : 41 Institution: [facility] Physician: RUTHIE MITCHELL Examination: PA and lateral chest. History: CXR, HEMOPTYSIS, PT STATES COUGH X2 WEEKS (Hx) Comparison exam: None provided. Findings: PA lateral chest demonstrate a prominent cardiac and mediastinal silhouette. Sternotomy wires. Vascular calcifications involving aortic arch. Chronic interstitial changes. No focal infiltrate. No blunting of the costophrenic margins. Left-sided cardiac pacemaker. Articular degenerative changes. Impression: Chronic parenchymal changes. No acute appearing pulmonary process. Electronically signed on Oct 30, 2017 4:21:55 PM CDT by: Zeferino PARIKH
== END 2017-10-30 15:55 ==
LOC: LAB 15:54
PROVIDERS: ATTEND Family Medicine
DX: R04.0 Epistaxis (principal); I48.2 Chronic atrial fibrillation; Z79.899 Other long term (current) drug therapy
CPT/HCPCS: 36415; 71046; 85027; 85610